=== PATIENT | female | born 1955 | race Caucasian/White ===

== ENCOUNTER → 2018-02-23 | Outpatient (CLI) | payer MEDICARE, OTHER ==
[~2018-02-23] MED LIST: ARIP1TAB12 PO; ATOR80TA45 PO; BUPR300T PO; DOCU1CAP66 PO; ESCI20TA PO; GABA300C5 PO; GLUC500T4 PO; LEVO.15 PO; LORA-650 PO; METF500T PO; MODA1TAB31 PO; OMEG1CAP53 PO; OMEP40CA2 PO; PHEN30CA2 PO; PREM0.3T2 PO; VALS1TAB64 PO
[2018-02-23 11:43] LABS: HEMATOCRIT 38.3 % (35.0-46.0); HEMOGLOBIN 12.5 GM/DL (11.6-15.3); MEAN CELL VOLUME 94.5 FL (80.0-100.0); MEAN CORPUSCULAR HGB CONC 32.8 % (32.0-36.0); MEAN PLATELET VOLUME 7.1 FL (7.0-11.0); PLATELET COUNT 260 TH/MM3 (150-450); RED BLOOD COUNT 4.05 MIL/MM3 (4.00-5.30); RED CELL DISTRIBUTION WIDTH 13.7 % (11.6-17.2); WHITE BLOOD COUNT 5.8 TH/MM3 (4.0-11.0)
[2018-02-23 12:10] LABS: BICARBONATE 29.8 MEQ/L (21.0-32.0); CALCIUM 9.2 MG/DL (8.5-10.1); CREATININE 0.95 MG/DL (0.50-1.00)
[2018-02-23 13:12] LABS: BILIRUBIN, URINE NEG (NEG); BLOOD, URINE NEG (NEG); GLUCOSE,URINE NEG (NEG); KETONE, URINE NEG (NEG); MUCUS URINE FEW /lpf (OCC); NITRITE,URINE NEG (NEG); PH, URINE 5.5 (5.0-8.5); SQUAMOUS EPITHELIAL CELL URINE 3 /hpf (0-5); URINE COLOR LIGHT-YELLOW (YELLW/STRAW); URINE LEUKOCYTE ESTERASE NEG (NEG)
--- NOTE | 2018-02-23 13:30 | EKG ---
Date Performed: 02/23/2018 Time Performed: 11:13:00 PTAGE: 62 years EKG: Sinus rhythm BORDERLINE LEFT AXIS DEVIATION LOW QRS VOLTAGE IN PRECORDIAL LEADS BORDERLINE ECG NO PREVIOUS TRACING DOCTOR: Jac Ortega Interpretating Date/Time 02/23/2018 13:26:44
== END ==
LOC: CPRE 10:51
PROVIDERS: ATTEND Thoracic Surgery (Cardiothoracic Vascular Surgery)
DX: Z01.810 Encounter for preprocedural cardiovascular examination (principal); Z01.812 Encounter for preprocedural laboratory examination; Z01.818 Encounter for other preprocedural examination; R91.8 Other nonspecific abnormal finding of lung field; R94.31 Abnormal electrocardiogram [ECG] [EKG]
CPT/HCPCS: 36415; 80048; 81001; 85027; 85610; 85730; 93005

== ENCOUNTER 2018-03-02 05:27 | Inpatient (IN) | payer MEDICARE, OTHER ==
[2018-03-02] VITALS (10 sets, daily range): BP systolic 98–123; BP diastolic 57–79; PULSE 67–77; RESP 20; TEMP 97.7–98.4; O2SAT 94–97
[~2018-03-02] VITALS: Ht 172.7 cm; Wt 139.0 kg
[2018-03-02] MEDS ORDERED: SODIUM CHLORID 0.9% 500 ML IV PRN (06:00)
[2018-03-02] MEDS ORDERED: METOPROLOL TARTRATE 25 MG TAB PO PRN (06:00)
[2018-03-02] MEDS ORDERED: POVIDONE IODINE 5% (ANTISEPSIS KIT) 4 APPLICATIONS EACH NARE PRN (06:00)
[2018-03-02] MEDS ORDERED: LACTATED RINGER'S 1000 ML IV PRN (06:00)
[2018-03-02] MEDS ORDERED: CHLORHEXIDINE GLUCONATE 2 % 1 PACK (2 CLOTHS) TOPICAL PRN (06:00)
[2018-03-02] MEDS ORDERED: ceFAZolin 2 GM PREMIX 50 ML ONE (06:48)
[2018-03-02] MEDS ORDERED: fentaNYL CITRATE 250 MCG/5 ML AMP ONE (06:58)
[2018-03-02] MEDS ORDERED: BUPIVACAINE LIPOSO PF 1.3% INJ 20 ML, DEXAMETHASONE INJ 4 MG, MORPHINE INJ 8 MG in SODI... IRRIGATION SCH (07:45)
[2018-03-02] MEDS ORDERED: SUGAMMADEX SODIUM 200 MG/2 ML VIAL IV PUSH ONE (10:49)
[2018-03-02] MEDS ORDERED: NALOXONE HCL 0.4 MG/ML AMP IV PUSH PRN (11:45)
[2018-03-02] MEDS ORDERED: Post-op Orders (for Pharmacy) OTHER ONE (11:45)
[2018-03-02] MEDS ORDERED: SODIUM CHLORIDE 0.9% FLUSH 10 ML FLUSH IV FLUSH PRN (11:45)
--- NOTE | 2018-03-02 11:49 | PD.OP ---
cc: Scot Dhillon MD; Viki Luu MD Operative Report Date of Surgery: Mar 02, 2018 Preoperative Diagnosis: Postoperative Diagnosis: Procedure: 1. Right Posterolateral Thoracotomy 2. Right Upper Lobectomy 3. Mediastinal Lymph Node Dissection 4. Intercostal Nerve Block Surgeon: Scot Dhillon Roller Machine Operator(s): Lisa Molina Operation and Findings: PREOPERATIVE DIAGNOSIS 1. Right Upper Lobe Lung Mass 2. COPD 3. Diabetes mellitus POSTOPERATIVE DIAGNOSIS same PROCEDURES 1. Right Posterolateral Thoracotomy 2. Right Upper Lobectomy 3. Mediastinal Lymph Node Dissection 4. Intercostal Nerve Block SURGEON Scot Dhillon MD YARD GENERAL CAR SUPERVISOR Krista Molina PA-C ANESTHESIA General double-lumen endotracheal. ELECTRICAL LINEWORKER PHUONG Jane MD DRAINS [address] COUNTS Needle, sponge, and instrument counts were correct. COMPLICATIONS None. INDICATION FOR PROCEDURE The patient is a 62 yo lady with PET positive RUL spiculated lung mass, presenting for surgical resection. DESCRIPTION OF PROCEDURE The patient was brought to the operating suite and placed in supine position. Following satisfactory induction of general double-lumen endotracheal anesthesia , the patient was placed in the left lateral decubitus position. The right chest and surrounding area was then prepped and draped in the usual sterile fashion. A standard muscle-sparing posterolateral thoracotomy was performed and the serratus anterior muscle spared. The pleural space was entered. Exploration of the chest revealed mass in the upper lobe. The inferior pulmonary ligament was divided. The pulmonary arterial supply to the upper lobe was identified, dissected free and divided as was the pulmonary venous supply. The bronchus was then dissected free, clamped and the remaining lung was insufflated without any difficulty. Lymph node dissections of level 4, 7, 8, 9 and 10 were performed along with the course of this removal. Some of these were retained with the specimen. Specimen was removed from the chest. The remaining lung was submerged under sterile water and inflated. No air leaks were identified. At this point the closure was undertaken. A 32-Kyrgyz chest tube was placed. Intercostal nerve block was performed at the level of the incision and 3 rib spaces above and below using Exparel with Decadron solution. The pericostal space was approximated with interrupted #1 Vicryl sutures in a pericostal fashion. The serratus fascia and Latissimus dorsi were closed with running 0-Vicryl and the remaining wounds closed with 3-0, and 4-0 Monocryl. The patient tolerated the procedure well and postoperatively went to the PACU in stable condition. Scot Dhillon MD Mar 02, 2018 11:48
[2018-03-02] MEDS ORDERED: PHENYLEPH/NS 1000 MCG/10 ML SYR IV ONE (12:00)
[2018-03-02] MEDS ORDERED: LIDOCAINE HCL 1% PF 5 ML SYRINGE OTHER ONE (12:00)
[2018-03-02] MEDS ORDERED: LABETALOL HCL 100 MG/20 ML VIAL IV ONE (12:00)
[2018-03-02] MEDS ORDERED: DEXAMETHASONE SOD PHOS 4 MG/ML VIAL IV ONE (12:00)
[2018-03-02] MEDS ORDERED: DO NOT ADM ANY ANTICOAGULANT DRUGS PRN (12:00)
[2018-03-02] MEDS ORDERED: ROCURONIUM INJ 50 MG/5 ML SYRINGE IV PUSH ONE (12:00)
[2018-03-02] MEDS ORDERED: ONDANSETRON HCL 4 MG/2 ML VIAL IV ONE (12:00)
[2018-03-02] MEDS ORDERED: VECURONIUM BROMIDE 20 MG VIAL IV ONE (12:00)
[2018-03-02] MEDS ORDERED: ePHEDrine/NS 25 MG/5 ML SYRINGE IV ONE (12:00)
[2018-03-02] MEDS ORDERED: PROPOFOL 200 MG/20 ML AMP IV ONE (12:00)
--- NOTE | 2018-03-02 12:44 | RADRPT ---
EXAM DATE/TIME: 03/02/2018 12:25 [facility] COMPARISON: No previous studies available for comparison. INDICATIONS : Post thoracotomy and right upper lobectomy, post chest tube placement MEDICAL HISTORY : lung mass SURGICAL HISTORY : thoracotomy, chest tube, lobectomy right upper lung ENCOUNTER: Initial ACUITY: 1 day PAIN SCORE: Non-responsive. LOCATION: Bilateral chest FINDINGS: A single AP portable semierect view of the chest was obtained and demonstrates a right-sided chest tu be in place with no visualized pneumothorax. There is volume loss in the right hemithorax with medias tinal shift to the right. There is mild hazy opacity in the right lung. There is streaky opacity at t he left lung base. The heart size appears mildly prominent. Mild subcutaneous emphysema is noted over lower right lateral chest wall. The patient is mildly rotated. There is no distinct effusion. CONCLUSION: 1. Postsurgical changes status post right thoracotomy with volume loss and mediastinal shift to the r ight. 2. Right-sided chest tube in place with no visualized pneumothorax. 3. Mild hazy opacity in the right lung. 4. Mild patchy opacity at the left lung base. Cisco Villa MD on March 02, 2018 at 12:41 Board Certified Radiologist. This report was verified electronically.
[2018-03-02] MEDS ORDERED: RESP: ALBUTEROL 2.5 MG/3 ML NEB (PRN) NEB (13:00)
[2018-03-02] MEDS ORDERED: ONDANSETRON HCL 4 MG/2 ML VIAL IV PUSH PRN (13:00)
[2018-03-02] MEDS ORDERED: ACETAMINOPHEN 325 MG TAB PO PRN (13:00)
[2018-03-02] MEDS ORDERED: PHENTERMINE 30 MG PO SCH (13:00)
[2018-03-02] MEDS: LACTATED RINGER'S 1000 ML INJ 1,000 ML IV SCH (13:00)
[2018-03-02] MEDS: MORPHINE SULFATE 30 MG/30 ML PCA IV SCH ×2 (13:21→21:20)
[2018-03-02] MEDS ORDERED: *PROMETHAZINE 25 MG/ML VIAL PERIprocedural use ONLY ONE (13:24)
[2018-03-02] MEDS: KETOROLAC TROMETHAMINE 30 MG/ML (IVP) VIAL IV PUSH SCH ×2 (14:00→21:05)
[2018-03-02] MEDS: PCA - TOTAL MG MORPHINE DELIVERED PER SHIFT SCH ×2 (14:00→21:41)
[2018-03-02] MEDS: ACETAMINOPHEN 1000 MG/100 ML 100 ML IV SCH ×2 (14:00→21:04)
--- NOTE | 2018-03-02 15:57 | PD.CAR.PN ---
CVT Progress Note Subjective/Hospital Course: 62/ female with recent findings of a right upper lobe lung mass / W/U demonstrated 2.1cm RUL spiculated PET positive mass electively admitted for surgery PMH: depression, HLP, HTN, obesity, VANIA surgery 03/02 Right Posterolateral Thoracotomy, Right Upper Lobectomy, Mediastinal Lymph Node Dissection Objective: Vital Signs Date Time Temp Pulse Resp B/P (MAP) Pulse Ox O2 Delivery O2 Flow Rate FiO2 03/02/18 15:00 70 03/02/18 15:00 98.4 71 20 114/59 (77) 94 03/02/18 14:30 67 03/02/18 14:30 97.9 67 20 123/79 (94) 97 03/02/18 14:00 97.6 67 16 130/71 (90) 97 Nasal Cannula 3 03/02/18 13:30 66 16 132/71 (91) 97 Nasal Cannula 3 03/02/18 13:26 15 03/02/18 13:21 15 03/02/18 13:00 97.8 68 16 129/69 (89) 96 Nasal Cannula 3 03/02/18 12:45 66 15 126/65 (85) 95 Nasal Cannula 3 03/02/18 12:30 67 15 119/69 (86) 95 Nasal Cannula 3 03/02/18 12:15 68 15 126/66 (86) 94 Nasal Cannula 3 03/02/18 12:07 98.6 69 16 117/68 (84) 95 Nasal Cannula 3 03/02/18 06:41 98.6 74 20 149/72 (97) 95 (1) Hyperlipemia (2) Hypertension (3) Depression (4) right upper lobe lung mass Sarah Espinosa Mar 02, 2018 15:57
--- NOTE | 2018-03-02 15:59 | HHI.FF ---
Face to Face Verification Diagnosis: (1) right thoracotomy (2) Depression (3) Hyperlipemia (4) Hypertension (5) right upper lobe lung mass Home Health Nursing Order: Medication education-adverse effect Wound care and dressing changes Nursing assessment with vital signs Instructions: Thoracic Surgery patients Mandatory frequency Assess and evaluation, 2-3 x a week for one week Initial visit 1. Review post chest surgery instructions chest precautions, Activity, Elastic hose, Incision care, Driving, Incentive spirometry, Smoking, [place] , Work and other) 2. Need Betadine to paint incision 3. Medication reconciliation 4. Importance of follow up care/ check on appointments 5. Make calendar record temperature daily 6. When to call Home nurse, review instructions, phone list 7. Incentive Spirometry, demonstration Visit 1- Begin discharge instruction for patient family and/ or caregiver using teach back method- 1. Signs and symptoms of infection 2. Disease characteristics 3. Medicines and side effects 4. Foods and nutrition/ appetite 5. Infection control/ hand washing/ hygiene Visit 2- Continue teaching 1. Discharge instructions- include additional information on smoking cessation , Visit 3- Continue teaching- 1. Cough and deep breathing, incision monitoring. For any questions please call : / [employer] [facility] Cardiothoracic Surgery Incentive spirometry Q1 hr x 10, while awake, also use acapella device hourly whole awake chest wall Precautions: NO pushing or pulling, ( pt must use chest pillow to support chest with all activities and with coughing Daily incision care: ok to shower daily, no tub bath. Wash all incisions with liquid dial soap, clean wash cloth to each site, rinse and pat dry. Observe for any signs of infection, such as drainage which is dark yellow, solorzano, green or foul smelling. Immediately report to the surgeon any drainage from the chest incision, or legs, and for any abnormal drainage from the chest tube sites. Notify surgeon if any temp >101.5 degrees F. When specialty dressing removed/ or if you do not have one, continue to shower daily as above, then rinse and pat incision dry and paint with betadine daily x 5 days. Allow steri strips to fall off if you have any. Avoid lotions, creams, salves, oils, etc. for the first month F/U appointment: as per [place] instructions: PCP in 2 weeks, CV surgeon 2 weeks, Manager Of Organizational Development 3-4 weeks For any questions regarding incisions/ dressing / meds / post op care or above Symptoms, Tuesday 8am-5pm Heart & Vascular Surgery Office ( Dr. Dhillon & Dr. Lorenzo), After Hours / Nights (5pm -8am) Weekends and Holidays Please call [facility] Cardiac Inter[facility] Care Unit (CIC) Charge Nurse I have seen patient Shikha Reinoso on 03/02/18. My clinical findings support the need for the requested home health care services because: Deconditioned w/ increased weakness I certify that my clinical findings support that this patient is homebound because: Post-op weakness Sarah Espinosa Mar 02, 2018 15:59
[2018-03-02] MEDS: SODIUM CHLORIDE 0.9% FLUSH 10 ML FLUSH IV FLUSH SCH (21:00)
[2018-03-02] MEDS ORDERED: OMEGA 3 ACID ETHYL ESTERS PO SCH (21:00)
[2018-03-02] MEDS: PANTOPRAZOLE SOD 40 MG DELAYED RELEASE TAB PO SCH (21:05)
[2018-03-02] MEDS: DOCUSATE CALCIUM 240 MG CAP PO SCH (21:05)
[2018-03-02] MEDS: GABAPENTIN 300 MG CAP PO SCH (21:05)
[2018-03-02] MEDS: ATORVASTATIN 80 MG TAB PO SCH (21:05)
[2018-03-02] MEDS: RESP: ALBUTEROL 2.5 MG/3 ML NEB (SCH) NEB (22:00)
[2018-03-03] VITALS (30 sets, daily range): BP systolic 93–110; BP diastolic 52–58; PULSE 68–98; RESP 18; TEMP 97.7–98.2; O2SAT 94–100
[2018-03-03] MEDS: ACETAMINOPHEN 1000 MG/100 ML 100 ML IV SCH ×2 (02:24→09:04)
[2018-03-03] MEDS: KETOROLAC TROMETHAMINE 30 MG/ML (IVP) VIAL IV PUSH SCH ×2 (02:25→08:00)
[2018-03-03] MEDS: ceFAZolin 2 GM/DEX PREMIX 50 ML IV SCH ×2 (02:45→11:00)
[2018-03-03] MEDS: RESP: ALBUTEROL 2.5 MG/3 ML NEB (SCH) NEB ×4 (03:41→20:36)
[2018-03-03 05:23] LABS: AUTOMATED NEUTROPHIL # 12.4 TH/MM3 (1.8-7.7); BASOPHIL % 0.1 % (0.0-2.0); HEMOGLOBIN 12.1 GM/DL (11.6-15.3); LYMPH % 8.5 % (9.0-44.0); LYMPHOCYTE # 1.3 TH/MM3 (1.0-4.8); MEAN CELL VOLUME 94.8 FL (80.0-100.0); MEAN CORPUSCULAR HEMOGLOBIN 30.9 PG (27.0-34.0); MEAN CORPUSCULAR HGB CONC 32.6 % (32.0-36.0); MEAN PLATELET VOLUME 7.1 FL (7.0-11.0); MONO % 9.1 % (0.0-8.0); MONOCYTE # 1.4 TH/MM3 (0-0.9); NEUT % 82.3 % (16.0-70.0); PLATELET COUNT 265 TH/MM3 (150-450); RED BLOOD COUNT 3.91 MIL/MM3 (4.00-5.30); RED CELL DISTRIBUTION WIDTH 14.2 % (11.6-17.2)
--- NOTE | 2018-03-03 05:34 | RADRPT ---
EXAM DATE/TIME: 03/03/2018 04:59 [facility] COMPARISON: CHEST SINGLE AP, March 02, 2018, 12:25. INDICATIONS : Status post thoracotomy. MEDICAL HISTORY : lung mass SURGICAL HISTORY : thoracotomy, chest tube, lobectomy right upper lung ENCOUNTER: Subsequent ACUITY: 1 day PAIN SCORE: Non-responsive. LOCATION: Bilateral chest FINDINGS: Slight decrease in the amount of volume loss in the right hemithorax. Right chest tube stable in pos ition. No evidence of pneumothorax. Mild subcutaneous emphysema in the lower right chest adjacent t o the chest tube tract. The left lung is clear. The heart is stable in configuration. CONCLUSION: Diminished volume in the right hemithorax, slightly improved from prior. Decrease in consolidation i n the right mid and lower lung. Luis Spencer MD on March 03, 2018 at 5:30 Board Certified Radiologist. This report was verified electronically.
[2018-03-03 05:49] LABS: BICARBONATE 25.3 MEQ/L (21.0-32.0); CALCIUM 8.2 MG/DL (8.5-10.1); CREATININE 1.32 MG/DL (0.50-1.00)
[2018-03-03] MEDS: PCA - TOTAL MG MORPHINE DELIVERED PER SHIFT SCH ×3 (06:00→22:00)
[2018-03-03] MEDS: LEVOTHYROXINE SODIUM 150 MCG TAB PO SCH (06:04)
[2018-03-03] MEDS ORDERED: MEDROXYPROGESTERONE PO SCH (09:00)
[2018-03-03] MEDS ORDERED: CONJUGATED ESTROGENS PO SCH (09:00)
[2018-03-03] MEDS: LORATADINE 10 MG TAB PO SCH (09:00)
[2018-03-03] MEDS: metFORMIN HCL 500 MG TAB PO SCH (09:02)
[2018-03-03] MEDS: GABAPENTIN 300 MG CAP PO SCH ×2 (09:02→20:19)
[2018-03-03] MEDS: ARIPiprazole 10 MG TAB PO SCH (09:02)
[2018-03-03] MEDS: DOCUSATE SODIUM 100 MG CAP PO SCH (09:02)
[2018-03-03] MEDS: buPROPion HCL 150 MG EXTENDED RELEASE TAB PO SCH (09:03)
[2018-03-03] MEDS: ESCITALOPRAM OXALATE 20 MG TAB PO SCH (09:03)
[2018-03-03] MEDS: VALSARTAN 80 MG TAB PO SCH (09:04)
[2018-03-03] MEDS: MODAFINIL 200 MG TAB PO SCH (11:00)
[2018-03-03] MEDS: SODIUM CHLORIDE 0.9% FLUSH 10 ML FLUSH IV FLUSH SCH ×2 (11:06→20:19)
--- NOTE | 2018-03-03 13:18 | PD.CAR.PN ---
CVT Progress Note Subjective/Hospital Course: 62/ female with recent findings of a right upper lobe lung mass / W/U demonstrated 2.1cm RUL spiculated PET positive mass electively admitted for surgery PMH: depression, HLP, HTN, obesity, VANIA surgery 03/02 Right Posterolateral Thoracotomy, Right Upper Lobectomy, Mediastinal Lymph Node Dissection 03/03 chest tube drained 120cc/ 12 hrs on nasal cannula / Home Bipap at night keep chest tube in , await path pulm toileting OOB ambulate Objective: GENERAL: A&O x 3 SKIN: Warm and dry. incision intact and well approximated right postero lateral chest wall HEAD: Normocephalic. EYES: No scleral icterus. No injection or drainage. NECK: Supple, trachea midline. No JVD or lymphadenopathy. CARDIOVASCULAR: Regular rate and rhythm without murmurs, gallops, or rubs. RESPIRATORY: Breath sounds equal bilaterally. No accessory muscle use. chest tube to wall suction, no air leak / drained 120cc/ 12hrs GASTROINTESTINAL: Abdomen soft, non-tender, nondistended. MUSCULOSKELETAL: No cyanosis, or edema. BACK: Nontender without obvious deformity. No CVA tenderness. Vital Signs Date Time Temp Pulse Resp B/P (MAP) Pulse Ox O2 Delivery O2 Flow Rate FiO2 03/03/18 08:00 98 Nasal Cannula 3.00 03/03/18 07:00 98.2 85 18 110/58 (75) 98 03/03/18 07:00 85 03/03/18 06:17 72 03/03/18 06:00 18 03/03/18 05:30 71 03/03/18 04:53 74 03/03/18 04:52 95 Bi-Pap 03/03/18 04:50 97.7 74 99/55 (70) 95 03/03/18 03:01 18 03/03/18 03:00 68 03/03/18 02:00 70 03/03/18 01:00 70 03/03/18 00:35 94 Nasal Cannula 3.00 Bi-Pap 03/03/18 00:33 97.7 77 97/52 (67) 94 03/03/18 00:00 72 03/02/18 23:00 72 03/02/18 22:00 76 03/02/18 21:41 16 4/26/18 21:20 16 03/02/18 21:00 74 03/02/18 20:00 74 03/02/18 19:00 95 Nasal Cannula 3.00 03/02/18 19:00 74 03/02/18 19:00 95 Nasal Cannula 3.00 03/02/18 19:00 97.7 72 98/57 (71) 95 03/02/18 18:00 73 03/02/18 17:00 77 03/02/18 16:00 69 03/02/18 15:00 70 03/02/18 15:00 98.4 71 20 114/59 (77) 94 03/02/18 14:30 67 03/02/18 14:30 97.9 67 20 123/79 (94) 97 03/02/18 14:00 97.6 67 16 130/71 (90) 97 Nasal Cannula 3 03/02/18 13:30 66 16 132/71 (91) 97 Nasal Cannula 3 03/02/18 13:26 15 03/02/18 13:21 15 Labs: Laboratory Tests Test 03/03/18 04:12 White Blood Count 15.0 TH/MM3 (4.0-11.0) Red Blood Count 3.91 MIL/MM3 (4.00-5.30) Hemoglobin 12.1 GM/DL (11.6-15.3) Hematocrit 37.0 % (35.0-46.0) Mean Corpuscular Volume 94.8 FL (80.0-100.0) Mean Corpuscular Hemoglobin 30.9 PG (27.0-34.0) Mean Corpuscular Hemoglobin Concent 32.6 % (32.0-36.0) Red Cell Distribution Width 14.2 % (11.6-17.2) Platelet Count 265 TH/MM3 (150-450) Mean Platelet Volume 7.1 FL (7.0-11.0) Neutrophils (%) (Auto) 82.3 % (16.0-70.0) Lymphocytes (%) (Auto) 8.5 % (9.0-44.0) Monocytes (%) (Auto) 9.1 % (0.0-8.0) Eosinophils (%) (Auto) 0.0 % (0.0-4.0) Basophils (%) (Auto) 0.1 % (0.0-2.0) Neutrophils # (Auto) 12.4 TH/MM3 (1.8-7.7) Lymphocytes # (Auto) 1.3 TH/MM3 (1.0-4.8) Monocytes # (Auto) 1.4 TH/MM3 (0-0.9) Eosinophils # (Auto) 0.0 TH/MM3 (0-0.4) Basophils # (Auto) 0.0 TH/MM3 (0-0.2) CBC Comment DIFF FINAL Differential Comment Blood Urea Nitrogen 21 MG/DL (7-18) Creatinine 1.32 MG/DL (0.50-1.00) Random Glucose 127 MG/DL (74-106) Calcium Level 8.2 MG/DL (8.5-10.1) Sodium Level 142 MEQ/L (136-145) Potassium Level 4.8 MEQ/L (3.5-5.1) Chloride Level 107 MEQ/L (98-107) Carbon Dioxide Level 25.3 MEQ/L (21.0-32.0) Anion Gap 10 MEQ/L (5-15) Estimat Glomerular Filtration Rate 41 ML/MIN (>89) Result Diagram: 03/03/18 04103/03/18 041 Telemetry: NSR (1) right thoracotomy Plan: pulm toielting , nebs ezpap OOB ambulate MANAGER 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
[2018-03-03] MEDS: DOCUSATE CALCIUM 240 MG CAP PO SCH (20:19)
[2018-03-03] MEDS: PANTOPRAZOLE SOD 40 MG DELAYED RELEASE TAB PO SCH (20:19)
[2018-03-03] MEDS: ATORVASTATIN 80 MG TAB PO SCH (20:19)
[2018-03-03] MEDS: LACTATED RINGER'S 1000 ML INJ 1,000 ML IV SCH (20:20)
[2018-03-04] VITALS (30 sets, daily range): BP systolic 91–108; BP diastolic 51–58; PULSE 78–100; RESP 18; TEMP 98.1–98.8; O2SAT 89–98
[2018-03-04] MEDS: RESP: ALBUTEROL 2.5 MG/3 ML NEB (SCH) NEB ×4 (04:01→21:24)
[2018-03-04] MEDS: PCA - TOTAL MG MORPHINE DELIVERED PER SHIFT SCH ×3 (06:00→22:00)
[2018-03-04] MEDS: LEVOTHYROXINE SODIUM 150 MCG TAB PO SCH (06:08)
[2018-03-04] MEDS: ARIPiprazole 10 MG TAB PO SCH (08:45)
[2018-03-04] MEDS: VALSARTAN 80 MG TAB PO SCH (08:45)
[2018-03-04] MEDS: buPROPion HCL 150 MG EXTENDED RELEASE TAB PO SCH (08:45)
[2018-03-04] MEDS: DOCUSATE SODIUM 100 MG CAP PO SCH (08:45)
[2018-03-04] MEDS: ESCITALOPRAM OXALATE 20 MG TAB PO SCH (08:45)
[2018-03-04] MEDS: MODAFINIL 200 MG TAB PO SCH (08:45)
[2018-03-04] MEDS: metFORMIN HCL 500 MG TAB PO SCH (08:45)
[2018-03-04] MEDS: GABAPENTIN 300 MG CAP PO SCH ×2 (08:46→20:37)
[2018-03-04] MEDS: SODIUM CHLORIDE 0.9% FLUSH 10 ML FLUSH IV FLUSH SCH ×2 (08:46→20:38)
[2018-03-04] MEDS: LORATADINE 10 MG TAB PO SCH (08:46)
[2018-03-04] MEDS: MORPHINE SULFATE 30 MG/30 ML PCA IV SCH (09:09)
--- NOTE | 2018-03-04 11:04 | PD.CAR.PN ---
CVT Progress Note CVT: POD #: 2 Subjective/Hospital Course: 62/ female with recent findings of a right upper lobe lung mass / W/U demonstrated 2.1cm RUL spiculated PET positive mass electively admitted for surgery PMH: depression, HLP, HTN, obesity, VANIA surgery 03/02 Right Posterolateral Thoracotomy, Right Upper Lobectomy, Mediastinal Lymph Node Dissection 03/03 chest tube drained 120cc/ 12 hrs on nasal cannula / Home Bipap at night keep chest tube in , await path pulm toileting OOB ambulate 03/04/18 c/o incisional pain. Objective: Vital Signs Date Time Temp Pulse Resp B/P (MAP) Pulse Ox O2 Delivery O2 Flow Rate FiO2 03/04/18 10:00 87 03/04/18 09:25 94 Nasal Cannula 2.00 03/04/18 09:09 18 03/04/18 09:00 90 03/04/18 08:00 82 03/04/18 07:23 98 Nasal Cannula 2.00 03/04/18 07:23 98.1 86 18 95/52 (66) 98 03/04/18 07:00 87 03/04/18 06:01 87 03/04/18 06:00 18 03/04/18 05:03 85 03/04/18 04:09 87 03/04/18 04:09 95 Bi-Pap 5.00 03/04/18 04:08 98.7 85 108/58 (75) 95 03/04/18 03:04 84 03/04/18 02:03 84 03/04/18 01:02 84 03/04/18 00:06 83 03/03/18 23:56 94 Bi-Pap 5.00 03/03/18 23:55 97.9 84 100/58 (72) 94 03/03/18 23:14 81 03/03/18 22:02 98 03/03/18 22:00 18 03/03/18 21:05 95 03/03/18 20:34 96 Nasal Cannula 2.00 03/03/18 20:27 79 03/03/18 19:29 97 Nasal Cannula 2.00 03/03/18 19:28 98.1 79 93/53 (66) 97 03/03/18 19:25 79 03/03/18 18:00 78 03/03/18 17:00 76 4/27/18 16:05 100 Nasal Cannula 3.00 03/03/18 16:00 72 03/03/18 15:00 98.0 85 18 97/55 (69) 95 03/03/18 15:00 72 03/03/18 15:00 95 Nasal Cannula 3.00 03/03/18 14:00 76 03/03/18 14:00 18 03/03/18 13:00 82 03/03/18 12:00 76 Result Diagram: 03/03/18 0412 03/03/18 0412 Cardiovascular: RRR Telemetry: CTA Pulmonary: CTA GI/: NABS Incision: dry and intact CT: ~50ml/12 hrs, no air leak Plan: Chest tube to water seal today Encourage ambulation Stim BM (1) right thoracotomy Plan: pulm toieldeyanira , nebs ezpap OOB ambulate APPLIED PSYCHOLOGY CHAIR for pain await path chest tube to wall suction (2) right upper lobe lung mass (3) Hyperlipemia (4) Hypertension Plan: controlled (5) Depression Plan: home Jalyn Castro MD Mar 04, 2018 11:04
[2018-03-04] MEDS: LACTATED RINGER'S 1000 ML INJ 1,000 ML IV SCH (12:07)
[2018-03-04] MEDS: ATORVASTATIN 80 MG TAB PO SCH (20:37)
[2018-03-04] MEDS: PANTOPRAZOLE SOD 40 MG DELAYED RELEASE TAB PO SCH (20:37)
[2018-03-04] MEDS: DOCUSATE CALCIUM 240 MG CAP PO SCH (20:37)
[2018-03-05] VITALS (31 sets, daily range): BP systolic 99–139; BP diastolic 52–80; PULSE 77–97; RESP 16–18; TEMP 98.2–99.5; O2SAT 93–97
[2018-03-05] MEDS: RESP: ALBUTEROL 2.5 MG/3 ML NEB (SCH) NEB ×4 (04:41→21:43)
[2018-03-05] MEDS: PCA - TOTAL MG MORPHINE DELIVERED PER SHIFT SCH (06:00)
[2018-03-05] MEDS: LEVOTHYROXINE SODIUM 150 MCG TAB PO SCH (07:14)
[2018-03-05] MEDS: MORPHINE SULFATE 30 MG/30 ML PCA IV SCH (07:14)
[2018-03-05] MEDS: VALSARTAN 80 MG TAB PO SCH (08:27)
[2018-03-05] MEDS: buPROPion HCL 150 MG EXTENDED RELEASE TAB PO SCH (08:27)
[2018-03-05] MEDS: GABAPENTIN 300 MG CAP PO SCH ×2 (08:27→20:39)
[2018-03-05] MEDS: DOCUSATE SODIUM 100 MG CAP PO SCH (08:27)
[2018-03-05] MEDS: metFORMIN HCL 500 MG TAB PO SCH (08:27)
[2018-03-05] MEDS: ARIPiprazole 10 MG TAB PO SCH (08:27)
[2018-03-05] MEDS: LORATADINE 10 MG TAB PO SCH (08:27)
[2018-03-05] MEDS: MODAFINIL 200 MG TAB PO SCH (08:27)
[2018-03-05] MEDS: ESCITALOPRAM OXALATE 20 MG TAB PO SCH (08:28)
[2018-03-05] MEDS: SODIUM CHLORIDE 0.9% FLUSH 10 ML FLUSH IV FLUSH SCH ×2 (08:28→20:40)
[2018-03-05] MEDS: MAGNESIUM HYDROXIDE SUSP 30 ML CUP PO PRN (08:31)
--- NOTE | 2018-03-05 10:18 | PD.CAR.PN ---
CVT Progress Note CVT: POD #: 3 Subjective/Hospital Course: 62/ female with recent findings of a right upper lobe lung mass / W/U demonstrated 2.1cm RUL spiculated PET positive mass electively admitted for surgery PMH: depression, HLP, HTN, obesity, VANIA surgery 03/02 Right Posterolateral Thoracotomy, Right Upper Lobectomy, Mediastinal Lymph Node Dissection 03/03 chest tube drained 120cc/ 12 hrs on nasal cannula / Home Bipap at night keep chest tube in , await path pulm toileting OOB ambulate 03/04/18 c/o incisional pain. 03/05/18 doing well. no complaints Objective: Vital Signs Date Time Temp Pulse Resp B/P (MAP) Pulse Ox O2 Delivery O2 Flow Rate FiO2 03/05/18 10:10 96 Nasal Cannula 2.00 03/05/18 10:00 77 03/05/18 09:00 80 03/05/18 08:00 84 03/05/18 07:42 98.5 83 16 99/56 (70) 96 03/05/18 07:41 96 Nasal Cannula 2.00 03/05/18 07:14 16 03/05/18 07:00 85 03/05/18 06:03 86 03/05/18 06:00 18 03/05/18 05:01 89 03/05/18 04:33 94 03/05/18 04:00 98.4 88 18 138/80 (99) 93 03/05/18 03:22 84 03/05/18 03:22 94 Nasal Cannula 2.00 03/05/18 02:00 84 03/05/18 01:00 88 03/05/18 00:00 88 03/04/18 23:40 98.1 92 18 96/54 (68) 89 03/04/18 23:15 90 03/04/18 23:14 94 Nasal Cannula 2.00 03/04/18 22:00 16 03/04/18 22:00 90 03/04/18 21:25 Nasal Cannula 2.00 03/04/18 21:00 87 03/04/18 20:00 87 03/04/18 20:00 94 Nasal Cannula 2.00 03/04/18 20:00 98.2 88 18 91/54 (66) 95 03/04/18 19:00 88 03/04/18 18:00 90 03/04/18 17:00 84 03/04/18 16:00 78 03/04/18 15:20 95 Nasal Cannula 2.00 03/04/18 15:18 98.4 83 18 98/54 (69) 95 03/04/18 15:00 88 03/04/18 14:00 85 03/04/18 14:00 18 03/04/18 13:00 83 03/04/18 12:00 96 03/04/18 11:43 93 Nasal Cannula 2.00 03/04/18 11:42 98.8 91 18 93/51 (65) 92 03/04/18 11:00 100 Result Diagram: 03/03/1841103/03/18411 Cardiovascular: RRR Telemetry: NSR Pulmonary: CTA GI/: NABS Incision: dry and intact CT: 80ml/12hrs no air leak Plan: Remove chest tube D/C 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
[2018-03-05] MEDS: ACETAMINOPHEN/HYDROcodone 325 MG/5 MG TAB PO PRN ×3 (10:31→17:57)
[2018-03-05] MEDS: PANTOPRAZOLE SOD 40 MG DELAYED RELEASE TAB PO SCH (20:39)
[2018-03-05] MEDS: ATORVASTATIN 80 MG TAB PO SCH (20:39)
[2018-03-05] MEDS: DOCUSATE CALCIUM 240 MG CAP PO SCH (20:39)
[2018-03-06] VITALS (14 sets, daily range): BP systolic 89–111; BP diastolic 49–72; PULSE 77–89; RESP 18; TEMP 98.1–98.6; O2SAT 96–100
[2018-03-06] MEDS: RESP: ALBUTEROL 2.5 MG/3 ML NEB (SCH) NEB ×2 (04:33→11:11)
[2018-03-06] MEDS: LEVOTHYROXINE SODIUM 150 MCG TAB PO SCH (06:29)
--- NOTE | 2018-03-06 08:37 | RADRPT ---
EXAM DATE/TIME: 03/06/2018 07:59 [facility] COMPARISON: CHEST SINGLE AP, March 03, 2018, 4:59. INDICATIONS : Pleural effusion. MEDICAL HISTORY : Carcinoma, lung. SURGICAL HISTORY : Lobectomy. ENCOUNTER: Subsequent ACUITY: 4 - 6 days PAIN SCORE: 5/10 LOCATION: Right chest FINDINGS: The heart size is normal. Clips are seen in the right upper chest. There does appear to be shift of t he heart and mediastinal structures towards the right from prior partial pneumonectomy. There is post surgical change at the fifth posterior right rib. The previously seen right chest tube is been remove d. There is a small pneumothorax seen over the upper right lung measure up to 1.1 cm. The left lung i s clear. CONCLUSION: 1. Status post removal of the right sided chest tube with a small right pneumothorax measuring 1.1 cm over the right apex. 2. The patient is status post right partial pneumonectomy. This information was relayed by telephone to Mana, the patient's nurse. Serjio Novak MD on March 06, 2018 at 8:27 Board Certified Radiologist. This report was verified electronically.
[2018-03-06] MEDS: VALSARTAN 80 MG TAB PO SCH (09:00)
[2018-03-06] MEDS: ESCITALOPRAM OXALATE 20 MG TAB PO SCH (09:06)
[2018-03-06] MEDS: ARIPiprazole 10 MG TAB PO SCH (09:06)
[2018-03-06] MEDS: GABAPENTIN 300 MG CAP PO SCH (09:06)
[2018-03-06] MEDS: metFORMIN HCL 500 MG TAB PO SCH (09:06)
[2018-03-06] MEDS: MODAFINIL 200 MG TAB PO SCH (09:06)
[2018-03-06] MEDS: LORATADINE 10 MG TAB PO SCH (09:06)
[2018-03-06] MEDS: buPROPion HCL 150 MG EXTENDED RELEASE TAB PO SCH (09:06)
[2018-03-06] MEDS: DOCUSATE SODIUM 100 MG CAP PO SCH (09:06)
[2018-03-06] MEDS: ACETAMINOPHEN/HYDROcodone 325 MG/5 MG TAB PO PRN ×2 (09:07→11:22)
[2018-03-06] MEDS: SODIUM CHLORIDE 0.9% FLUSH 10 ML FLUSH IV FLUSH SCH (09:07)
[2018-03-06] MEDS: MAGNESIUM HYDROXIDE SUSP 30 ML CUP PO PRN (09:09)
[2018-03-06] MEDS ORDERED: HYDR-3516 PO (10:56)
[2018-03-06] MEDS ORDERED: DIOV40TA PO (10:56)
[2018-03-06] MEDS ORDERED: BISACODYL 10 MG SUPP RECTAL ONE (11:00)
--- NOTE | 2018-03-06 11:03 | HHI.DS ---
Discharge Summary Admission Date Mar 02, 2018 at 05:27 Discharge Date: Mar 06, 2018 Admitting Diagnosis 1. Right Upper Lobe Lung Mass 2. COPD 3. Diabetes mellitus (1) Depression Diagnosis: Principal ICD Codes: F32.9 - Major depressive disorder, single episode, unspecified Status: Chronic (2) Hypertension Diagnosis: Principal ICD Codes: I10 - Essential (primary) hypertension Status: Chronic (3) Hyperlipemia Diagnosis: Principal ICD Codes: E78.5 - Hyperlipidemia, unspecified Status: Chronic (4) right upper lobe lung mass Diagnosis: Principal (5) right thoracotomy Diagnosis: Secondary Procedures 1. Right Posterolateral Thoracotomy 03/02 2. Right Upper Lobectomy 3. Mediastinal Lymph Node Dissection 4. Intercostal Nerve Block Brief History 62/ female with recent findings of a right upper lobe lung mass / W/U demonstrated 2.1cm RUL spiculated PET positive mass electively admitted for surgery PMH: depression, HLP, HTN, obesity, VANIA surgery 03/02 Right Posterolateral Thoracotomy, Right Upper Lobectomy, Mediastinal Lymph Node Dissection CBC/BMP: 03/03/18 0412 03/03/18 0412 Imaging Last Impressions Chest X-Ray 03/06/18 0600 Signed Impressions: Service Date/Time: Tuesday, March 06, 2018 07:59 - CONCLUSION: 1. Status post removal of the right sided chest tube with a small right pneumothorax measuring 1.1 cm over the right apex. 2. The patient is status post right partial pneumonectomy. This information was relayed by telephone to Mana, the patient's nurse. Serjio Novak MD PE at Discharge GENERAL: A&O x 3 SKIN: Warm and dry. 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 EYES: No scleral icterus. No injection or drainage. NECK: Supple, trachea midline. No JVD or lymphadenopathy. CARDIOVASCULAR: Regular rate and rhythm without murmurs, gallops, or rubs. RESPIRATORY: Breath sounds equal bilaterally. No accessory muscle use. GASTROINTESTINAL: Abdomen soft, non-tender, nondistended. MUSCULOSKELETAL: No cyanosis, or edema. BACK: Nontender without obvious deformity. No CVA tenderness. Hospital Course surgery 03/02 Right Posterolateral Thoracotomy, Right Upper Lobectomy, Mediastinal Lymph Node Dissection 03/03 chest tube drained 120cc/ 12 hrs on nasal cannula / Home Bipap at night keep chest tube in , await path pulm toileting OOB ambulate 03/04/18 c/o incisional pain. 03/05/18 doing well. no complaints 03/06 doing well, dc after pt has BM, wean off path still pending will dc home later today Pt Condition on Discharge: Good Discharge Disposition: Disch w/ Home Health Serv Discharge Instructions DIET: Follow Instructions for: As Tolerated, No Restrictions, Heart Healthy Diet Activities you can perform: Full Weight Bearing, Shower Only-No Bath Activities to avoid: Strenuous Activity, Driving Additional Activity Instructio: no lifting > 8 lbs or gallon of milk Follow up Referrals: PCP Follow-up Pulmonology - 4 Weeks with Viki Luu MD Surgical - 2 Weeks with Scot Dhillon MD New Orders: X-RAY CHEST PA & LAT - 1 Week New Medications: Valsartan (Diovan) 40 Mg Tab 20 MG PO BID for Blood Pressure Management, #60 TAB 2 Refills Hydrocodone/Acetaminophen (Hydrocodone-Acetamin 5-325 mg) 5 Mg-325 Mg Tablet 1 TAB PO Q4H PRN for PAIN SCALE 3 TO 5, #40 TAB 0 Refills Continued Medications: Aripiprazole (Aripiprazole) 10 Mg Tab 10 MG PO DAILY, #30 TAB 0 Refills Atorvastatin (Atorvastatin) 80 Mg Tab 80 MG PO HS for Cholesterol Management, #30 TAB 0 Refills Bupropion HCl ER 24 HR (Bupropion HCl ER 24 HR) 300 Mg Tab 300 MG PO DAILY for Control Depression, TAB 0 Refills Conjugated Estrogens-Medroxyprogesterone (Prempro Blister Pack) 0.3-1.5 Mg Tab 1 TAB PO DAILY for Estrogen Supplements, #1 PACK 0 Refills Docusate Sodium (Stool Softener) 100 Mg Cap 1 CAP PO DAILY, CAP Escitalopram (Escitalopram) 20 Mg Tab 20 MG PO DAILY, #30 TAB 0 Refills Gabapentin (Gabapentin) 300 Mg Cap 300 MG PO BID, #60 CAP 0 Refills Glucosamine-Chondroitin (Glucosamine-Chondroitin) 500-400 Mg Tab 1 TAB PO DAILY for Herbal Supplements, TAB 0 Refills Levothyroxine (Synthroid) 150 Mcg Tab 150 MCG PO DAILY for Thyroid, #30 TAB 0 Refills Loratadine (Allergy Relief) 10 Mg Tab 10 MG PO DAILY, TAB Metformin (Metformin) 500 Mg Tab 500 MG PO DAILY for Blood Sugar Management, #30 TAB 0 Refills With a meal Modafinil (Provigil) 200 Mg Tab 200 MG PO DAILY for Manage Daytime Sleepiness, TAB 0 Refills [id number] Ethyl Esters (Lovaza) 1 Gm Cap 2 GM PO BID for Manage Triglycerides, #120 CAP 0 Refills Omeprazole (Omeprazole) 40 Mg Cap 40 MG PO DAILY, #30 CAP 0 Refills Phentermine (Phentermine) 30 Mg Cap 1 CAP PO DAILY Discontinued Medications: Valsartan (Valsartan) 80 Mg Tab 80 MG PO DAILY, #30 TAB 0 Refills Sarah Espinosa Mar 06, 2018 11:03
== END 2018-03-06 12:38 | disposition home health service (06) | DRG 164 ==
LOC: HSDI 05:27 → EDUNIT# 07:30 → HSDI 12:56 → HCPC 14:10
PROVIDERS: ADMIT Thoracic Surgery (Cardiothoracic Vascular Surgery); ATTEND Thoracic Surgery (Cardiothoracic Vascular Surgery)
PROC: 07B70ZX Excision of Thorax Lymphatic, Open Approach, Diagnostic (ICD-10-PCS; 2018-03-02)
PROC: 3E0T3BZ Introduction of Anesthetic Agent into Peripheral Nerves and Plexi, Percutaneous Approach (ICD-10-PCS; 2018-03-02)
PROC: 0BTC0ZZ Resection of Right Upper Lung Lobe, Open Approach (ICD-10-PCS; principal; 2018-03-02 08:32)
DX: C34.11 Malignant neoplasm of upper lobe, right bronchus or lung (principal); Z68.42 Body mass index [BMI] 45.0-49.9, adult; J44.9 Chronic obstructive pulmonary disease, unspecified; I10 Essential (primary) hypertension; E11.9 Type 2 diabetes mellitus without complications; G47.33 Obstructive sleep apnea (adult) (pediatric); E78.5 Hyperlipidemia, unspecified; E66.9 Obesity, unspecified; F32.9 Major depressive disorder, single episode, unspecified; Z79.84 Long term (current) use of oral hypoglycemic drugs
CPT/HCPCS: 71045; 71046; 76937; 80048; 82948; 85025; 86850; 86900; 86901; 86920; 88305; 88307; 94150; 94640; 94664; 94667; 94668; C9290; J0131; J0690; J1100; J1885; J2270; J2370; J2405; J2550; J3010; J7120; J7613

== ENCOUNTER 2018-05-17 15:18 | Inpatient (IN) ==
[2018-05-17 15:28] LABS: ABG Base Excess -5.6 mmol/L (-2-2); ABG PCO2 43 mmHg (38-42); ABG PO2 132 mmHg (61-120)
[2018-05-17 15:35] LABS: Baso # (Auto) 0.1 th/mm3 (0.0-0.2); Baso % (Auto) 0.6 % (0.0-2.0); Eos # (Auto) 0.2 th/mm3 (0.0-0.4); Eos % (Auto) 1.3 % (0.0-4.0); Hematocrit 46.2 % (35.0-46.0); Hemoglobin 14.9 gm/dL (11.6-15.3); Lymph % (Auto) 20.6 % (9.0-44.0); Mean Corpuscular HGB Conc 32.3 % (32.0-36.0); Mean Corpuscular Volume 95.9 fL (80.0-100.0); Mono # (Auto) 1.1 th/mm3 (0.0-0.9); Mono % (Auto) 7.7 % (0.0-8.0); Neut # (Auto) 10.1 th/mm3 (1.8-7.7); Neut % (Auto) 69.8 % (16.0-70.0); Platelet Count 338 th/mm3 (150-450); Red Blood Count 4.82 mil/mm3 (4.00-5.30); Red Cell Distribution Width 14.1 % (11.6-17.2); White Blood Count 14.5 th/mm3 (4.0-11.0)
--- NOTE | 2018-05-17 15:35 | ED ---
HPI General Chief Complaint: Respiratory Symptoms Stated Complaint: Respiratory Distress Time Seen by Provider: 05/17/18 15:20 History of Present Illness 62-year-old female history of lung post lobectomy on February 2018 here for evaluation of shortness of breath. 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 When arrived in the ER she was using accessory muscles, sweating, unable to speak in full sentences saturating 90% on 100% nonrebreather. She denies any cough, no fever or chills or night sweats. No leg swelling. Related Data Home Medications Medication Instructions Recorded Confirmed Glucosamine Complex-MSM See Label Instructions .ROUTE 05/17/18 05/17/18 .COMPLEX albuterol sulfate [ProAir 2 puff INHALATION Q4-6H PRN 05/17/18 05/17/18 RespiClick] aripiprazole 10 mg PO DAILY 05/17/18 05/17/18 atorvastatin 80 mg PO DAILY 05/17/18 05/17/18 budesonide 0.5 mg INHALATION Q12H 05/17/18 05/17/18 bupropion HCl [Wellbutrin SR] 200 mg PO DAILY 05/17/18 05/17/18 conj estrog-medroxyprogest ciarra 1 tab PO DAILY 05/17/18 05/17/18 [Prempro] escitalopram oxalate 20 mg PO DAILY 05/17/18 05/17/18 escitalopram oxalate [Lexapro] 20 mg/day PO DAILY 05/17/18 05/17/18 formoterol fumarate [Perforomist] 20 mcg INHALATION Q12H 05/17/18 05/17/18 gabapentin 600 mg PO DAILY 05/17/18 05/17/18 levothyroxine [Synthroid] 75 mcg PO WEEKLY 05/17/18 05/17/18 levothyroxine [Synthroid] 150 mcg PO DAILY 05/17/18 05/17/18 metformin 500 mg PO DAILY 05/17/18 05/17/18 modafinil 200 mg PO DAILY 05/17/18 05/17/18 omega-3 acid ethyl esters [Lovaza] 2 cap PO BID 05/17/18 05/17/18 omeprazole 40 mg PO DAILY 05/17/18 05/17/18 phentermine 30 mg PO DAILY 05/17/18 05/17/18 valsartan 80 mg PO DAILY 05/17/18 05/17/18 Allergies Allergy/AdvReac Type Severity Reaction Status Date / Time No Known Allergies Allergy Verified 05/17/18 15:25 Review of Systems Except as stated in HPI: all other systems reviewed are negative [facility] Medical History Medical History COPD (chronic obstructive pulmonary disease) (Acute) Diabetes (Acute) Excessive daytime sleepiness (Acute) GERD (gastroesophageal reflux disease) (Acute) High cholesterol (Acute) Hypertension (Acute) Hypothyroid (Acute) Lung cancer (Acute) Restless leg syndrome (Acute) Sleep apnea (Acute) Surgical History Surgical History Status post lobectomy of lung (Acute) Social History Social History Substance History: No History of Abuse Second Hand Smoke Exposure: No Smoking Status: Former smoker How Often Do You Have a Drink Containing Alcohol: Never Recent Travel in [facility] within the Last 8 Weeks: No Recent Out of Country Travel within the Last 8 Weeks: No Exam Narrative Exam Narrative: GENERAL: Alert oriented 3, sweating, using accessory muscles, unable to speak in full sentences. SKIN: Focused skin assessment warm/dry. HEAD: Atraumatic. Normocephalic. EYES: Pupils equal and round. No scleral icterus. No injection or drainage. ENT: No nasal bleeding or discharge. Mucous membranes pink and moist. NECK: Trachea midline. No JVD. CARDIOVASCULAR: Regular rate and rhythm. No murmur appreciated. RESPIRATORY: Using accessory muscles, clear to auscultation. No wheezing or rhonchi or crackles. GASTROINTESTINAL: Abdomen soft, non-tender, nondistended. Hepatic and splenic margins not palpable. MUSCULOSKELETAL: No obvious deformities. No clubbing. No cyanosis. No edema. NEUROLOGICAL: Awake and alert. No obvious cranial nerve deficits. Motor grossly within normal limits. Normal speech. PSYCHIATRIC: Appropriate mood and affect; insight and judgment normal. Procedures Central Line Placement Right Femoral: Time Out Performed: Yes Patient Placed on Monitor/Pulse Ox: Yes MD Prep: mask, gown and gloves Central Line Prep: Povidone-Iodine 1% Local anesthesia used: lidocaine 1% Ultrasound Used for Placement: Yes Central Line Lumen Inserted: triple Post Procedure: sutured in place, good blood return and all ports aspirated, flushed, capped Course Initial Documented Vital Signs Temperature 97.4 F L 05/17/18 15:20 Pulse Rate 95 H 05/17/18 15:20 Respiratory Rate 28 H 05/17/18 15:20 Blood Pressure 92/52 L 05/17/18 15:20 Pulse Oximetry 88 L 05/17/18 15:20 Last Documented Vital Signs Temperature 97 F L 05/18/18 12:00 Pulse Rate 121 H 05/18/18 13:23 Respiratory Rate 31 H 05/18/18 13:23 Blood Pressure 105/51 L 05/18/18 13:23 Pulse Oximetry 96 05/18/18 13:23 Critical Care Time Critical Care Time: Yes Total Critical Care Time: 35 Attestation: Aggregate critical care time was 35 minutes. Time to perform other separately billable procedures was not included in the critical care time. My time did not include minutes spent treating any other patients simultaneously or on activities that did not directly contribute to the patient's treatment. The services I provided to this patient were to treat and/or prevent clinically significant deterioration that could result in: Hypotension, massive pulmonary embolism, respiratory distress. I provided critical care services requiring my management, as noted below: Chart data review, documentation time, medication orders and management, vital sign assessments/reviewing monitor data, ordering and reviewing lab tests, ordering and interpreting/reviewing x-rays and diagnostic studies, care of the patient and discussion of the patient with the admitting physicians. Medical Decision Making MDM Narrative Medical decision making narrative: 62-year-old female arrival to the ER for acute respiratory distress. Saturation is in the lower 80s even with the nonrebreather. She states her symptoms started suddenly yesterday. ABG shows respiratory acidosis with metabolic acidosis, lactic acid is elevated, patient is hypotensive and mildly tachycardic and tachypneic. Sepsis protocol was followed, d-dimer is markedly elevated and CTA shows massive PE bilaterally with right ventricular strain. Patient is a candidate for TPA and central line was placed and TPA was administered and patient reports mild to moderate improvement in her shortness of breath. CT lung shows right pleural effusion which could be another reason for her SOB, patient is hypotensive and I started dopamine to manage her blood pressure as needed. Elevated troponin which could be due to the RV strain from the PE, patient will be transferred to the main [place] ICU for further follow-up. Patient seems to be stable on BiPAP and no need for intubation for now. Lab Data Result diagrams: 05/18/18 04:06 05/18/18 04:06 Lab Results 05/17/18 05/17/18 05/17/18 Range/Units 15:20 15:20 15:20 CBC w Diff Auto diff final WBC 14.5 H (4.0-11.0) th/mm3 RBC 4.82 (4.00-5.30) mil/mm3 Hgb 14.9 (11.6-15.3) gm/dL Hct 46.2 H (35.0-46.0) % MCV 95.9 (80.0-100.0) fL MCH 31.0 (27.0-34.0) pg MCHC 32.3 (32.0-36.0) % RDW 14.1 (11.6-17.2) % Plt Count 338 (150-450) th/mm3 MPV 7.0 (7.0-11.0) fL Neut % (Auto) 69.8 (16.0-70.0) % Lymph % (Auto) 20.6 (9.0-44.0) % Cascade % (Auto) 7.7 (0.0-8.0) % Eos % (Auto) 1.3 (0.0-4.0) % Baso % (Auto) 0.6 (0.0-2.0) % Neut # (Auto) 10.1 H (1.8-7.7) th/mm3 Lymph # (Auto) 3.0 (1.0-4.8) th/mm3 Cascade # (Auto) 1.1 H (0.0-0.9) th/mm3 Eos # (Auto) 0.2 (0.0-0.4) th/mm3 Baso # (Auto) 0.1 (0.0-0.2) th/mm3 WBC Differential . Differential Comment . PT 10.3 (9.8-11.6) sec INR 1.0 Ratio APTT 26.5 (24.3-30.1) sec D-Dimer Quant (PE/DVT) 6.44 H (0.00-0.50) mg/L FEU Puncture Site Patient Temperature O2 Saturation (90-100) % ABG pH (7.380-7.420) ABG pCO2 (38-42) mmHg ABG pO2 (61-120) mmHg ABG HCO3 (22-26) mmol/L ABG O2 Content (12.0-20.0) Vol % ABG Base Excess (-2-2) mmol/L ABG Methemoglobin (0-2) % Davis Test Hemoglobin (12.0-16.0) G/DL Carboxyhemoglobin (0-4) % O2 Delivery Device Inspired O2 % Critical Value Sodium 146 H (136-145) meq/L Potassium 4.1 (3.5-5.1) meq/L Chloride 111 H (98-107) meq/L Carbon Dioxide 23.0 (21.0-32.0) meq/L Anion Gap 12 (5-15) meq/L BUN 17 (7-18) mg/dL Creatinine 1.30 H (0.50-1.00) mg/dL Estimated GFR 41 L (>89) mL/min POC Glucose (68-110) mg/dl Random Glucose 195 H (74-106) mg/dL Lactic Acid (0.4-2.0) mmol/L Calcium 9.4 (8.5-10.1) mg/dL Phosphorus (2.5-4.9) mg/dL Magnesium 2.0 (1.5-2.5) mg/dL Total Bilirubin 0.4 (0.2-1.0) mg/dL AST 43 H (15-37) U/L ALT 53 (10-53) U/L Alkaline Phosphatase 141 H (45-117) U/L Total Creatine Kinase 79 (26-192) U/L Troponin I 0.91 H* (0.02-0.05) ng/mL B-Natriuretic Peptide (0-100) pg/mL Total Protein 7.7 (6.4-8.2) g/dL Albumin 3.6 (3.4-5.0) g/dL Nasal Screen MRSA (PCR) (Negative) 05/17/18 05/17/18 05/17/18 Range/Units 15:20 15:22 15:39 CBC w Diff WBC (4.0-11.0) th/mm3 RBC (4.00-5.30) mil/mm3 Hgb (11.6-15.3) gm/dL Hct (35.0-46.0) % MCV (80.0-100.0) fL MCH (27.0-34.0) pg MCHC (32.0-36.0) % RDW (11.6-17.2) % Plt Count (150-450) th/mm3 MPV (7.0-11.0) fL Neut % (Auto) (16.0-70.0) % Lymph % (Auto) (9.0-44.0) % Cascade % (Auto) (0.0-8.0) % Eos % (Auto) (0.0-4.0) % Baso % (Auto) (0.0-2.0) % Neut # (Auto) (1.8-7.7) th/mm3 Lymph # (Auto) (1.0-4.8) th/mm3 Cascade # (Auto) (0.0-0.9) th/mm3 Eos # (Auto) (0.0-0.4) th/mm3 Baso # (Auto) (0.0-0.2) th/mm3 WBC Differential Differential Comment PT (9.8-11.6) sec INR Ratio APTT (24.3-30.1) sec D-Dimer Quant (PE/DVT) (0.00-0.50) mg/L FEU Puncture Site Right radial Patient Temperature 98.6 O2 Saturation 96 (90-100) % ABG pH 7.28 L* (7.380-7.420) ABG pCO2 43 H (38-42) mmHg ABG pO2 132 H (61-120) mmHg ABG HCO3 20 L (22-26) mmol/L ABG O2 Content 20.3 H (12.0-20.0) Vol % ABG Base Excess -5.6 L (-2-2) mmol/L ABG Methemoglobin 1.1 (0-2) % Davis Test Present Hemoglobin 14.9 (12.0-16.0) G/DL Carboxyhemoglobin 0.8 (0-4) % O2 Delivery Device Nrb Inspired O2 100 % Critical Value Yes Sodium (136-145) meq/L Potassium (3.5-5.1) meq/L Chloride (98-107) meq/L Carbon Dioxide (21.0-32.0) meq/L Anion Gap (5-15) meq/L BUN (7-18) mg/dL Creatinine (0.50-1.00) mg/dL Estimated GFR (>89) mL/min POC Glucose (68-110) mg/dl Random Glucose (74-106) mg/dL Lactic Acid 3.3 H (0.4-2.0) mmol/L Calcium (8.5-10.1) mg/dL Phosphorus (2.5-4.9) mg/dL Magnesium (1.5-2.5) mg/dL Total Bilirubin (0.2-1.0) mg/dL AST (15-37) U/L ALT (10-53) U/L Alkaline Phosphatase (45-117) U/L Total Creatine Kinase (26-192) U/L Troponin I (0.02-0.05) ng/mL B-Natriuretic Peptide 588 H (0-100) pg/mL Total Protein (6.4-8.2) g/dL Albumin (3.4-5.0) g/dL Nasal Screen MRSA (PCR) (Negative) 05/17/18 05/17/18 05/18/18 Range/Units 20:40 23:54 00:28 CBC w Diff WBC (4.0-11.0) th/mm3 RBC (4.00-5.30) mil/mm3 Hgb (11.6-15.3) gm/dL Hct (35.0-46.0) % MCV (80.0-100.0) fL MCH (27.0-34.0) pg MCHC (32.0-36.0) % RDW (11.6-17.2) % Plt Count (150-450) th/mm3 MPV (7.0-11.0) fL Neut % (Auto) (16.0-70.0) % Lymph % (Auto) (9.0-44.0) % Cascade % (Auto) (0.0-8.0) % Eos % (Auto) (0.0-4.0) % Baso % (Auto) (0.0-2.0) % Neut # (Auto) (1.8-7.7) th/mm3 Lymph # (Auto) (1.0-4.8) th/mm3 Cascade # (Auto) (0.0-0.9) th/mm3 Eos # (Auto) (0.0-0.4) th/mm3 Baso # (Auto) (0.0-0.2) th/mm3 WBC Differential Differential Comment PT (9.8-11.6) sec INR Ratio APTT (24.3-30.1) sec D-Dimer Quant (PE/DVT) (0.00-0.50) mg/L FEU Puncture Site Patient Temperature O2 Saturation (90-100) % ABG pH (7.380-7.420) ABG pCO2 (38-42) mmHg ABG pO2 (61-120) mmHg ABG HCO3 (22-26) mmol/L ABG O2 Content (12.0-20.0) Vol % ABG Base Excess (-2-2) mmol/L ABG Methemoglobin (0-2) % Davis Test Hemoglobin (12.0-16.0) G/DL Carboxyhemoglobin (0-4) % O2 Delivery Device Inspired O2 % Critical Value Sodium (136-145) meq/L Potassium (3.5-5.1) meq/L Chloride (98-107) meq/L Carbon Dioxide (21.0-32.0) meq/L Anion Gap (5-15) meq/L BUN (7-18) mg/dL Creatinine (0.50-1.00) mg/dL Estimated GFR (>89) mL/min POC Glucose 114 H (68-110) mg/dl Random Glucose (74-106) mg/dL Lactic Acid 1.3 (0.4-2.0) mmol/L Calcium (8.5-10.1) mg/dL Phosphorus (2.5-4.9) mg/dL Magnesium (1.5-2.5) mg/dL Total Bilirubin (0.2-1.0) mg/dL AST (15-37) U/L ALT (10-53) U/L Alkaline Phosphatase (45-117) U/L Total Creatine Kinase (26-192) U/L Troponin I (0.02-0.05) ng/mL B-Natriuretic Peptide (0-100) pg/mL Total Protein (6.4-8.2) g/dL Albumin (3.4-5.0) g/dL Nasal Screen MRSA (PCR) Not detected (Negative) 05/18/18 05/18/18 05/18/18 Range/Units 00:55 02:06 04:06 CBC w Diff WBC 7.2 D (4.0-11.0) th/mm3 RBC 3.90 L (4.00-5.30) mil/mm3 Hgb 11.8 D (11.6-15.3) gm/dL Hct 37.0 (35.0-46.0) % MCV 94.8 (80.0-100.0) fL MCH 30.3 (27.0-34.0) pg MCHC 31.9 L (32.0-36.0) % RDW 14.9 (11.6-17.2) % Plt Count 230 D (150-450) th/mm3 MPV 7.2 (7.0-11.0) fL Neut % (Auto) 58.1 (16.0-70.0) % Lymph % (Auto) 28.8 (9.0-44.0) % Cascade % (Auto) 11.8 H (0.0-8.0) % Eos % (Auto) 0.8 (0.0-4.0) % Baso % (Auto) 0.5 (0.0-2.0) % Neut # (Auto) 4.2 (1.8-7.7) th/mm3 Lymph # (Auto) 2.1 (1.0-4.8) th/mm3 Cascade # (Auto) 0.9 (0.0-0.9) th/mm3 Eos # (Auto) 0.1 (0.0-0.4) th/mm3 Baso # (Auto) 0.0 (0.0-0.2) th/mm3 WBC Differential . Differential Comment Auto diff final PT (9.8-11.6) sec INR Ratio APTT Greater than 277.5 H* Greater than 277.5 H* (24.3-30.1) sec D-Dimer Quant (PE/DVT) (0.00-0.50) mg/L FEU Puncture Site Patient Temperature O2 Saturation (90-100) % ABG pH (7.380-7.420) ABG pCO2 (38-42) mmHg ABG pO2 (61-120) mmHg ABG HCO3 (22-26) mmol/L ABG O2 Content (12.0-20.0) Vol % ABG Base Excess (-2-2) mmol/L ABG Methemoglobin (0-2) % Davis Test Hemoglobin (12.0-16.0) G/DL Carboxyhemoglobin (0-4) % O2 Delivery Device Inspired O2 % Critical Value Sodium (136-145) meq/L Potassium (3.5-5.1) meq/L Chloride (98-107) meq/L Carbon Dioxide (21.0-32.0) meq/L Anion Gap (5-15) meq/L BUN (7-18) mg/dL Creatinine (0.50-1.00) mg/dL Estimated GFR (>89) mL/min POC Glucose (68-110) mg/dl Random Glucose (74-106) mg/dL Lactic Acid (0.4-2.0) mmol/L Calcium (8.5-10.1) mg/dL Phosphorus (2.5-4.9) mg/dL Magnesium (1.5-2.5) mg/dL Total Bilirubin (0.2-1.0) mg/dL AST (15-37) U/L ALT (10-53) U/L Alkaline Phosphatase (45-117) U/L Total Creatine Kinase (26-192) U/L Troponin I (0.02-0.05) ng/mL B-Natriuretic Peptide (0-100) pg/mL Total Protein (6.4-8.2) g/dL Albumin (3.4-5.0) g/dL Nasal Screen MRSA (PCR) (Negative) 05/18/18 05/18/18 05/18/18 Range/Units 04:06 04:06 04:06 CBC w Diff WBC (4.0-11.0) th/mm3 RBC (4.00-5.30) mil/mm3 Hgb (11.6-15.3) gm/dL Hct (35.0-46.0) % MCV (80.0-100.0) fL MCH (27.0-34.0) pg MCHC (32.0-36.0) % RDW (11.6-17.2) % Plt Count (150-450) th/mm3 MPV (7.0-11.0) fL Neut % (Auto) (16.0-70.0) % Lymph % (Auto) (9.0-44.0) % Cascade % (Auto) (0.0-8.0) % Eos % (Auto) (0.0-4.0) % Baso % (Auto) (0.0-2.0) % Neut # (Auto) (1.8-7.7) th/mm3 Lymph # (Auto) (1.0-4.8) th/mm3 Cascade # (Auto) (0.0-0.9) th/mm3 Eos # (Auto) (0.0-0.4) th/mm3 Baso # (Auto) (0.0-0.2) th/mm3 WBC Differential Differential Comment PT (9.8-11.6) sec INR Ratio APTT 110.6 H* D (24.3-30.1) sec D-Dimer Quant (PE/DVT) (0.00-0.50) mg/L FEU Puncture Site Patient Temperature O2 Saturation (90-100) % ABG pH (7.380-7.420) ABG pCO2 (38-42) mmHg ABG pO2 (61-120) mmHg ABG HCO3 (22-26) mmol/L ABG O2 Content (12.0-20.0) Vol % ABG Base Excess (-2-2) mmol/L ABG Methemoglobin (0-2) % Davis Test Hemoglobin (12.0-16.0) G/DL Carboxyhemoglobin (0-4) % O2 Delivery Device Inspired O2 % Critical Value Sodium 150 H (136-145) meq/L Potassium 4.1 (3.5-5.1) meq/L Chloride 117 H (98-107) meq/L Carbon Dioxide 24.1 (21.0-32.0) meq/L Anion Gap 9 (5-15) meq/L BUN 17 (7-18) mg/dL Creatinine 1.07 H (0.50-1.00) mg/dL Estimated GFR 52 L (>89) mL/min POC Glucose (68-110) mg/dl Random Glucose 116 H (74-106) mg/dL Lactic Acid 1.3 (0.4-2.0) mmol/L Calcium 8.3 L D (8.5-10.1) mg/dL Phosphorus 2.6 (2.5-4.9) mg/dL Magnesium 1.7 (1.5-2.5) mg/dL Total Bilirubin 0.3 (0.2-1.0) mg/dL AST 39 H (15-37) U/L ALT 51 (10-53) U/L Alkaline Phosphatase 114 (45-117) U/L Total Creatine Kinase (26-192) U/L Troponin I (0.02-0.05) ng/mL B-Natriuretic Peptide (0-100) pg/mL Total Protein 6.1 L D (6.4-8.2) g/dL Albumin 2.8 L D (3.4-5.0) g/dL Nasal Screen MRSA (PCR) (Negative) 05/18/18 Range/Units 06:30 CBC w Diff WBC (4.0-11.0) th/mm3 RBC (4.00-5.30) mil/mm3 Hgb (11.6-15.3) gm/dL Hct (35.0-46.0) % MCV (80.0-100.0) fL MCH (27.0-34.0) pg MCHC (32.0-36.0) % RDW (11.6-17.2) % Plt Count (150-450) th/mm3 MPV (7.0-11.0) fL Neut % (Auto) (16.0-70.0) % Lymph % (Auto) (9.0-44.0) % Cascade % (Auto) (0.0-8.0) % Eos % (Auto) (0.0-4.0) % Baso % (Auto) (0.0-2.0) % Neut # (Auto) (1.8-7.7) th/mm3 Lymph # (Auto) (1.0-4.8) th/mm3 Cascade # (Auto) (0.0-0.9) th/mm3 Eos # (Auto) (0.0-0.4) th/mm3 Baso # (Auto) (0.0-0.2) th/mm3 WBC Differential Differential Comment PT (9.8-11.6) sec INR Ratio APTT 39.4 H D (24.3-30.1) sec D-Dimer Quant (PE/DVT) (0.00-0.50) mg/L FEU Puncture Site Patient Temperature O2 Saturation (90-100) % ABG pH (7.380-7.420) ABG pCO2 (38-42) mmHg ABG pO2 (61-120) mmHg ABG HCO3 (22-26) mmol/L ABG O2 Content (12.0-20.0) Vol % ABG Base Excess (-2-2) mmol/L ABG Methemoglobin (0-2) % Davis Test Hemoglobin (12.0-16.0) G/DL Carboxyhemoglobin (0-4) % O2 Delivery Device Inspired O2 % Critical Value Sodium (136-145) meq/L Potassium (3.5-5.1) meq/L Chloride (98-107) meq/L Carbon Dioxide (21.0-32.0) meq/L Anion Gap (5-15) meq/L BUN (7-18) mg/dL Creatinine (0.50-1.00) mg/dL Estimated GFR (>89) mL/min POC Glucose (68-110) mg/dl Random Glucose (74-106) mg/dL Lactic Acid (0.4-2.0) mmol/L Calcium (8.5-10.1) mg/dL Phosphorus (2.5-4.9) mg/dL Magnesium (1.5-2.5) mg/dL Total Bilirubin (0.2-1.0) mg/dL AST (15-37) U/L ALT (10-53) U/L Alkaline Phosphatase (45-117) U/L Total Creatine Kinase (26-192) U/L Troponin I (0.02-0.05) ng/mL B-Natriuretic Peptide (0-100) pg/mL Total Protein (6.4-8.2) g/dL Albumin (3.4-5.0) g/dL Nasal Screen MRSA (PCR) (Negative) Imaging Data Radiologist's impression: ITS Impressions Chest X-Ray 05/17/18 15:20 CONCLUSION: Cardiomegaly. No acute pulmonary disease. Postsurgical changes as above. Possible left lung nodule. CT scan is recommended for further evaluation if clinically indicated. Chest CTA 05/17/18 16:54 CONCLUSION: 1. Large bilateral pulmonary emboli as described above. 2. Findings have been discussed with Dr. Holliday on today's date. Discharge Plan Discharge Disposition Patient Disposition: 02 Transfer To [facility] [place] Condition Condition: Stable Physicians Team ED Provider: Adria Duran Primary Care Provider: Primary Care Saida Landrum Attending Provider: Brendon Denney Other Providers: Joseph Arias Zafar Status ED Status: Left Department Discharge Information Discharge Date/Time: 05/17/18 20:10
[2018-05-17 15:44] LABS: Chloride 111 meq/L (98-107); Potassium 4.1 meq/L (3.5-5.1); Sodium 146 meq/L (136-145)
[2018-05-17 15:48] LABS: Calcium 9.4 mg/dL (8.5-10.1)
[2018-05-17 15:49] LABS: Albumin 3.6 g/dL (3.4-5.0); Anion Gap 12 meq/L (5-15); Blood Urea Nitrogen 17 mg/dL (7-18); Glucose,Random 195 mg/dL (74-106)
[2018-05-17 15:52] LABS: Alanine Aminotransferase 53 U/L (10-53); Aspartate Aminotransferase 43 U/L (15-37); Glomerular Filtration Rate 41 mL/min (>89)
[2018-05-17 15:54] LABS: Total Protein 7.7 g/dL (6.4-8.2)
[2018-05-17 15:55] LABS: Alkaline Phosphatase 141 U/L (45-117)
[2018-05-17 15:57] LABS: Creatine Kinase 79 U/L (26-192)
[2018-05-17 16:08] LABS: Troponin I 0.91 ng/mL (0.02-0.05)
--- NOTE | 2018-05-17 16:11 | XR ---
EXAM DATE: 05/17/2018 3:57 PM EDT AGE/SEX: 62 years / Female INDICATIONS: Shortness of breath. CLINICAL DATA: This is the patient's initial encounter. Patient reports that signs and symptoms have been present for 1 day and indicates a pain score of 0/10. MEDICAL/SURGICAL HISTORY: None. . Right sided Lumpectomy. COMPARISON: [facility], XR CHEST PA AND LAT, 03/13/2018. . FINDINGS: The cardiac silhouette is enlarged in transverse diameter. The lungs are free of acute parenchymal op acity. No effusions are identified. There are surgical changes in the right lobe with volume loss. Th ere is elevation of the right hemidiaphragm. There is a possible nodule in the left lung measuring [address] scan is recommended for further evaluation if clinically indicated. CONCLUSION: Cardiomegaly. No acute pulmonary disease. Postsurgical changes as above. Possible left lung nodule. CT scan is recommended for further evaluation if clinically indicated. Electronically signed by: Arslan Mckeon MD 05/17/2018 4:10 PM EDT
[2018-05-17] MEDS ORDERED: Sod Chloride 0.9% Inj 1,000 ML IV.SIG ONE ×2 (16:20→16:25)
[2018-05-17 16:21] LABS: Activated Partial Thrombo Time 26.5 sec (24.3-30.1); Prothrombin Time 10.3 sec (9.8-11.6)
[2018-05-17] MEDS ORDERED: Vancomycin Inj 1 GM/200 ML PIGGYBACK IV.SIG ONE (16:25)
[2018-05-17] MEDS ORDERED: Piperacil/Tazo 3.375 GM Premix 50 ML IV.SIG ONE (16:25)
[2018-05-17 16:28] LABS: D-Dimer 6.44 mg/L FEU (0.00-0.50)
[2018-05-17] MEDS ORDERED: Bisacodyl 10 MG Supp RECTAL PRN (17:01)
[2018-05-17] MEDS ORDERED: Enoxaparin Inj 40 MG/0.4 ML Syringe SQ SCH (17:15)
--- NOTE | 2018-05-17 17:46 | CT ---
EXAM DATE: 05/17/2018 5:37 PM EDT AGE/SEX: 62 years / Female INDICATIONS: Shortness of breath, elevated d-dimer. CLINICAL DATA: This is the patient's initial encounter. Patient reports that signs and symptoms have been present for 2 days and indicates a pain score of 0/10. MEDICAL/SURGICAL HISTORY: Chronic obstructive pulmonary disease. Carcinoma, lung. Hypertension. L obectomy. RADIATION DOSE: 21.80 CTDI (mGy) COMPARISON: POI, CT CHEST W/O CONTRAST, 01/16/2018. . TECHNIQUE: Volumetric scanning was performed using a multi-row detector CT scanner during bolus infu emely of 65 ml Omnipaque 350 (iohexol) nonionic water-soluble contrast as a single exam dose. The ngozi a was post processed with a variety of visualization algorithms including full volume maximum intensi ty projection and sliding thin slab reformation. Using automated exposure control and adjustment of t he mA and/or kV according to patient size, radiation dose was kept as low as reasonably achievable to obtain optimal diagnostic quality images. DICOM format image data is available electronically for r eview and comparison. FINDINGS: There are large bilateral central pulmonary emboli. There is an interatrial lipoma present. There is mild reflux of contrast into the hepatic veins. This can be seen with early right heart fail ure. There is no pericardial effusion There is a small right pleural effusion Very minimal peripheral opacity is present in the left lung Portion of the upper abdomen visualized is unremarkable. CONCLUSION: 1. Large bilateral pulmonary emboli as described above. 2. Findings have been discussed with Dr. Holliday on today's date. Electronically signed by: Joseph Bernal MD 05/17/2018 5:45 PM EDT
[2018-05-17] MEDS ORDERED: Alteplase Bolus 9 MG/9 ML Syringe IV.PUSH ONE ×2 (18:06→18:15)
[2018-05-17] MEDS ORDERED: Alteplase Drip 40 MG in Syringe/Bag 1 EACH IV.SIG ONE (18:06)
[2018-05-17] MEDS ORDERED: Heparin 10,000 UNITS/10 ML Vial (for IV use) IV.PUSH STA (18:15)
[2018-05-17] MEDS ORDERED: DOPamine 800 MG/500 ML Premix 800 MG/500 ML PLAST..BAG IV.CONT PRN (18:21)
[2018-05-17] MEDS ORDERED: DOPAMINE IV.CONT PRN (18:45)
[2018-05-17] MEDS: Sod Chloride 0.9% Inj 1,000 ML IV.CONT SCH (19:45)
[2018-05-17] MEDS: Heparin Drip 25,000 UNIT/250 ML BAG IV.CONT PRN (20:03)
--- NOTE | 2018-05-17 20:21 | P.HPCC ---
History of Present Illness Service: Critical Care Medicine Primary Care Physician: No Primary Care Physician Chief Complaint: shortness of breath History of Present Illness: 62yF with history of COPD and lung adenocarcinoma s/p RUL lobectomy in 02/2018 who presented with 1 day history of acute SOB. presented to [facility] [place] with acute hypoxemia and hypotension. CT pulmonary angiogram demonstrates massive pulmonary embolism with evidence of right heart acute dysfunction and reflux of contrast into the hepatic veins suggestive of acute RV dysfunction. due to hemodynamic instability, given iv systemic TPA. placed on BiPAP and emergently transported to [facility] ICU. on my evaluation, patient remains dyspneic on BiPAP. unable to talk in full sentences. ROS limited, but negative for chest pain, fever, chills, cough, n/v/c/d/abd pain. + SOB. Inpatient Certification: I certify that the inpatient services were ordered in accordance with Medicare regulations governing the order. 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 - Medical History Medical History: Medical History (Last Updated 05/17/18 @ 15:42 by Esther Jauregui) COPD (chronic obstructive pulmonary disease) Diabetes Excessive daytime sleepiness GERD (gastroesophageal reflux disease) High cholesterol Hypertension Hypothyroid Lung cancer Restless leg syndrome Sleep apnea - Surgical History Surgical History: Surgical History (Last Updated 05/17/18 @ 15:42 by Esther Jauregui) Status post lobectomy of lung - Tobacco History Smoking Status: Former smoker - Alcohol History How Often Do You Have a Drink Containing Alcohol: Never - Substance Use History Substance History: No History of Abuse - Travel History Recent Travel in the [place] Within the Last 8 Weeks: No Recent Travel Out of the Country Within the Last 8 Weeks: No - Immunization History Tetanus Immunization: Unsure Hx Influenza Vaccine This Season: Yes Medications and Allergies Active Medications: Active Medications Acetaminophen (Tylenol) 650 mg PO Q6H PRN PRN Reason: PAIN 1-10 AND/OR FEVER >101F Al Hydroxide/Mg Hydroxide (Milk Of Magnesia Liq) 30 ml PO Q12H PRN PRN Reason: Mild Constipation Albuterol (Albuterol Neb (Prn)) 2.5 mg NEB Q2HR NEB PRN PRN Reason: SHORTNESS OF BREATH/WHEEZING Albuterol (Duoneb Neb (Jamie)) 1 ampul NEB Q4HR NEB [facility] Last Admin: 05/17/18 19:20 Dose: 1 ampul Bisacodyl (Dulcolax Supp) 10 mg RECTAL DAILY PRN PRN Reason: SEVERE CONSITIPATION Chlorhexidine Gluconate (Chlorhexidine 2% Cloth) 3 pack TOPICAL DAILY@0400 JAMIE Stop: 05/23/18 03:59 Chlorhexidine Gluconate (Chlorhexidine 2% Cloth) 3 pack TOPICAL DAILY@0400 PRN PRN Reason: Extra cloth needed Stop: 05/23/18 03:59 Sodium Chloride (Ns Inj) 1,000 mls @ 84 mls/hr IV.CONT .[id number] [facility] Last Admin: 05/17/18 19:45 Dose: 84 mls/hr Piperacillin/Tazobactam/Dextrose (Zosyn 3.375 Gm Premix) 50 mls @ 100 mls/hr IV.SIG Q6H JAMIE Dopamine HCl/Dextrose (Dopamine 400 Mg/250 Ml Premix) 800 mg in 500 mls @ 15.075 mls/hr IV.CONT TITRATE PRN; Protocol PRN Reason: Per Protocol Heparin Sodium/Dextrose (Heparin/D5w 25,000 U/250 Ml) 25,000 unit in 250 mls @ 0 mls/hr IV.CONT TITRATE PRN; Protocol PRN Reason: Per Protocol Last Admin: 05/17/18 20:03 Dose: 1,800 units/hr, 18 mls/hr Lactulose (Lactulose Liq) 30 ml PO DAILY PRN PRN Reason: SEVERE CONSITIPATION Metoclopramide HCl (Reglan Inj) 10 mg IV.PUSH Q6H PRN; Protocol PRN Reason: NAUSEA OR VOMITING Pantoprazole Sodium (Protonix Inj) 40 mg IV.PUSH DAILY [facility] Senna/Docusate Sodium (Nancy-Colace) 1 tab PO BID [facility] Sennosides (Senokot) 17.2 mg PO Q12H PRN PRN Reason: Moderate Constipation Sodium Chloride (Ns Flush) 2 ml IV.FLUSH BID JAMIE Sodium Chloride (Ns Flush) 2 ml IV.FLUSH PRN PRN PRN Reason: FLUSH AFTER USING IV ACCESS Terbutaline Sulfate (Brethine Inj) 1 mg SQ ONCE PRN PRN Reason: Extravasation Allergies Allergy/AdvReac Type Severity Reaction Status Date / Time No Known Allergies Allergy Verified 05/17/18 15:25 Home Medications Medication Instructions Recorded Confirmed Type Glucosamine Complex-MSM See Label Instructions .ROUTE 05/17/18 05/17/18 History .COMPLEX albuterol sulfate [ProAir 2 puff INHALATION Q4-6H PRN 05/17/18 05/17/18 History RespiClick] aripiprazole 10 mg PO DAILY 05/17/18 05/17/18 History atorvastatin 80 mg PO DAILY 05/17/18 05/17/18 History budesonide 0.5 mg INHALATION Q12H 05/17/18 05/17/18 History bupropion HCl [Wellbutrin SR] 200 mg PO DAILY 05/17/18 05/17/18 History conj estrog-medroxyprogest ciarra 1 tab PO DAILY 05/17/18 05/17/18 History [Prempro] escitalopram oxalate 20 mg PO DAILY 05/17/18 05/17/18 History escitalopram oxalate [Lexapro] 20 mg/day PO DAILY 05/17/18 05/17/18 History formoterol fumarate [Perforomist] 20 mcg INHALATION Q12H 05/17/18 05/17/18 History gabapentin 600 mg PO DAILY 05/17/18 05/17/18 History levothyroxine [Synthroid] 75 mcg PO WEEKLY 05/17/18 05/17/18 History levothyroxine [Synthroid] 150 mcg PO DAILY 05/17/18 05/17/18 History metformin 500 mg PO DAILY 05/17/18 05/17/18 History modafinil 200 mg PO DAILY 05/17/18 05/17/18 History omega-3 acid ethyl esters [Lovaza] 2 cap PO BID 05/17/18 05/17/18 History omeprazole 40 mg PO DAILY 05/17/18 05/17/18 History phentermine 30 mg PO DAILY 05/17/18 05/17/18 History valsartan 80 mg PO DAILY 05/17/18 05/17/18 History Results - Labs CBC & Chem 7: 05/17/18 15:20 05/17/18 15:20 Labs: Short CBC 05/17/18 Range/Units 15:20 WBC 14.5 H (4.0-11.0) th/mm3 Hgb 14.9 (11.6-15.3) gm/dL Hct 46.2 H (35.0-46.0) % Plt Count 338 (150-450) th/mm3 BMP 05/17/18 15:20 Sodium 146 H Potassium 4.1 Chloride 111 H Carbon Dioxide 23.0 BUN 17 Creatinine 1.30 H Calcium 9.4 Cardiac Enzymes 05/17/18 Range/Units 15:20 Total Creatine Kinase 79 (26-192) U/L Troponin I 0.91 H* (0.02-0.05) ng/mL Liver Function 05/17/18 Range/Units 15:20 Total Bilirubin 0.4 (0.2-1.0) mg/dL AST 43 H (15-37) U/L ALT 53 (10-53) U/L Alkaline Phosphatase 141 H (45-117) U/L Albumin 3.6 (3.4-5.0) g/dL - Imaging Impressions Chest X-Ray 05/17/18 15:20 CONCLUSION: Cardiomegaly. No acute pulmonary disease. Postsurgical changes as above. Possible left lung nodule. CT scan is recommended for further evaluation if clinically indicated. Chest CTA 05/17/18 16:54 CONCLUSION: 1. Large bilateral pulmonary emboli as described above. 2. Findings have been discussed with Dr. Holliday on today's date. Exam Vital signs: Vital Signs 05/17/18 15:20 05/17/18 15:25 05/17/18 15:45 Temperature 36.3 C L Pulse Rate 95 H 92 H Respiratory Rate 28 H 32 H Blood Pressure 92/52 L Pulse Oximetry 88 L 99 98 05/17/18 15:55 05/17/18 16:00 05/17/18 16:15 Temperature Pulse Rate 98 H 88 Respiratory Rate 32 H 33 H Blood Pressure Pulse Oximetry 99 98 96 05/17/18 16:30 05/17/18 16:40 05/17/18 17:00 Temperature Pulse Rate 97 H 94 H 108 H Respiratory Rate 28 H 28 H 28 H Blood Pressure 102/79 Pulse Oximetry 97 98 96 05/17/18 17:30 05/17/18 18:00 05/17/18 18:30 Temperature Pulse Rate 96 H 96 H 88 Respiratory Rate 29 H 28 H 26 H Blood Pressure 110/64 Pulse Oximetry 97 98 100 05/17/18 19:29 Temperature Pulse Rate 93 H Respiratory Rate 28 H Blood Pressure Pulse Oximetry 95 Intake & Output 05/17/18 05/17/18 05/18/18 06:59 18:59 06:59 Intake Total 1050 / 1050 Balance 1050 / 1050 Weight 134 kg Intake: IV 1050 / 1050 Zosyn 3.375 GM Premix 50 ML @ 50 / 50 100 mls/hr IV.SIG ONCE ONE Rx#: [id number] NS Inj 1,000 ML @ Wide Open IV. 1000 / 1000 SIG BOLUS ONE Rx#:[id number] Narrative: GENERAL: obese middle-aged female, lying in bed in respiratory distress HEENT: Normocephalic. Atraumatic. Pupils equal, round, reactive, conjugate. Mucous membranes are moist NECK: Trachea is midline. There is no JVD. CHEST: BiPAP in place. fio2 50%. tachypneic. unable to talk in full sentences. equal chest rise. CARDIOVASCULAR: tachycardic rate, regular rhythm. sinus. ABDOMEN: obese, Soft, nontender, nondistended. No guarding. MUSCULOSKELETAL: Pulses 2+. 1+ peripheral edema. NEUROLOGICAL: RASS 0. follows commands. no focal deficits. Caprini VTE Risk Assessment Caprini VTE Risk Assessment: Moderate/High Risk (score >= 2) Caprini Risk Assessment Model: Point Value = 1 Point Value = 2 Point Value = 3 Point Value = 5 Age 41-60 Minor surgery BMI > 25 kg/m2 Swollen legs Varicose veins or History of unexplained or recurrent spontaneous Oral contraceptives or hormone replacement Sepsis (< 1 month) Serious lung disease, including pneumonia (< 1 month) Abnormal pulmonary function Acute myocardial infarction Congestive heart failure (< 1 month) History of inflammatory bowel disease Medical patient at bed rest Age 61-74 Arthroscopic surgery Major open surgery (> 45 min) Laparoscopic surgery (> 45 min) Malignancy Confined to bed (> 72 hours) Immobilizing plaster cast Central venous access Age >= 75 History of VTE Family history of VTE Factor V Leiden Prothrombin [id number] Lupus anticoagulant Anticardiolipin antibodies Elevated serum homocysteine Heparin-induced thrombocytopenia Other congenital or acquired thrombophilia Stroke (< 1 month) Elective arthroplasty Hip, pelvis, or leg fracture Acute spinal cord injury (< 1 month) Prophylaxis Regimen: Total Risk Factor Score Risk Level Prophylaxis Regimen 0-1 Low Early ambulation 2 Moderate Order ONE of the following: *Sequential Compression Device (SCD) *Heparin 5000 units SQ BID 3-4 Higher Order ONE of the following medications: *Heparin 5000 units SQ TID *Enoxaparin/Lovenox 40 mg SQ daily (WT < 150 kg, CrCl > 30 mL/min) *Enoxaparin/Lovenox 30 mg SQ daily (WT < 150 kg, CrCl > 10-29 mL/min) *Enoxaparin/Lovenox 30 mg SQ BID (WT < 150 kg, CrCl > 30 mL/min) AND/OR *Sequential Compression Device (SCD) 5 or more Highest Order ONE of the following medications: *Heparin 5000 units SQ TID (Preferred with Epidurals) *Enoxaparin/Lovenox 40 mg SQ daily (WT < 150 kg, CrCl > 30 mL/min) *Enoxaparin/Lovenox 30 mg SQ daily (WT < 150 kg, CrCl > 10-29 mL/min) *Enoxaparin/Lovenox 30 mg SQ BID (WT < 150 kg, CrCl > 30 mL/min) AND *Sequential Compression Device (SCD) Assessment and Plan - Assessment and Plan Plan: Assessment: 62yF with massive pulmonary embolism with associated right ventricular failure, cardiogenic shock, multiorgan failure, acute hypoxemia. very critically ill and high risk for further decompensation and . s/p emergent systemic TPA administration. Active Problems: Massive pulmonary embolism Cardiogenic Shock Right Ventricular Failure Type II NSTEMI secondary to demand ischemia from PE RV strain Congestive Hepatopathy Acute kidney injury secondary to cardiogenic shock Hypernatremia Hyperglycemia of Critical illness Stress-induced leukocytosis Lactic Acidosis Plan: admit to ICU q1h vitals levophed for goal map > 65 mmHg. may need epinephrine for ongoing cardiogenic shock trend lactates f/u 2d echo: CT evidence of RV failure with reflux of contrast into hepatic veins and RV >> LV cavity trend daily bmp for Cr. adler. close uop monitoring bipap and wean fio2 for goal spo2 > 90%. may need intubation if hypoxia persists or worsens prn nebs mivf to prevent hypovolemia. may need to decrease rate of ivf if becomes hypervolemic. will hold all non-emergent procedures given recent TPA. will likely eventually require invasive lines for monitoring. NPO for now. trend LFTs unlikely to be infectious in etiology. trend cbc. leukocytosis likely reactive from massive PE. continue heparin drip troponins elevated from RV ischemia. no other clinical history to suggest ACS. Critical care time: 54 minutes, exclusive of separately billable procedures.
[2018-05-17] MEDS: Senna/Docusate Sodium 8.6/50 MG Tablet PO SCH (21:16)
[2018-05-17] MEDS: Piperacil/Tazo 3.375 GM Premix 50 ML IV.SIG SCH (23:42)
[2018-05-18] MEDS ORDERED: Chlorhexidine Gluconate 2% 1 Pack (2 Cloths) TOPICAL PRN (04:00)
[2018-05-18] MEDS: Chlorhexidine Gluconate 2% 1 Pack (2 Cloths) TOPICAL SCH (04:15)
[2018-05-18 04:26] LABS: Baso % (Auto) 0.5 % (0.0-2.0); Eos # (Auto) 0.1 th/mm3 (0.0-0.4); Eos % (Auto) 0.8 % (0.0-4.0); Hemoglobin 11.8 gm/dL (11.6-15.3); Lymph # (Auto) 2.1 th/mm3 (1.0-4.8); Lymph % (Auto) 28.8 % (9.0-44.0); Mean Corpuscular HGB Conc 31.9 % (32.0-36.0); Mean Corpuscular Hemoglobin 30.3 pg (27.0-34.0); Mean Corpuscular Volume 94.8 fL (80.0-100.0); Mean Platelet Volume 7.2 fL (7.0-11.0); Mono # (Auto) 0.9 th/mm3 (0.0-0.9); Mono % (Auto) 11.8 % (0.0-8.0); Neut # (Auto) 4.2 th/mm3 (1.8-7.7); Neut % (Auto) 58.1 % (16.0-70.0); Platelet Count 230 th/mm3 (150-450); Red Cell Distribution Width 14.9 % (11.6-17.2); White Blood Count 7.2 th/mm3 (4.0-11.0)
[2018-05-18] MEDS: Piperacil/Tazo 3.375 GM Premix 50 ML IV.SIG SCH ×4 (04:48→21:28)
[2018-05-18 04:57] LABS: Albumin 2.8 g/dL (3.4-5.0); Anion Gap 9 meq/L (5-15); Aspartate Aminotransferase 39 U/L (15-37); Blood Urea Nitrogen 17 mg/dL (7-18); Calcium 8.3 mg/dL (8.5-10.1); Carbon Dioxide 24.1 meq/L (21.0-32.0); Chloride 117 meq/L (98-107); Glomerular Filtration Rate 52 mL/min (>89); Glucose,Random 116 mg/dL (74-106); Magnesium 1.7 mg/dL (1.5-2.5); Potassium 4.1 meq/L (3.5-5.1); Sodium 150 meq/L (136-145)
[2018-05-18 04:58] LABS: Alanine Aminotransferase 51 U/L (10-53); Phosphorus 2.6 mg/dL (2.5-4.9)
[2018-05-18 05:00] LABS: Alkaline Phosphatase 114 U/L (45-117); Total Protein 6.1 g/dL (6.4-8.2)
[2018-05-18] MEDS: Pantoprazole Inj 40 MG Vial IV.PUSH SCH ×2 (08:20→08:34)
[2018-05-18] MEDS: Senna/Docusate Sodium 8.6/50 MG Tablet PO SCH ×2 (08:20→20:04)
[2018-05-18] MEDS: Acetaminophen 325 MG Tablet PO PRN ×2 (09:28→20:03)
[2018-05-18] MEDS: Sod Chloride 0.9% Inj 1,000 ML IV.CONT SCH ×3 (09:30→23:30)
[2018-05-18] MEDS ORDERED: Mag Sulf 1 gm/100 ml Premix 200 ML IV.SIG ONE (10:27)
[2018-05-18] MEDS ORDERED: Amiodarone Inj 150 MG in Dextrose 5% in Water Inj 97 ML IV.SIG ONE ×2 (11:00)
[2018-05-18] MEDS ORDERED: Digoxin Inj 500 MCG/2 ML Ampul IV.PUSH STA (11:05)
--- NOTE | 2018-05-18 11:15 | P.PNCC ---
Subjective Subjective Remarks/Hospital Course: 05/17: 62yF with history of COPD and lung adenocarcinoma s/p RUL lobectomy in 2017 who presented with 1 day history of acute SOB. presented to [facility] with acute hypoxemia and hypotension. CT pulmonary angiogram demonstrates massive pulmonary embolism with evidence of right heart acute dysfunction and reflux of contrast into the hepatic veins suggestive of acute RV dysfunction. due to hemodynamic instability, given iv systemic TPA. placed on BiPAP and emergently transported to [facility] ICU. on my evaluation, patient remains dyspneic on BiPAP. unable to talk in full sentences. ROS limited, but negative for chest pain, fever, chills, cough, n/v/c/d/abd pain. + SOB. 05/18: Tolerating nasal cannula since this morning. No hypotension overnight. Went into A. fib with RVR. Denies any chest pain or worsening shortness of breath. Had some palpitations earlier. Does not appear to be in any acute distress. Objective Vital Signs / I&O: Vital Signs 05/17/18 15:20 05/17/18 15:25 05/17/18 15:45 Temperature 97.4 F L Pulse Rate 95 H 92 H Respiratory Rate 28 H 32 H Blood Pressure 92/52 L Pulse Oximetry 88 L 99 98 05/17/18 15:55 05/17/18 16:00 05/17/18 16:15 Temperature Pulse Rate 98 H 88 Respiratory Rate 32 H 33 H Blood Pressure Pulse Oximetry 99 98 96 05/17/18 16:30 05/17/18 16:40 05/17/18 17:00 Temperature Pulse Rate 97 H 94 H 108 H Respiratory Rate 28 H 28 H 28 H Blood Pressure 102/79 Pulse Oximetry 97 98 96 05/17/18 17:30 05/17/18 18:00 05/17/18 18:30 Temperature Pulse Rate 96 H 96 H 88 Respiratory Rate 29 H 28 H 26 H Blood Pressure 110/64 Pulse Oximetry 97 98 100 05/17/18 19:20 05/17/18 19:25 05/17/18 19:29 Temperature Pulse Rate 98 H 93 H Respiratory Rate 27 H 28 H Blood Pressure Pulse Oximetry 95 95 05/17/18 20:00 05/17/18 20:35 05/17/18 20:38 Temperature Pulse Rate 98 H 92 H 91 H Respiratory Rate 31 H Blood Pressure 131/73 131/77 Pulse Oximetry 94 L 94 L 05/17/18 20:39 05/17/18 21:00 05/17/18 21:30 Temperature Pulse Rate 85 81 Respiratory Rate 29 H 27 H Blood Pressure 135/70 140/63 Pulse Oximetry 94 L 98 99 05/17/18 22:00 05/17/18 22:30 05/17/18 23:00 Temperature Pulse Rate 82 79 78 Respiratory Rate 25 H 19 22 Blood Pressure 145/79 H 128/68 Pulse Oximetry 96 99 99 05/17/18 23:01 05/17/18 23:30 05/18/18 00:00 Temperature Pulse Rate 78 78 76 Respiratory Rate 21 18 19 Blood Pressure 141/63 H 124/70 120/72 Pulse Oximetry 100 99 100 05/18/18 00:30 05/18/18 00:59 05/18/18 01:00 Temperature Pulse Rate 77 79 78 Respiratory Rate 24 21 23 Blood Pressure 116/77 106/68 Pulse Oximetry 99 100 100 05/18/18 01:31 05/18/18 02:00 05/18/18 02:30 Temperature Pulse Rate 80 78 78 Respiratory Rate 24 21 15 Blood Pressure 105/68 112/69 109/56 L Pulse Oximetry 99 97 98 05/18/18 03:00 05/18/18 03:30 05/18/18 04:00 Temperature Pulse Rate 77 76 76 Respiratory Rate 15 18 17 Blood Pressure 108/67 107/71 109/66 Pulse Oximetry 97 98 97 05/18/18 04:20 05/18/18 04:30 05/18/18 05:00 Temperature Pulse Rate 76 75 77 Respiratory Rate 17 15 17 Blood Pressure 118/65 107/71 Pulse Oximetry 100 99 05/18/18 05:30 05/18/18 06:00 05/18/18 06:30 Temperature Pulse Rate 77 77 80 Respiratory Rate 15 20 28 H Blood Pressure 104/67 109/68 112/68 Pulse Oximetry 98 96 99 05/18/18 07:00 05/18/18 07:30 05/18/18 08:00 Temperature 97 F L Pulse Rate 77 76 77 Respiratory Rate 19 16 16 Blood Pressure 127/58 L 110/67 112/70 Pulse Oximetry 97 99 99 05/18/18 08:26 05/18/18 08:30 05/18/18 09:00 Temperature Pulse Rate 79 77 80 Respiratory Rate 18 12 28 H Blood Pressure 107/66 99/69 L Pulse Oximetry 100 92 L 05/18/18 09:33 05/18/18 10:00 05/18/18 10:31 Temperature Pulse Rate 126 H 129 H 126 H Respiratory Rate 14 14 24 Blood Pressure 119/57 L 109/72 109/67 Pulse Oximetry 91 L 91 L 91 L Intake & Output 05/17/18 05/18/18 05/18/18 18:59 06:59 18:59 Intake Total 1050 / 1050 1340 / 1340 1000 / 1000 Output Total 375 / 375 Balance 1050 / 1050 965 / 965 1000 / 1000 Weight 134 kg 136.1 kg Intake: IV 1050 / 1050 1340 / 1340 1000 / 1000 NS Inj 1,000 ML @ 84 mls/hr IV. 1000 / 1000 CONT .[id number] ARABELLA Rx#: [id number] Activase Drip 40 MG In Bag/ 40 / 40 Syringe 1 EACH @ 20 mls/hr IV. SIG ONCE ONE Rx#:[id number] Zosyn 3.375 GM Premix 50 ML @ 50 / 50 100 / 100 100 mls/hr IV.SIG Q6H ARABELLA Rx#: [id number] NS Inj 1,000 ML @ Wide Open IV. 1000 / 1000 1000 / 1000 SIG BOLUS ONE Rx#:[id number] Vancomycin Inj 1 gm In 200 ml @ 200 / 200 200 mls/hr IV.SIG ONCE ONE Rx# :[id number] Output: Urine 375 / 375 Other: Weight On Admission 136.1 kg Result Diagrams: 05/18/18 04:06 05/18/18 04:06 Other Results: Laboratory Results - last 24 hr 05/17/18 05/17/18 05/17/18 15:20 15:20 15:20 CBC w Diff Auto diff final WBC 14.5 H RBC 4.82 Hgb 14.9 Hct 46.2 H MCV 95.9 MCH 31.0 MCHC 32.3 RDW 14.1 Plt Count 338 MPV 7.0 Neut % (Auto) 69.8 Lymph % (Auto) 20.6 Phelps % (Auto) 7.7 Eos % (Auto) 1.3 Baso % (Auto) 0.6 Neut # (Auto) 10.1 H Lymph # (Auto) 3.0 Phelps # (Auto) 1.1 H Eos # (Auto) 0.2 Baso # (Auto) 0.1 WBC Differential . Differential Comment . PT 10.3 INR 1.0 APTT 26.5 D-Dimer Quant (PE/DVT) 6.44 H Puncture Site Patient Temperature O2 Saturation ABG pH ABG pCO2 ABG pO2 ABG HCO3 ABG O2 Content ABG Base Excess ABG Methemoglobin Davis Test Hemoglobin Carboxyhemoglobin O2 Delivery Device Inspired O2 Critical Value Sodium 146 H Potassium 4.1 Chloride 111 H Carbon Dioxide 23.0 Anion Gap 12 BUN 17 Creatinine 1.30 H Estimated GFR 41 L POC Glucose Random Glucose 195 H Lactic Acid Calcium 9.4 Phosphorus Magnesium 2.0 Total Bilirubin 0.4 AST 43 H ALT 53 Alkaline Phosphatase 141 H Total Creatine Kinase 79 Troponin I 0.91 H* B-Natriuretic Peptide Total Protein 7.7 Albumin 3.6 Nasal Screen MRSA (PCR) 05/17/18 05/17/18 05/17/18 15:20 15:22 15:39 CBC w Diff WBC RBC Hgb Hct MCV MCH MCHC RDW Plt Count MPV Neut % (Auto) Lymph % (Auto) Phelps % (Auto) Eos % (Auto) Baso % (Auto) Neut # (Auto) Lymph # (Auto) Phelps # (Auto) Eos # (Auto) Baso # (Auto) WBC Differential Differential Comment PT INR APTT D-Dimer Quant (PE/DVT) Puncture Site Right radial Patient Temperature 98.6 O2 Saturation 96 ABG pH 7.28 L* ABG pCO2 43 H ABG pO2 132 H ABG HCO3 20 L ABG O2 Content 20.3 H ABG Base Excess -5.6 L ABG Methemoglobin 1.1 Davis Test Present Hemoglobin 14.9 Carboxyhemoglobin 0.8 O2 Delivery Device Nrb Inspired O2 100 Critical Value Yes Sodium Potassium Chloride Carbon Dioxide Anion Gap BUN Creatinine Estimated GFR POC Glucose Random Glucose Lactic Acid 3.3 H Calcium Phosphorus Magnesium Total Bilirubin AST ALT Alkaline Phosphatase Total Creatine Kinase Troponin I B-Natriuretic Peptide 588 H Total Protein Albumin Nasal Screen MRSA (PCR) 05/17/18 05/17/18 05/18/18 20:40 23:54 00:28 CBC w Diff WBC RBC Hgb Hct MCV MCH MCHC RDW Plt Count MPV Neut % (Auto) Lymph % (Auto) Phelps % (Auto) Eos % (Auto) Baso % (Auto) Neut # (Auto) Lymph # (Auto) Phelps # (Auto) Eos # (Auto) Baso # (Auto) WBC Differential Differential Comment PT INR APTT D-Dimer Quant (PE/DVT) Puncture Site Patient Temperature O2 Saturation ABG pH ABG pCO2 ABG pO2 ABG HCO3 ABG O2 Content ABG Base Excess ABG Methemoglobin Davis Test Hemoglobin Carboxyhemoglobin O2 Delivery Device Inspired O2 Critical Value Sodium Potassium Chloride Carbon Dioxide Anion Gap BUN Creatinine Estimated GFR POC Glucose 114 H Random Glucose Lactic Acid 1.3 Calcium Phosphorus Magnesium Total Bilirubin AST ALT Alkaline Phosphatase Total Creatine Kinase Troponin I B-Natriuretic Peptide Total Protein Albumin Nasal Screen MRSA (PCR) Not detected 05/18/18 05/18/18 05/18/18 00:55 02:06 04:06 CBC w Diff WBC 7.2 D RBC 3.90 L Hgb 11.8 D Hct 37.0 MCV 94.8 MCH 30.3 MCHC 31.9 L RDW 14.9 Plt Count 230 D MPV 7.2 Neut % (Auto) 58.1 Lymph % (Auto) 28.8 Phelps % (Auto) 11.8 H Eos % (Auto) 0.8 Baso % (Auto) 0.5 Neut # (Auto) 4.2 Lymph # (Auto) 2.1 Phelps # (Auto) 0.9 Eos # (Auto) 0.1 Baso # (Auto) 0.0 WBC Differential . Differential Comment Auto diff final PT INR APTT Greater than 277.5 H* Greater than 277.5 H* D-Dimer Quant (PE/DVT) Puncture Site Patient Temperature O2 Saturation ABG pH ABG pCO2 ABG pO2 ABG HCO3 ABG O2 Content ABG Base Excess ABG Methemoglobin Davis Test Hemoglobin Carboxyhemoglobin O2 Delivery Device Inspired O2 Critical Value Sodium Potassium Chloride Carbon Dioxide Anion Gap BUN Creatinine Estimated GFR POC Glucose Random Glucose Lactic Acid Calcium Phosphorus Magnesium Total Bilirubin AST ALT Alkaline Phosphatase Total Creatine Kinase Troponin I B-Natriuretic Peptide Total Protein Albumin Nasal Screen MRSA (PCR) 05/18/18 05/18/18 05/18/18 04:06 04:06 04:06 CBC w Diff WBC RBC Hgb Hct MCV MCH MCHC RDW Plt Count MPV Neut % (Auto) Lymph % (Auto) Phelps % (Auto) Eos % (Auto) Baso % (Auto) Neut # (Auto) Lymph # (Auto) Phelps # (Auto) Eos # (Auto) Baso # (Auto) WBC Differential Differential Comment PT INR APTT 110.6 H* D D-Dimer Quant (PE/DVT) Puncture Site Patient Temperature O2 Saturation ABG pH ABG pCO2 ABG pO2 ABG HCO3 ABG O2 Content ABG Base Excess ABG Methemoglobin Davis Test Hemoglobin Carboxyhemoglobin O2 Delivery Device Inspired O2 Critical Value Sodium 150 H Potassium 4.1 Chloride 117 H Carbon Dioxide 24.1 Anion Gap 9 BUN 17 Creatinine 1.07 H Estimated GFR 52 L POC Glucose Random Glucose 116 H Lactic Acid 1.3 Calcium 8.3 L D Phosphorus 2.6 Magnesium 1.7 Total Bilirubin 0.3 AST 39 H ALT 51 Alkaline Phosphatase 114 Total Creatine Kinase Troponin I B-Natriuretic Peptide Total Protein 6.1 L D Albumin 2.8 L D Nasal Screen MRSA (PCR) 05/18/18 06:30 CBC w Diff WBC RBC Hgb Hct MCV MCH MCHC RDW Plt Count MPV Neut % (Auto) Lymph % (Auto) Phelps % (Auto) Eos % (Auto) Baso % (Auto) Neut # (Auto) Lymph # (Auto) Phelps # (Auto) Eos # (Auto) Baso # (Auto) WBC Differential Differential Comment PT INR APTT 39.4 H D D-Dimer Quant (PE/DVT) Puncture Site Patient Temperature O2 Saturation ABG pH ABG pCO2 ABG pO2 ABG HCO3 ABG O2 Content ABG Base Excess ABG Methemoglobin Davis Test Hemoglobin Carboxyhemoglobin O2 Delivery Device Inspired O2 Critical Value Sodium Potassium Chloride Carbon Dioxide Anion Gap BUN Creatinine Estimated GFR POC Glucose Random Glucose Lactic Acid Calcium Phosphorus Magnesium Total Bilirubin AST ALT Alkaline Phosphatase Total Creatine Kinase Troponin I B-Natriuretic Peptide Total Protein Albumin Nasal Screen MRSA (PCR) Imaging: ITS Impressions Chest X-Ray 05/17/18 15:20 CONCLUSION: Cardiomegaly. No acute pulmonary disease. Postsurgical changes as above. Possible left lung nodule. CT scan is recommended for further evaluation if clinically indicated. Chest CTA 05/17/18 16:54 CONCLUSION: 1. Large bilateral pulmonary emboli as described above. 2. Findings have been discussed with Dr. Holliday on today's date. Objective Remarks: HEENT/Neuro: No pallor or icterus, tongue moist, LJ, Awake alert oriented 3 , nonfocal grossly, moving all 4 extremities Neck: No JVD Chest/pulmonary: CTA bilaterally Cardiovascular: S1-S2 irregularly irregular no gallop or murmur GI/abdomen: Soft, nontender, bowel sounds present Extremities: Warm bilaterally, no edema Assessment and Plan - Assessment and Plan Plan: Assessment: 62yF with massive pulmonary embolism with associated right ventricular failure, cardiogenic shock, multiorgan failure, acute hypoxemia. very critically ill and high risk for further decompensation and . s/p emergent systemic TPA administration. Active Problems: Massive pulmonary embolism Cardiogenic Shock Right Ventricular Failure Type II NSTEMI secondary to demand ischemia from PE RV strain Congestive Hepatopathy Acute kidney injury secondary to cardiogenic shock Hypernatremia Hyperglycemia of Critical illness Stress-induced leukocytosis Lactic Acidosis Plan: Follow neuro status Status post thrombolysis for massive PE. On full anticoagulation with heparin. Maintaining blood pressure currently. f/u 2d echo: CT evidence of RV failure with reflux of contrast into hepatic veins and RV >> LV cavity Amiodarone loading followed by IV infusion for A. fib with RVR. Digoxin 0.5 mg IV stat. Will use Lopressor if needed for rate control provided blood pressure tolerates. Continue IV fluids Pulmonary Off BiPAP since this morning. Tolerating nasal cannula. Bronchodilators as needed. GI/liver Advance p.o. diet as tolerated trend LFTs ID/ Heme: unlikely to be infectious in etiology. trend cbc. leukocytosis likely reactive from massive PE. continue heparin drip. troponins elevated from RV ischemia. no other clinical history to suggest ACS. Endocrine: Watch for hyperglycemia, SSI for glycemic control if needed Prophylaxis: PPI/SCDs. On full anticoagulation with heparin
[2018-05-18] MEDS: Mag Sulf 1 gm/100 ml Premix 100 ML IV.SIG SCH ×2 (12:24→12:25)
--- NOTE | 2018-05-18 13:21 | ECG ---
Date Performed: 05/17/2018 Time Performed: 16:21:15 PTAGE: 62 years EKG: Sinus rhythm WITH FREQUENT SUPRAVENTRICULAR PREMATURE COMPLEXES MARKED LEFT AXIS DEVIATION INCOMPLETE RIGHT BUNDL E BRANCH BLOCK ABNORMAL ECG Since the PREVIOUS TRACING , no significant change noted PREVIOUS TRACIN05/17/2018 15.45 DOCTOR: Chente Maynard Interpretating Date/Time 05/18/2018 13:16:36
--- NOTE | 2018-05-18 13:21 | ECG ---
Date Performed: 05/17/2018 Time Performed: 15:45:14 PTAGE: 62 years EKG: Sinus rhythm WITH OCCASIONAL SUPRAVENTRICULAR PREMATURE COMPLEXES MARKED LEFT AXIS DEVIATION LOW QRS VOLTAGE IN P RECORDIAL LEADS INCOMPLETE RIGHT BUNDLE BRANCH BLOCK ABNORMAL ECG Since the PREVIOUS TRACING , no significant change noted PREVIOUS TRACIN02/23/2018 11.13 DOCTOR: Chente Maynard Interpretating Date/Time 05/19/2018 07:53:24
--- NOTE | 2018-05-18 16:31 | MB ---
cc: Meron Arias MD DATE: 05/18/2018 HISTORY OF PRESENT ILLNESS: Ms. Reinoso is a 62-year-old white female who presented with shortness of breath yesterday and a CT angiogram revealed massive pulmonary embolism with right heart dysfunction identified on CT. The patient was unstable hemodynamically, was admitted to the critical care team and received IV TPA followed by heparin. Today when I saw her, she was on aerosol mask with oxygen, saturating in the mid to upper 90s, said she felt much better. 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 She was scheduled to see an oncologist, but has not yet done that, but it does appear that this was a curative resection, That full report has not yet been determined based on oncology followup. However, she was feeling quite well despite the fact she does have underlying COPD, until yesterday when she developed shortness of breath. She had had no swelling. There had been no other trauma. She was simply postoperative. She did go into atrial fibrillation last night with RVR, probably as a consequence of this same event. She has had no preceding cough or hemoptysis. No significant chest pain. No significant prior cardiovascular history, just hypertension. PAST MEDICAL HISTORY: Hyperlipidemia, obesity, sleep apnea,followed by Dr. Luu, COPD followed by Dr. Luu, previous breast surgery, but not malignancy and a previous section. ADDITIONAL PAST HISTORY: Diabetes, hypothyroidism. SOCIAL HISTORY: She is a former smoker, but did quit prior to her surgery. No alcohol use. No recent travel. MEDICATIONS: Reviewed in the EMR. REVIEW OF SYSTEMS: Other than that noted above, she has had no GI symptoms. No nausea or vomiting, no abdominal pain or diarrhea. PHYSICAL EXAMINATION: GENERAL: Obese white female, very comfortable at rest. VITAL SIGNS: Heart rates running 110-120, respirations are 22-24, O2 saturations currently 96%, blood pressure 110/60. HEENT: Sclerae are anicteric. NECK: Veins are not distended. CHEST: Somewhat diminished, but clear. No wheezes or rales. No congestion. HEART: Irregular rhythm. No harsh murmur. ABDOMEN: Obese, but soft, nontender. S EXTREMITIES: he has no calf tenderness. No cyanosis or clubbing. DISCUSSION: Ms. Reinoso presents with a massive bilateral pulmonary emboli with right ventricular failure yesterday. She has responded very well to thrombolytics and is currently on IV heparin. Also, has a known history of underlying chronic obstructive pulmonary disease, although that does not seem to be an issue with regard to dyspnea at present. She was placed on aerosolized nebulizer treatments. I would suggest we drop the albuterol just in light of the heart rate, as long as she does well on the Atrovent alone. She is followed by Dr. Luu routinely as an outpatient, which she will do when she leaves here. I explained to her today that she is going to need at least 3-6 months of anticoagulation and followup scanning will be required later to be sure that everything clears. Further diagnostic and/or therapeutic intervention during this hospitalization will depend on her ongoing clinical course, but she is significantly improved today. R. MD JESSIE Veronica/TORIE , 03:59 PM , 04:29 PM
[2018-05-18] MEDS: Heparin Drip 25,000 UNIT/250 ML BAG IV.CONT PRN (17:54)
--- NOTE | 2018-05-18 19:40 | P.CON ---
History of Present Illness Service: Hematology/oncology Consult date: 05/18/18 Primary Care Provider: Saida Primary Care Physician Family Provider: Viki Luu MD Chief Complaint: shortness of breath History of Present Illness: Ms. Reinoso is a very pleasant 62-year-old female with a greater than 70-pack- year history of tobaccoism. 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 Surgery was performed in late February 2018; she was found to have T1c N0 M0; stage I disease. 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 The patient had been gradually recovering from surgery and over the past 2 weeks had been ambulating more with assistance as well as ambulating in the pool. She reports about a month after surgery developing symptoms of difficulty breathing and cough, she was seen by her product development actuary and was assessed to have a pneumonia, she was treated with antibiotics and corticosteroids and made noticed resolution of the symptoms. 2 days ago; on the day of presentation the patient reports developing difficulty breathing "out of nowhere ". She tells me she had difficulty taking several steps and was also short of breath at rest. She scheduled an appointment to meet with her product development actuary Dr. Kelley, upon presentation to his office she was found to be tachypneic and O2 sats were noted to be less than 80%. She was sent directly to [facility] emergency department on 09/2018 via EMS. Patient underwent a CT angiogram of the thorax in the emergency department and was noted to have a large volume pulmonary embolus involving the left pulmonary artery circulation as well as smaller emboli involving the right pulmonary artery circulation. Echocardiogram revealed right heart strain, she was assessed to have a massive pulmonary embolus and was treated with thrombolytic therapy; TPA. After undergoing the procedure she has been initiated on heparin. Hematology service been asked to see her for further recommendations regarding long-term anticoagulation. Review of Systems Constitutional: Denies anorexia, Denies body ache(s), Denies chills, Denies daytime sleepiness, Denies excessive sweating, Denies fatigue, Denies fever(s), Denies headache(s), Denies increased appetite, Denies lack of energy, Denies malaise, Denies night sweats, Denies weakness, Denies weight gain, Denies weight loss, Denies other Eyes: Denies blind spots, Denies blurry vision, Denies bulging eyes, Denies change in vision, Denies double vision, Denies discharge, Denies dry eyes, Denies floaters, Denies irritation, Denies itchy eyes, Denies loss of vision, Denies pain, Denies requires corrective lenses, Denies sensitivity to light, Denies other Ears, Nose, Mouth, and Throat: Denies abnormal hearing, Denies bleeding gums, Denies bad breath, Denies change in voice, Denies dental pain, Denies difficulty swallowing, Denies dizziness, Denies dry mouth, Denies ear discharge , Denies ear pain, Denies facial pain, Denies headache(s), Denies hearing loss, Denies hoarseness, Denies lip swelling, Denies nosebleed, Denies mouth lesions, Denies mouth pain, Denies nasal congestion, Denies nasal discharge, Denies nasal obstruction, Denies nasal trauma, Denies neck lump, Denies neck pain, Denies nose pain, Denies pain with swallowing, Denies poor balance, Denies post nasal drip, Denies ringing in the ears, Denies sinus pain, Denies sinus pressure , Denies sore throat, Denies throat swelling, Denies tongue swelling, Denies other Cardiovascular: Reports fast heart rate, Reports shortness of breath, Reports shortness of breath with activity, Denies chest pain, Denies chest pain at rest , Denies chest pain with activity, Denies excessive sweating, Denies fainting, Denies foot swelling, Denies generalized swelling, Denies irregular heart rhythm , Denies leg pain with activity, Denies leg sores, Denies leg swelling, Denies lightheadedness, Denies radiating jaw, neck or arm pain, Denies rapid, pounding , or irregular heartbeat, Denies shortness of breath when lying down, Denies shortness of breath causing sudden awakening, Denies slow heart rate, Denies other Respiratory: Reports shortness of breath, Reports shortness of breath with activity, Denies change in phlegm color, Denies chest congestion, Denies cough, Denies coughing up blood, Denies excessive phlegm production, Denies pain on inspiration, Denies pain with cough, Denies snoring, Denies stridor, Denies wheezing, Denies other Gastrointestinal: Denies abdominal pain, Denies belching, Denies black, tarry stools, Denies bloating, Denies bright, red blood in stools, Denies change in bowel habits, Denies constant urge to pass stool, Denies change in stools, Denies coffee ground vomit, Denies constipation, Denies cramping, Denies difficulty swallowing, Denies excessive passing of gas, Denies feeling full early, Denies heartburn, Denies incontinent of stools, Denies loose stools, Denies nausea, Denies pain with swallowing, Denies vomiting, Denies vomiting blood, Denies other Genitourinary: Denies abnormal periods, Denies abnormal vaginal bleeding, Denies absent period, Denies bleeding between periods, Denies blood in urine, Denies difficulty starting urination, Denies difficulty urinating, Denies dribbling after urination, Denies frequent nighttime urination, Denies genital itching, Denies genital lesions, Denies heavy periods, Denies hot flashes, Denies light periods, Denies nipple discharge, Denies painful intercourse, Denies painful periods, Denies painful urination, Denies pelvic pain, Denies prolapse symptoms, Denies sexual problems, Denies side pain, Denies urinary incontinence, Denies urinary urgency, Denies vaginal discharge, Denies vaginal dryness, Denies vaginal odor, Denies vaginal itching, Denies other Musculoskeletal: Reports joint pain, Denies abnormal walking, Denies back pain, Denies body aches, Denies decreased muscle mass, Denies deformity, Denies joint swelling, Denies limited joint movement, Denies loss of height, Denies muscle cramps, Denies muscle weakness, Denies neck pain, Denies numbness, Denies radiating pain into limb, Denies stiffness, Denies tingling, Denies other Skin/Breast: Denies acne, Denies bleeding lesions, Denies boil, Denies breast swelling, Denies breast skin changes, Denies breast pain, Denies breast lump, Denies change in breast shape, Denies change in hair, Denies change in skin color, Denies changing lesions, Denies dry skin, Denies excessive hair growth, Denies hair loss, Denies itching, Denies lesions, Denies nail changes, Denies new lesions, Denies nipple discharge, Denies non-healing lesions, Denies redness , Denies sensitivity to light, Denies rash, Denies skin pain, Denies skin ulcer , Denies sores, Denies stretch britt, Denies unusual bruising, Denies wounds, Denies yellowing of the skin, Denies other Neurologic: Denies abnormal hearing, Denies abnormal movements, Denies abnormal speech, Denies tremor(s), Denies unsteadiness, Denies weakness Psychiatric: Reports anxiety, Denies abnormal sleep pattern, Denies behavioral changes, Denies change in appetite Comments: Has history of hypothyroidism Hematologic/Lymphatic: Denies easy bleeding, Denies easy bruising, Denies enlarged lymph nodes PMFSH - History 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, 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 - Medical History Medical History: Medical History (Last Updated 05/18/18 @ 19:32 by Ken Valladares MD) Adenosquamous carcinoma of right lung COPD (chronic obstructive pulmonary disease) Chronic obstructive pulmonary disease (COPD) Diabetes Excessive daytime sleepiness GERD (gastroesophageal reflux disease) HX: benign breast biopsy High cholesterol Hypertension Hypothyroid Lung cancer Morbid obesity Obstructive sleep apnea Restless leg syndrome Sleep apnea Tobacco abuse, in remission - Surgical History Surgical History: Surgical History (Last Updated 05/18/18 @ 19:32 by Ken Valladares MD) H/O section H/O left knee surgery History of cholecystectomy Status post lobectomy of lung - Family History Family History: Family History (Last Updated 05/18/18 @ 19:36 by Ken Valladares MD) Father Carcinoma, lung Mother Carcinoma, lung - Tobacco History Second Hand Smoke Exposure: No Tobacco Use In Past 30 Days: No Smoking Status: Heavy tobacco smoker (Patient smoked 2 packs a day on average for 36 years, quit 10 years ago) - Alcohol History How Often Do You Have a Drink Containing Alcohol: Never - Substance Use History Substance History: No History of Abuse - Travel History Recent Travel in the [facility] Within the Last 8 Weeks: No Recent Travel Out of the Country Within the Last 8 Weeks: No - Immunization History Tetanus Immunization: Unsure Hx Influenza Vaccine This Season: Yes Medications and Allergies Active Medications: Active Medications Acetaminophen (Tylenol) 650 mg PO Q6H PRN PRN Reason: PAIN 1-10 AND/OR FEVER >101F Last Admin: 05/18/18 09:28 Dose: 650 mg Al Hydroxide/Mg Hydroxide (Milk Of Magnesia Liq) 30 ml PO Q12H PRN PRN Reason: Mild Constipation Albuterol (Albuterol Neb (Prn)) 2.5 mg NEB Q2HR NEB PRN PRN Reason: SHORTNESS OF BREATH/WHEEZING Bisacodyl (Dulcolax Supp) 10 mg RECTAL DAILY PRN PRN Reason: SEVERE CONSITIPATION Chlorhexidine Gluconate (Chlorhexidine 2% Cloth) 3 pack TOPICAL DAILY@0400 ARABELLA Stop: 05/23/18 03:59 Last Admin: 05/18/18 04:15 Dose: 3 pack Chlorhexidine Gluconate (Chlorhexidine 2% Cloth) 3 pack TOPICAL DAILY@0400 PRN PRN Reason: Extra cloth needed Stop: 05/23/18 03:59 Sodium Chloride (Ns Inj) 1,000 mls @ 84 mls/hr IV.CONT .[id number] [facility] Last Admin: 05/18/18 17:53 Dose: Not Given Piperacillin/Tazobactam/Dextrose (Zosyn 3.375 Gm Premix) 50 mls @ 100 mls/hr IV.SIG Q6H [facility] Last Infusion: 05/18/18 17:15 Dose: Infused Dopamine HCl/Dextrose (Dopamine 400 Mg/250 Ml Premix) 800 mg in 500 mls @ 15.075 mls/hr IV.CONT TITRATE PRN; Protocol PRN Reason: Per Protocol Heparin Sodium/Dextrose (Heparin/D5w 25,000 U/250 Ml) 25,000 unit in 250 mls @ 0 mls/hr IV.CONT TITRATE PRN; Protocol PRN Reason: Per Protocol Last Admin: 05/18/18 17:54 Dose: 1,400 units/hr, 14 mls/hr Amiodarone HCl 450 mg/ (Dextrose) 250 mls @ 33.33 mls/hr IV.CONT .Q7H31M [facility]; Protocol Last Admin: 05/18/18 17:52 Dose: 0.5 mg/min, 16.66 mls/hr Ipratropium [place] (Atrovent Neb) 0.5 mg NEB Q4HR NEB ARABELLA Lactulose (Lactulose Liq) 30 ml PO DAILY PRN PRN Reason: SEVERE CONSITIPATION Metoclopramide HCl (Reglan Inj) 10 mg IV.PUSH Q6H PRN; Protocol PRN Reason: NAUSEA OR VOMITING Pantoprazole Sodium (Protonix Inj) 40 mg IV.PUSH DAILY [facility] Last Admin: 05/18/18 08:34 Dose: Not Given Senna/Docusate Sodium (Nancy-Colace) 1 tab PO BID [facility] Last Admin: 05/18/18 08:20 Dose: Not Given Sennosides (Senokot) 17.2 mg PO Q12H PRN PRN Reason: Moderate Constipation Sodium Chloride (Ns Flush) 2 ml IV.FLUSH BID [facility] Last Admin: 05/18/18 08:21 Dose: 2 ml Sodium Chloride (Ns Flush) 2 ml IV.FLUSH PRN PRN PRN Reason: FLUSH AFTER USING IV ACCESS Terbutaline Sulfate (Brethine Inj) 1 mg SQ ONCE PRN PRN Reason: Extravasation Allergies Allergy/AdvReac Type Severity Reaction Status Date / Time No Known Allergies Allergy Verified 05/17/18 15:25 Home Medications Medication Instructions Recorded Confirmed Type Glucosamine Complex-MSM See Label Instructions .ROUTE 05/17/18 05/17/18 History .COMPLEX albuterol sulfate [ProAir 2 puff INHALATION Q4-6H PRN 05/17/18 05/17/18 History RespiClick] aripiprazole 10 mg PO DAILY 05/17/18 05/17/18 History atorvastatin 80 mg PO DAILY 05/17/18 05/17/18 History budesonide 0.5 mg INHALATION Q12H 05/17/18 05/17/18 History bupropion HCl [Wellbutrin SR] 200 mg PO DAILY 05/17/18 05/17/18 History conj estrog-medroxyprogest ciarra 1 tab PO DAILY 05/17/18 05/17/18 History [Prempro] escitalopram oxalate 20 mg PO DAILY 05/17/18 05/17/18 History escitalopram oxalate [Lexapro] 20 mg/day PO DAILY 05/17/18 05/17/18 History formoterol fumarate [Perforomist] 20 mcg INHALATION Q12H 05/17/18 05/17/18 History gabapentin 600 mg PO DAILY 05/17/18 05/17/18 History levothyroxine [Synthroid] 75 mcg PO WEEKLY 05/17/18 05/17/18 History levothyroxine [Synthroid] 150 mcg PO DAILY 05/17/18 05/17/18 History metformin 500 mg PO DAILY 05/17/18 05/17/18 History modafinil 200 mg PO DAILY 05/17/18 05/17/18 History omega-3 acid ethyl esters [Lovaza] 2 cap PO BID 05/17/18 05/17/18 History omeprazole 40 mg PO DAILY 05/17/18 05/17/18 History phentermine 30 mg PO DAILY 05/17/18 05/17/18 History valsartan 80 mg PO DAILY 05/17/18 05/17/18 History Physical Exam Vital signs: Vital Signs 05/17/18 19:25 05/17/18 19:29 05/17/18 20:00 Temperature Pulse Rate 98 H 93 H 98 H Respiratory Rate 27 H 28 H Blood Pressure 131/73 Pulse Oximetry 95 94 L 05/17/18 20:35 05/17/18 20:38 05/17/18 20:39 Temperature Pulse Rate 92 H 91 H Respiratory Rate 31 H Blood Pressure 131/77 Pulse Oximetry 94 L 94 L 05/17/18 21:00 05/17/18 21:30 05/17/18 22:00 Temperature Pulse Rate 85 81 82 Respiratory Rate 29 H 27 H 25 H Blood Pressure 135/70 140/63 145/79 H Pulse Oximetry 98 99 96 05/17/18 22:30 05/17/18 23:00 05/17/18 23:01 Temperature Pulse Rate 79 78 78 Respiratory Rate 19 22 21 Blood Pressure 128/68 141/63 H Pulse Oximetry 99 99 100 05/17/18 23:30 05/18/18 00:00 05/18/18 00:30 Temperature Pulse Rate 78 76 77 Respiratory Rate 18 19 24 Blood Pressure 124/70 120/72 116/77 Pulse Oximetry 99 100 99 05/18/18 00:59 05/18/18 01:00 05/18/18 01:31 Temperature Pulse Rate 79 78 80 Respiratory Rate 21 23 24 Blood Pressure 106/68 105/68 Pulse Oximetry 100 100 99 05/18/18 02:00 05/18/18 02:30 05/18/18 03:00 Temperature Pulse Rate 78 78 77 Respiratory Rate 21 15 15 Blood Pressure 112/69 109/56 L 108/67 Pulse Oximetry 97 98 97 05/18/18 03:30 05/18/18 04:00 05/18/18 04:20 Temperature Pulse Rate 76 76 76 Respiratory Rate 18 17 17 Blood Pressure 107/71 109/66 Pulse Oximetry 98 97 05/18/18 04:30 05/18/18 05:00 05/18/18 05:30 Temperature Pulse Rate 75 77 77 Respiratory Rate 15 17 15 Blood Pressure 118/65 107/71 104/67 Pulse Oximetry 100 99 98 05/18/18 06:00 05/18/18 06:30 05/18/18 07:00 Temperature Pulse Rate 77 80 77 Respiratory Rate 20 28 H 19 Blood Pressure 109/68 112/68 127/58 L Pulse Oximetry 96 99 97 05/18/18 07:30 05/18/18 08:00 05/18/18 08:26 Temperature 97 F L Pulse Rate 76 77 79 Respiratory Rate 16 16 18 Blood Pressure 110/67 112/70 Pulse Oximetry 99 99 05/18/18 08:30 05/18/18 09:00 05/18/18 09:33 Temperature Pulse Rate 77 80 126 H Respiratory Rate 12 28 H 14 Blood Pressure 107/66 99/69 L 119/57 L Pulse Oximetry 100 92 L 91 L 05/18/18 10:00 05/18/18 10:31 05/18/18 11:00 Temperature Pulse Rate 129 H 126 H 159 H Respiratory Rate 14 24 32 H Blood Pressure 109/72 109/67 116/72 Pulse Oximetry 91 L 91 L 85 L 05/18/18 12:00 05/18/18 12:07 05/18/18 12:42 Temperature 97 F L Pulse Rate 131 H 137 H 140 H Respiratory Rate 28 H 29 H 35 H Blood Pressure 113/55 L 95/50 L Pulse Oximetry 94 L 95 93 L 05/18/18 13:00 05/18/18 13:23 05/18/18 14:00 Temperature Pulse Rate 122 H 121 H 118 H Respiratory Rate 31 H 31 H 26 H Blood Pressure 105/51 L Pulse Oximetry 94 L 96 96 05/18/18 14:38 05/18/18 15:00 05/18/18 15:53 Temperature Pulse Rate 117 H 116 H 119 H Respiratory Rate 34 H 23 23 Blood Pressure 128/65 146/69 H Pulse Oximetry 95 95 05/18/18 16:00 05/18/18 17:00 05/18/18 18:00 Temperature 98.1 F Pulse Rate 117 H 116 H 121 H Respiratory Rate 28 H 56 H 60 H Blood Pressure 123/61 132/65 Pulse Oximetry 91 L 93 L 92 L Intake & Output 05/18/18 05/18/18 05/19/18 06:59 18:59 06:59 Intake Total 1340 / 1340 2980 / 2980 Output Total 375 / 375 300 / 300 Balance 965 / 965 2680 / 2680 Weight 136.1 kg Intake: IV 1340 / 1340 1900 / 1900 Cordarone Inj 450 MG In D5W Inj 250 / 250 241 ML @ 1 MG/MIN 33.33 mls/hr IV.CONT .Q7H31M [facility] Rx#: [id number] Heparin/D5W 25,000 U/250 mL 25, 250 / 250 000 unit In 250 ml @ Per Protocol IV.CONT TITRATE PRN Rx #:[id number] NS Inj 1,000 ML @ 84 mls/hr IV. 1000 / 1000 CONT .[id number] [facility] Rx#: [id number] Activase Drip 40 MG In Bag/ 40 / 40 Syringe 1 EACH @ 20 mls/hr IV. SIG ONCE ONE Rx#:[id number] Cordarone Inj 150 MG In D5W Inj 100 / 100 97 ML @ 600 mls/hr IV.SIG ONCE ONE Rx#:[id number] Magnesium Sulfate 1 gm/D5W 100 200 / 200 ml Premix 200 ML @ 0 mls/hr IV. SIG .STK-MED ONE Rx#:[id number] Zosyn 3.375 GM Premix 50 ML @ 100 / 100 100 / 100 100 mls/hr IV.SIG Q6H [facility] Rx#: [id number] NS Inj 1,000 ML @ Wide Open IV. 1000 / 1000 SIG BOLUS ONE Rx#:[id number] Vancomycin Inj 1 gm In 200 ml @ 200 / 200 200 mls/hr IV.SIG ONCE ONE Rx# :[id number] Oral 1080 / 1080 Output: Urine 375 / 375 300 / 300 Other: Weight On Admission 136.1 kg - Constitutional mild distress, morbidly obese - Routine HEENT Exam Head: Present: normocephalic, atraumatic. Absent: cushingoid faces Eye: Present: EOMI, PERRL, normal accommodation, conjunctivae pink. Absent: conjunctival icterus, scleral injection ENT: Present: mucous membranes moist - Routine Neck Exam Present: supple, full ROM. Absent: JVD, carotid bruit, lymphadenopathy, thyromegaly - Routine Respiratory Exam Present: prolonged expiratory phase, respiratory distress, distant breath sounds. Absent: accessory muscle use, patient mechanically ventilated, rhonchi , stridor, wheezes, crackles - Routine Cardiovascular Exam Present: S1, S2, tachycardia. Absent: murmur, gallop, rubs, S3, S4 - Routine Abdominal Exam Present: soft, normoactive bowel sounds. Absent: tenderness, distended, rebound , guarding, firm, rigid, organomegaly - Routine Extremities Exam Present: full ROM, pulses intact, normal capillary refill. Absent: cyanosis, clubbing, edema, calf tenderness, palpable cord - Routine Skin Exam Present: intact - Routine Neurological Exam Present: alert, oriented X3, CN II-XII intact. Absent: sensory deficit, motor deficit - Detailed Neurological Exam: Coma Scale Eye Opening: Spontaneous Assessment and Plan - Assessment (1) Acute massive pulmonary embolism Code(s): I26.99 - Other pulmonary embolism without acute cor pulmonale Status : Acute Plan: Massive pulmonary embolism associated with right heart dysfunction. Patient was appropriate treated with thrombolytic therapy; chemical thrombolysis with TPA infusion on the day of admission. Now on heparin infusion. Clinically she feels better with decreased dyspnea and improved O2 saturations. Pulmonary embolism was probably provoked by recent surgery and postop immobility. Additional risk factors the patient include morbid obesity. She will require therapeutic anticoagulation at the time of discharge and may be transitioned to one of the novel oral factor Xa inhibitor such as Xarelto or Eliquis. I do not think a birthmark workup is required at this time. (2) Adenosquamous carcinoma of lung Code(s): C34.90 - Malignant neoplasm of unspecified part of unspecified bronchus or lung Status: Acute Plan: Pathologic stage: T1c N0 M0; stage I disease. Status post surgical resection without evidence of residual disease. She is a candidate for surveillance in the postoperative setting. Chemotherapy in the adjuvant setting is not indicated. - Plan Massive pulmonary embolism: 1. Continue therapeutic anticoagulation with heparin, the aim would be to maintain a PTT level of close to twice the upper limit of normal. 2. 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 She will be candidate for observation/surveillance going forward. Hematology service to follow along with you. Arrangements for outpatient follow -up will be made as well. (2) Adenosquamous carcinoma of lung Qualifiers: Laterality: right Qualified Code(s): C34.91 - Malignant neoplasm of unspecified part of right bronchus or lung
[2018-05-19] MEDS: Piperacil/Tazo 3.375 GM Premix 50 ML IV.SIG SCH ×4 (04:29→21:43)
[2018-05-19] MEDS: Chlorhexidine Gluconate 2% 1 Pack (2 Cloths) TOPICAL SCH (05:38)
[2018-05-19 06:00] LABS: Hematocrit 36.8 % (35.0-46.0); Mean Corpuscular HGB Conc 32.7 % (32.0-36.0); Mean Corpuscular Hemoglobin 31.2 pg (27.0-34.0); Mean Corpuscular Volume 95.6 fL (80.0-100.0); Mean Platelet Volume 7.4 fL (7.0-11.0); Platelet Count 246 th/mm3 (150-450); Red Blood Count 3.85 mil/mm3 (4.00-5.30); White Blood Count 8.5 th/mm3 (4.0-11.0)
[2018-05-19] MEDS ORDERED: Labetalol HCl Inj 100 MG/20 ML Vial ONE (09:12)
[2018-05-19] MEDS: Acetaminophen 325 MG Tablet PO PRN (09:18)
--- NOTE | 2018-05-19 09:46 | P.PNCC ---
Subjective Subjective Remarks/Hospital Course: 05/17: 62yF with history of COPD and lung adenocarcinoma s/p RUL lobectomy in 2017 who presented with 1 day history of acute SOB. presented to [facility] [facility] with acute hypoxemia and hypotension. CT pulmonary angiogram demonstrates massive pulmonary embolism with evidence of right heart acute dysfunction and reflux of contrast into the hepatic veins suggestive of acute RV dysfunction. due to hemodynamic instability, given iv systemic TPA. placed on BiPAP and emergently transported to [facility] ICU. on my evaluation, patient remains dyspneic on BiPAP. unable to talk in full sentences. ROS limited, but negative for chest pain, fever, chills, cough, n/v/c/d/abd pain. + SOB. 05/18: Tolerating nasal cannula since this morning. No hypotension overnight. Went into A. fib with RVR. Denies any chest pain or worsening shortness of breath. Had some palpitations earlier. Does not appear to be in any acute distress. 05/19: Complaining of shortness of breath and headache. Blood pressure 170 systolic currently. Ordered labetalol IV. Also initiating IV Solu-Medrol to see if her breathing response. Remains on nasal cannula. Objective Vital Signs / I&O: Vital Signs 05/18/18 10:00 05/18/18 10:31 05/18/18 11:00 Temperature Pulse Rate 129 H 126 H 159 H Respiratory Rate 14 24 32 H Blood Pressure 109/72 109/67 116/72 Pulse Oximetry 91 L 91 L 85 L 05/18/18 12:00 05/18/18 12:07 05/18/18 12:42 Temperature 97 F L Pulse Rate 131 H 137 H 140 H Respiratory Rate 28 H 29 H 35 H Blood Pressure 113/55 L 95/50 L Pulse Oximetry 94 L 95 93 L 05/18/18 13:00 05/18/18 13:23 05/18/18 14:00 Temperature Pulse Rate 122 H 121 H 118 H Respiratory Rate 31 H 31 H 26 H Blood Pressure 105/51 L Pulse Oximetry 94 L 96 96 05/18/18 14:38 05/18/18 15:00 05/18/18 15:53 Temperature Pulse Rate 117 H 116 H 119 H Respiratory Rate 34 H 23 23 Blood Pressure 128/65 146/69 H Pulse Oximetry 95 95 05/18/18 16:00 05/18/18 17:00 05/18/18 18:00 Temperature 98.1 F Pulse Rate 117 H 116 H 121 H Respiratory Rate 28 H 56 H 60 H Blood Pressure 123/61 132/65 Pulse Oximetry 91 L 93 L 92 L 05/18/18 19:00 05/18/18 19:47 05/18/18 20:00 Temperature 99.0 F Pulse Rate 127 H 108 H 122 H Respiratory Rate 64 H 18 61 H Blood Pressure 140/80 136/82 Pulse Oximetry 92 L 93 L 93 L 05/18/18 21:00 05/18/18 22:00 05/18/18 23:00 Temperature Pulse Rate 78 80 79 Respiratory Rate 25 H 27 H 24 Blood Pressure 148/71 H 146/73 H 133/72 Pulse Oximetry 95 95 93 L 05/19/18 00:00 05/19/18 00:15 05/19/18 01:00 Temperature 99.2 F Pulse Rate 79 78 81 Respiratory Rate 24 22 26 H Blood Pressure 143/76 H 148/70 H Pulse Oximetry 92 L 91 L 05/19/18 02:00 05/19/18 03:00 05/19/18 04:00 Temperature 98.0 F Pulse Rate 80 78 80 Respiratory Rate 26 H 25 H 26 H Blood Pressure 152/73 H 164/75 H 165/77 H Pulse Oximetry 91 L 94 L 92 L 05/19/18 04:17 05/19/18 05:00 05/19/18 06:00 Temperature Pulse Rate 85 84 80 Respiratory Rate 24 31 H 27 H Blood Pressure 167/74 H 164/77 H Pulse Oximetry 91 L 93 L 05/19/18 07:00 05/19/18 07:05 05/19/18 07:06 Temperature Pulse Rate 80 79 Respiratory Rate 25 H 24 Blood Pressure 173/84 H 177/83 H Pulse Oximetry 94 L 95 Intake & Output 05/18/18 05/19/18 05/19/18 18:59 06:59 18:59 Intake Total 2980 / 2980 1820 / 1820 Output Total 300 / 300 275 / 275 Balance 2680 / 2680 1545 / 1545 Weight 139.5 kg Intake: IV 1900 / 1900 1460 / 1460 Cordarone Inj 450 MG In D5W Inj 250 / 250 410 / 410 241 ML @ 1 MG/MIN 33.33 mls/hr IV.CONT .Q7H31M [facility] Rx#: [id number] Heparin/D5W 25,000 U/250 mL 25, 250 / 250 000 unit In 250 ml @ Per Protocol IV.CONT TITRATE PRN Rx #:[id number] NS Inj 1,000 ML @ 84 mls/hr IV. 1000 / 1000 1000 / 1000 CONT .[id number] [facility] Rx#: [id number] Cordarone Inj 150 MG In D5W Inj 100 / 100 97 ML @ 600 mls/hr IV.SIG ONCE ONE Rx#:[id number] Magnesium Sulfate 1 gm/D5W 100 200 / 200 ml Premix 200 ML @ 0 mls/hr IV. SIG .STK-MED ONE Rx#:[id number] Zosyn 3.375 GM Premix 50 ML @ 100 / 100 50 / 50 100 mls/hr IV.SIG Q6H [facility] Rx#: [id number] Oral 1080 / 1080 360 / 360 Output: Urine 300 / 300 275 / 275 Other: Date of Last Bowel Movement 05/17/18 # Bowel Movements 0 Result Diagrams: 05/19/18 05:02 05/18/18 04:06 Imaging: ITS Impressions Chest X-Ray 05/17/18 15:20 CONCLUSION: Cardiomegaly. No acute pulmonary disease. Postsurgical changes as above. Possible left lung nodule. CT scan is recommended for further evaluation if clinically indicated. Chest CTA 05/17/18 16:54 CONCLUSION: 1. Large bilateral pulmonary emboli as described above. 2. Findings have been discussed with Dr. Holliday on today's date. Objective Remarks: HEENT/Neuro: No pallor or icterus, tongue moist, LJ, Awake alert oriented 3 , nonfocal grossly, moving all 4 extremities Neck: No JVD Chest/pulmonary: Slightly tachypneic on nasal cannula, CTA bilaterally, scattered rhonchi Cardiovascular: S1-S2 irregularly irregular no gallop or murmur GI/abdomen: Soft, nontender, bowel sounds present Extremities: Warm bilaterally, no edema Assessment and Plan - Assessment and Plan Plan: Assessment: 62yF with massive pulmonary embolism with associated right ventricular failure, cardiogenic shock, multiorgan failure, acute hypoxemia. very critically ill and high risk for further decompensation and . s/p emergent systemic TPA administration. Active Problems: Massive pulmonary embolism Cardiogenic Shock (resolved) Right Ventricular Failure Type II NSTEMI secondary to demand ischemia from PE RV strain Congestive Hepatopathy Acute kidney injury secondary to cardiogenic shock Hypernatremia Hyperglycemia of Critical illness Stress-induced leukocytosis Lactic Acidosis Hypertension Plan: Follow neuro status CVS: Status post thrombolysis for massive PE. On full anticoagulation with heparin. Maintaining blood pressure currently. f/u 2d echo: CT evidence of RV failure with reflux of contrast into hepatic veins and RV >> LV cavity Amiodarone loading followed by IV infusion for A. fib with RVR. Digoxin 0.5 mg IV stat. Will use Lopressor if needed for rate control provided blood pressure tolerates. Restarting losartan, labetalol as needed for hypertension. Continue IV fluids. Pulmonary Off BiPAP since this morning. Tolerating nasal cannula. Bronchodilators as needed. GI/liver Advance p.o. diet as tolerated trend LFTs ID/ Heme: unlikely to be infectious in etiology. trend cbc. leukocytosis likely reactive from massive PE. continue heparin drip. troponins elevated from RV ischemia. no other clinical history to suggest ACS. Endocrine: Watch for hyperglycemia, SSI for glycemic control if needed Prophylaxis: PPI/SCDs. On full anticoagulation with heparin
[2018-05-19] MEDS ORDERED: MethylPREDNISolone Sod Succinate Inj 125 MG/2 ML Vial IV.PUSH ONE (10:00)
[2018-05-19] MEDS: Heparin Drip 25,000 UNIT/250 ML BAG IV.CONT PRN (13:40)
[2018-05-19] MEDS: Pantoprazole Inj 40 MG Vial IV.PUSH SCH (15:58)
[2018-05-19] MEDS: Senna/Docusate Sodium 8.6/50 MG Tablet PO SCH ×2 (15:58→20:43)
[2018-05-19] MEDS ORDERED: Dextrose 50% in Water 50 ML Vial IV.PUSH PRN (17:42)
[2018-05-19] MEDS: ARIPiprazole 10 MG Tablet PO SCH (18:09)
[2018-05-19] MEDS: MethylPREDNISolone Sod Succinate Inj 40 MG/ML Vial IV.PUSH SCH (20:43)
[2018-05-19] MEDS ORDERED: LOVAZA PO SCH (21:00)
[2018-05-20] MEDS: Sod Chloride 0.9% Inj 1,000 ML IV.CONT SCH ×2 (00:38→05:15)
[2018-05-20] MEDS: Insulin NovoLOG Aspart Correctional Sugar Inj SQ SCH ×3 (01:24→21:00)
[2018-05-20] MEDS: Piperacil/Tazo 3.375 GM Premix 50 ML IV.SIG SCH ×4 (04:04→22:07)
[2018-05-20] MEDS: Levothyroxine 150 MCG Tablet PO SCH (05:13)
[2018-05-20] MEDS: Chlorhexidine Gluconate 2% 1 Pack (2 Cloths) TOPICAL SCH (05:15)
[2018-05-20 05:48] LABS: Bilirubin,Urine Negative (Negative); Clarity,Urine Cloudy (Clear); Color,Urine Yellow (Yellw/Straw); Glucose,Urine (UA) Negative (Negative); Leukocyte Esterase,Urine Trace (Negative); Mucus,Urine Few /lpf (Occasional); Nitrite,Urine Negative (Negative); Specific Gravity,Urine 1.018 (1.002-1.035); Squamous Epithelial Cell,Urine 28 /hpf (0-5)
[2018-05-20] MEDS: Heparin Drip 25,000 UNIT/250 ML BAG IV.CONT PRN (06:38)
--- NOTE | 2018-05-20 08:14 | XR ---
EXAM DATE: 05/20/2018 8:01 AM EDT AGE/SEX: 62 years / Female INDICATIONS: COPD. Acute Respiratory Distress. Sepsis. CLINICAL DATA: This is the patient's subsequent encounter. Patient reports that signs and symptoms h ave been present for 4 - 6 days and indicates a pain score of 2/10. MEDICAL/SURGICAL HISTORY: Chronic obstructive pulmonary disease. . Right upper lobectomy 2018. COMPARISON: [facility], CHEST 1V SINGLE AP, 05/17/2018. . FINDINGS: AP portable semiupright view of the chest demonstrates progressive volume loss identified within the right hemithorax with obscuration of the right hemidiaphragm consistent with atelectasis versus airsp ciarra consolidation. The lungs are otherwise clear. Heart size appears mildly enlarged and the pulmonar y vasculature demonstrates increased prominence as compared to the prior exam. Surgical clips overlie the right upper chest. CONCLUSION: Progressive volume loss identified within the right hemithorax consistent with atelectasis versus pro gressive right lower lobe airspace consolidation. Interval increase size of the cardiac silhouette an d progressive engorgement of the pulmonary vessels concerning for congestive heart failure versus vol ume overload. Recommend upright PA lateral views the chest when clinically able. Electronically signed by: Sarah Sánchez MD 05/20/2018 8:12 AM EDT
[2018-05-20] MEDS: Pantoprazole Inj 40 MG Vial IV.PUSH SCH (09:08)
[2018-05-20] MEDS: ARIPiprazole 10 MG Tablet PO SCH (09:09)
[2018-05-20] MEDS: Gabapentin 300 MG Capsule PO SCH (09:09)
[2018-05-20] MEDS: buPROPion 100 MG ER 12 HR Tablet PO SCH (09:10)
[2018-05-20] MEDS: MethylPREDNISolone Sod Succinate Inj 40 MG/ML Vial IV.PUSH SCH ×2 (09:11→20:08)
[2018-05-20] MEDS: Senna/Docusate Sodium 8.6/50 MG Tablet PO SCH ×2 (09:11→20:08)
--- NOTE | 2018-05-20 13:50 | P.PNCC ---
Subjective Subjective Remarks/Hospital Course: 05/17: 62yF with history of COPD and lung adenocarcinoma s/p RUL lobectomy in 2017 who presented with 1 day history of acute SOB. presented to [facility] with acute hypoxemia and hypotension. CT pulmonary angiogram demonstrates massive pulmonary embolism with evidence of right heart acute dysfunction and reflux of contrast into the hepatic veins suggestive of acute RV dysfunction. due to hemodynamic instability, given iv systemic TPA. placed on BiPAP and emergently transported to [facility] ICU. on my evaluation, patient remains dyspneic on BiPAP. unable to talk in full sentences. ROS limited, but negative for chest pain, fever, chills, cough, n/v/c/d/abd pain. + SOB. 05/18: Tolerating nasal cannula since this morning. No hypotension overnight. Went into A. fib with RVR. Denies any chest pain or worsening shortness of breath. Had some palpitations earlier. Does not appear to be in any acute distress. 05/19: Complaining of shortness of breath and headache. Blood pressure 170 systolic currently. Ordered labetalol IV. Also initiating IV Solu-Medrol to see if her breathing response. Remains on nasal cannula. 05/20: On high flow nasal cannula. Chest x-ray this morning shows right basilar atelectasis versus consolidation and possible fluid overload. Patient remains on IV Zosyn. He is resting comfortably in bed flow O2 requirement remains high. Objective Vital Signs / I&O: Vital Signs 05/19/18 13:40 05/19/18 14:00 05/19/18 14:12 Temperature Pulse Rate 75 70 Respiratory Rate 27 H 26 H Blood Pressure 193/91 H 184/90 H 177/88 H Pulse Oximetry 98 98 05/19/18 14:20 05/19/18 14:39 05/19/18 14:40 Temperature Pulse Rate 71 72 72 Respiratory Rate 26 H 25 H 26 H Blood Pressure 187/91 H 195/85 H 196/88 H Pulse Oximetry 98 98 98 05/19/18 14:43 05/19/18 15:00 05/19/18 15:20 Temperature Pulse Rate 69 68 72 Respiratory Rate 25 H 27 H 28 H Blood Pressure 172/81 H 183/100 H 194/91 H Pulse Oximetry 97 98 98 05/19/18 15:40 05/19/18 15:42 05/19/18 15:45 Temperature Pulse Rate 74 73 72 Respiratory Rate 35 H 30 H 32 H Blood Pressure 209/100 H 192/82 H 167/75 H Pulse Oximetry 97 96 97 05/19/18 16:00 05/19/18 16:18 05/19/18 16:20 Temperature Pulse Rate 72 74 Respiratory Rate 26 H 49 H Blood Pressure 149/82 H 167/95 H Pulse Oximetry 97 96 96 05/19/18 16:24 05/19/18 16:41 05/19/18 17:00 Temperature Pulse Rate 85 74 74 Respiratory Rate 18 38 H 28 H Blood Pressure 166/89 H 152/90 H Pulse Oximetry 98 96 05/19/18 17:20 05/19/18 17:40 05/19/18 18:00 Temperature Pulse Rate 75 76 77 Respiratory Rate 24 24 39 H Blood Pressure 154/97 H 168/94 H Pulse Oximetry 95 95 94 L 05/19/18 18:20 05/19/18 18:24 05/19/18 18:41 Temperature Pulse Rate 80 79 77 Respiratory Rate 29 H 25 H 27 H Blood Pressure 181/96 H 171/90 H 147/82 H Pulse Oximetry 94 L 94 L 96 05/19/18 19:00 05/19/18 19:20 05/19/18 19:40 Temperature Pulse Rate 80 81 80 Respiratory Rate 28 H 30 H 34 H Blood Pressure 151/89 H 171/89 H 160/93 H Pulse Oximetry 96 95 96 05/19/18 20:00 05/19/18 20:20 05/19/18 20:23 Temperature 98.7 F Pulse Rate 80 79 79 Respiratory Rate 33 H 32 H 18 Blood Pressure 164/94 H 160/96 H Pulse Oximetry 94 L 98 97 05/19/18 20:40 05/19/18 21:00 05/19/18 21:20 Temperature Pulse Rate 77 78 77 Respiratory Rate 31 H 25 H 29 H Blood Pressure 148/94 H 151/76 H 144/94 H Pulse Oximetry 99 98 97 05/19/18 21:49 05/19/18 22:00 05/19/18 23:00 Temperature Pulse Rate 75 77 75 Respiratory Rate 23 28 H 23 Blood Pressure 148/94 H Pulse Oximetry 98 98 97 05/19/18 23:51 05/20/18 00:00 05/20/18 01:00 Temperature 98.1 F Pulse Rate 76 75 75 Respiratory Rate 16 20 21 Blood Pressure Pulse Oximetry 98 95 05/20/18 01:28 05/20/18 02:00 05/20/18 03:00 Temperature Pulse Rate 75 73 73 Respiratory Rate 5 L 19 20 Blood Pressure 155/75 H 148/75 H 155/74 H Pulse Oximetry 95 97 96 05/20/18 03:46 05/20/18 04:00 05/20/18 04:42 Temperature 98.4 F Pulse Rate 74 74 Respiratory Rate 20 21 Blood Pressure 155/80 H Pulse Oximetry 96 95 05/20/18 05:00 05/20/18 05:01 05/20/18 06:00 Temperature Pulse Rate 80 83 73 Respiratory Rate 40 H 34 H 23 Blood Pressure 140/87 146/84 H Pulse Oximetry 100 100 96 05/20/18 07:00 05/20/18 08:00 05/20/18 09:31 Temperature 98.2 F Pulse Rate 71 72 75 Respiratory Rate 20 19 16 Blood Pressure 139/84 152/83 H Pulse Oximetry 96 97 100 05/20/18 12:00 05/20/18 12:22 Temperature 98.4 F Pulse Rate 73 75 Respiratory Rate 21 20 Blood Pressure 159/88 H Pulse Oximetry 96 Intake & Output 05/19/18 05/20/18 05/20/18 18:59 06:59 18:59 Intake Total 990 / 990 1750 / 1750 Output Total 350 / 350 650 / 650 Balance 640 / 640 1100 / 1100 Weight 139.1 kg Intake: IV 690 / 690 1350 / 1350 Cordarone Inj 450 MG In D5W Inj 340 / 340 241 ML @ 1 MG/MIN 33.33 mls/hr IV.CONT .Q7H31M [facility] Rx#: [id number] Heparin/D5W 25,000 U/250 mL 25, 250 / 250 250 / 250 000 unit In 250 ml @ Per Protocol IV.CONT TITRATE PRN Rx #:[id number] NS Inj 1,000 ML @ 84 mls/hr IV. 1000 / 1000 CONT .[id number] [facility] Rx#: [id number] Zosyn 3.375 GM Premix 50 ML @ 100 / 100 100 / 100 100 mls/hr IV.SIG Q6H [facility] Rx#: [id number] Oral 300 / 300 400 / 400 Output: Urine 350 / 350 650 / 650 Other: # Voids 2 Date of Last Bowel Movement 05/17/18 05/17/18 # Bowel Movements 0 Result Diagrams: 05/19/18 05:02 05/18/18 04:06 Objective Remarks: HEENT/Neuro: No pallor or icterus, tongue moist, LJ, Awake alert oriented 3 , nonfocal grossly, moving all 4 extremities Neck: No JVD Chest/pulmonary: Slightly tachypneic on high flow nasal cannula, CTA bilaterally , scattered rhonchi Cardiovascular: S1-S2 irregularly irregular no gallop or murmur GI/abdomen: Soft, nontender, bowel sounds present Extremities: Warm bilaterally, no edema Assessment and Plan - Assessment and Plan Plan: Assessment: 62yF with massive pulmonary embolism with associated right ventricular failure, cardiogenic shock, multiorgan failure, acute hypoxemia. very critically ill and high risk for further decompensation and . s/p emergent systemic TPA administration. Active Problems: Massive pulmonary embolism Cardiogenic Shock (resolved) Right Ventricular Failure Type II NSTEMI secondary to demand ischemia from PE RV strain Congestive Hepatopathy Acute kidney injury secondary to cardiogenic shock Hypernatremia Hyperglycemia of Critical illness Stress-induced leukocytosis Lactic Acidosis Hypertension Acute respiratory failure Possible pneumonia Plan: Follow neuro status CVS: Status post thrombolysis for massive PE. On full anticoagulation with heparin. Maintaining blood pressure currently. f/u 2d echo: CT evidence of RV failure with reflux of contrast into hepatic veins and RV >> LV cavity Amiodarone loading followed by IV infusion for A. fib with RVR. Digoxin 0.5 mg IV x 1. Will use Lopressor if needed for rate control provided blood pressure tolerates. Restarted losartan, labetalol as needed for hypertension. Stop IV fluids. Lasix 20mg IV x 1 dose 05/20 Pulmonary Continue high flow nasal cannula. bronchodilators as needed. GI/liver Advance p.o. diet as tolerated trend LFTs ID/ Heme: Possible pneumonia on chest x-ray. remains on Zosyn for empiric antibiotic coverage Stop heparin drip because patient has been started on Eliquis for full anticoagulation. Discussed pros and cons of Coumadin versus Eliquis/ other oral anticoagulants with patient and she prefers Eliquis as she has a very difficult stick for blood draws which would be required for INR testing if Coumadin were used. Hematology consult noted troponins elevated from RV ischemia. no other clinical history to suggest ACS. Endocrine: Watch for hyperglycemia, SSI for glycemic control if needed Prophylaxis: PPI/SCDs. On full anticoagulation.
[2018-05-20 15:47] LABS: Baso % (Auto) 0.2 % (0.0-2.0); Eos % (Auto) 0.3 % (0.0-4.0); Hematocrit 35.7 % (35.0-46.0); Hemoglobin 11.6 gm/dL (11.6-15.3); Lymph # (Auto) 0.9 th/mm3 (1.0-4.8); Lymph % (Auto) 11.4 % (9.0-44.0); Mean Corpuscular HGB Conc 32.5 % (32.0-36.0); Mean Corpuscular Hemoglobin 30.8 pg (27.0-34.0); Mean Platelet Volume 7.3 fL (7.0-11.0); Mono # (Auto) 0.4 th/mm3 (0.0-0.9); Neut # (Auto) 6.7 th/mm3 (1.8-7.7); Neut % (Auto) 83.1 % (16.0-70.0); Platelet Count 272 th/mm3 (150-450); Red Blood Count 3.76 mil/mm3 (4.00-5.30); Red Cell Distribution Width 14.5 % (11.6-17.2); White Blood Count 8.1 th/mm3 (4.0-11.0)
[2018-05-20 16:09] LABS: Alanine Aminotransferase 40 U/L (10-53); Anion Gap 7 meq/L (5-15); Aspartate Aminotransferase 15 U/L (15-37); Blood Urea Nitrogen 16 mg/dL (7-18); Calcium 8.8 mg/dL (8.5-10.1); Carbon Dioxide 26.1 meq/L (21.0-32.0); Chloride 114 meq/L (98-107); Glomerular Filtration Rate 70 mL/min (>89); Glucose,Random 147 mg/dL (74-106); Sodium 147 meq/L (136-145)
[2018-05-20 16:15] LABS: Alkaline Phosphatase 106 U/L (45-117); Total Protein 6.5 g/dL (6.4-8.2)
--- NOTE | 2018-05-20 16:18 | P.PN ---
Subjective Interval history: ALERT NAD Physical Exam Vital signs: Vital Signs 05/19/18 16:18 05/19/18 16:20 05/19/18 16:24 Temperature Pulse Rate 74 85 Respiratory Rate 49 H 18 Blood Pressure 167/95 H Pulse Oximetry 96 96 05/19/18 16:41 05/19/18 17:00 05/19/18 17:20 Temperature Pulse Rate 74 74 75 Respiratory Rate 38 H 28 H 24 Blood Pressure 166/89 H 152/90 H 154/97 H Pulse Oximetry 98 96 95 05/19/18 17:40 05/19/18 18:00 05/19/18 18:20 Temperature Pulse Rate 76 77 80 Respiratory Rate 24 39 H 29 H Blood Pressure 168/94 H 181/96 H Pulse Oximetry 95 94 L 94 L 05/19/18 18:24 05/19/18 18:41 05/19/18 19:00 Temperature Pulse Rate 79 77 80 Respiratory Rate 25 H 27 H 28 H Blood Pressure 171/90 H 147/82 H 151/89 H Pulse Oximetry 94 L 96 96 05/19/18 19:20 05/19/18 19:40 05/19/18 20:00 Temperature 98.7 F Pulse Rate 81 80 80 Respiratory Rate 30 H 34 H 33 H Blood Pressure 171/89 H 160/93 H 164/94 H Pulse Oximetry 95 96 94 L 05/19/18 20:20 05/19/18 20:23 05/19/18 20:40 Temperature Pulse Rate 79 79 77 Respiratory Rate 32 H 18 31 H Blood Pressure 160/96 H 148/94 H Pulse Oximetry 98 97 99 05/19/18 21:00 05/19/18 21:20 05/19/18 21:49 Temperature Pulse Rate 78 77 75 Respiratory Rate 25 H 29 H 23 Blood Pressure 151/76 H 144/94 H 148/94 H Pulse Oximetry 98 97 98 05/19/18 22:00 05/19/18 23:00 05/19/18 23:51 Temperature Pulse Rate 77 75 76 Respiratory Rate 28 H 23 16 Blood Pressure Pulse Oximetry 98 97 05/20/18 00:00 05/20/18 01:00 05/20/18 01:28 Temperature 98.1 F Pulse Rate 75 75 75 Respiratory Rate 20 21 5 L Blood Pressure 155/75 H Pulse Oximetry 98 95 95 05/20/18 02:00 05/20/18 03:00 05/20/18 03:46 Temperature Pulse Rate 73 73 74 Respiratory Rate 19 20 20 Blood Pressure 148/75 H 155/74 H Pulse Oximetry 97 96 05/20/18 04:00 05/20/18 04:42 05/20/18 05:00 Temperature 98.4 F Pulse Rate 74 80 Respiratory Rate 21 40 H Blood Pressure 155/80 H Pulse Oximetry 96 95 100 05/20/18 05:01 05/20/18 06:00 05/20/18 07:00 Temperature Pulse Rate 83 73 71 Respiratory Rate 34 H 23 20 Blood Pressure 140/87 146/84 H 139/84 Pulse Oximetry 100 96 96 05/20/18 08:00 05/20/18 09:31 05/20/18 12:00 Temperature 98.2 F 98.4 F Pulse Rate 72 75 73 Respiratory Rate 19 16 21 Blood Pressure 152/83 H 159/88 H Pulse Oximetry 97 100 96 05/20/18 12:22 05/20/18 15:05 Temperature Pulse Rate 75 77 Respiratory Rate 20 25 H Blood Pressure Pulse Oximetry Intake & Output 05/19/18 05/20/18 05/20/18 18:59 06:59 18:59 Intake Total 990 / 990 1750 / 1750 Output Total 350 / 350 650 / 650 Balance 640 / 640 1100 / 1100 Weight 139.1 kg Intake: IV 690 / 690 1350 / 1350 Cordarone Inj 450 MG In D5W Inj 340 / 340 241 ML @ 1 MG/MIN 33.33 mls/hr IV.CONT .Q7H31M [facility] Rx#: [id number] Heparin/D5W 25,000 U/250 mL 25, 250 / 250 250 / 250 000 unit In 250 ml @ Per Protocol IV.CONT TITRATE PRN Rx #:[id number] NS Inj 1,000 ML @ 84 mls/hr IV. 1000 / 1000 CONT .[id number] [facility] Rx#: [id number] Zosyn 3.375 GM Premix 50 ML @ 100 / 100 100 / 100 100 mls/hr IV.SIG Q6H [facility] Rx#: [id number] Oral 300 / 300 400 / 400 Output: Urine 350 / 350 650 / 650 Other: # Voids 2 Date of Last Bowel Movement 05/17/18 05/17/18 # Bowel Movements 0 Results - Labs CBC & Chem 7: 05/20/18 14:40 05/20/18 14:40 Laboratory Results - last 24 hr 05/19/18 05/19/18 05/20/18 16:40 20:50 04:11 WBC RBC Hgb Hct MCV MCH MCHC RDW Plt Count MPV Neut % (Auto) Lymph % (Auto) Trigg % (Auto) Eos % (Auto) Baso % (Auto) Neut # (Auto) Lymph # (Auto) Trigg # (Auto) Eos # (Auto) Baso # (Auto) WBC Differential Differential Comment APTT 47.4 H Sodium Potassium Chloride Carbon Dioxide Anion Gap BUN Creatinine Estimated GFR POC Glucose 165 H 147 H Random Glucose Calcium Total Bilirubin AST ALT Alkaline Phosphatase Total Protein Albumin Urine Color Urine Clarity Urine pH Ur Specific [place] Urine Protein Urine Glucose (UA) Urine Ketones Urine Occult Blood Urine Nitrate Urine Bilirubin Urine Urobilinogen Ur Leukocyte Esterase Urine RBC Urine WBC Ur Squamous Epith Cells Urine Mucus Urine Yeast Micro UA Comment Urine Culture Comments 05/20/18 05/20/18 05/20/18 04:50 09:45 12:55 WBC RBC Hgb Hct MCV MCH MCHC RDW Plt Count MPV Neut % (Auto) Lymph % (Auto) Trigg % (Auto) Eos % (Auto) Baso % (Auto) Neut # (Auto) Lymph # (Auto) Trigg # (Auto) Eos # (Auto) Baso # (Auto) WBC Differential Differential Comment APTT Sodium Potassium Chloride Carbon Dioxide Anion Gap BUN Creatinine Estimated GFR POC Glucose 118 H 127 H Random Glucose Calcium Total Bilirubin AST ALT Alkaline Phosphatase Total Protein Albumin Urine Color Yellow Urine Clarity Cloudy H Urine pH 5.0 Ur Specific [place] 1.018 Urine Protein 30 H Urine Glucose (UA) Negative Urine Ketones Negative Urine Occult Blood Small H Urine Nitrate Negative Urine Bilirubin Negative Urine Urobilinogen Less than 2 Ur Leukocyte Esterase Trace H Urine RBC 111 H Urine WBC 11 H Ur Squamous Epith Cells 28 Urine Mucus Few H Urine Yeast Many H Micro UA Comment Cath-culture ind Urine Culture Comments Cath-cult indicated 05/20/18 05/20/18 14:40 14:40 WBC 8.1 RBC 3.76 L Hgb 11.6 Hct 35.7 MCV 95.0 MCH 30.8 MCHC 32.5 RDW 14.5 Plt Count 272 MPV 7.3 Neut % (Auto) 83.1 H Lymph % (Auto) 11.4 Trigg % (Auto) 5.0 Eos % (Auto) 0.3 Baso % (Auto) 0.2 Neut # (Auto) 6.7 Lymph # (Auto) 0.9 L Trigg # (Auto) 0.4 Eos # (Auto) 0.0 Baso # (Auto) 0.0 WBC Differential . Differential Comment Auto diff final APTT Sodium 147 H Potassium 4.0 Chloride 114 H Carbon Dioxide 26.1 Anion Gap 7 BUN 16 Creatinine 0.82 Estimated GFR 70 L POC Glucose Random Glucose 147 H Calcium 8.8 Total Bilirubin 0.3 AST 15 ALT 40 Alkaline Phosphatase 106 Total Protein 6.5 Albumin 3.0 L Urine Color Urine Clarity Urine pH Ur Specific [place] Urine Protein Urine Glucose (UA) Urine Ketones Urine Occult Blood Urine Nitrate Urine Bilirubin Urine Urobilinogen Ur Leukocyte Esterase Urine RBC Urine WBC Ur Squamous Epith Cells Urine Mucus Urine Yeast Micro UA Comment Urine Culture Comments Microbiology 05/17/18 16:35 Blood - Peripheral Aerobic Blood Culture - Preliminary No growth in 3 days 05/17/18 16:35 Blood - Peripheral Anaerobic Blood Culture - Preliminary No growth in 3 days 05/17/18 16:30 Blood - Peripheral Aerobic Blood Culture - Preliminary No growth in 3 days 05/17/18 16:30 Blood - Peripheral Anaerobic Blood Culture - Preliminary No growth in 3 days - Imaging Impressions Chest X-Ray 05/20/18 08:00 CONCLUSION: Progressive volume loss identified within the right hemithorax consistent with atelectasis versus progressive right lower lobe airspace consolidation. Interval increase size of the cardiac silhouette and progressive engorgement of the pulmonary vessels concerning for congestive heart failure versus volume overload. Recommend upright PA lateral views the chest when clinically able. Assessment and Plan - Assessment (1) Adenosquamous carcinoma of lung Code(s): C34.90 - Malignant neoplasm of unspecified part of unspecified bronchus or lung Status: Acute (2) Acute massive pulmonary embolism Code(s): I26.99 - Other pulmonary embolism without acute cor pulmonale Status : Acute - Attending Attestation REPIRATORY FAILURE LUNG CA MASSIVE PE PLAN O2 NEEDED ANTICOAGS PULM TOILET INCREASE ACTIVITY (1) Adenosquamous carcinoma of lung Qualifiers: Laterality: right Qualified Code(s): C34.91 - Malignant neoplasm of unspecified part of right bronchus or lung
[2018-05-20 17:20] LABS: Bilirubin,Urine Negative (Negative); Clarity,Urine Clear (Clear); Color,Urine Yellow (Yellw/Straw); Glucose,Urine (UA) Negative (Negative); Leukocyte Esterase,Urine Negative (Negative); Mucus,Urine Few /lpf (Occasional); Nitrite,Urine Negative (Negative); Specific Gravity,Urine 1.023 (1.002-1.035)
[2018-05-21] MEDS: Piperacil/Tazo 3.375 GM Premix 50 ML IV.SIG SCH ×4 (03:57→22:28)
[2018-05-21] MEDS: Labetalol HCl Inj 100 MG/20 ML Vial IV.PUSH PRN (04:10)
[2018-05-21 04:37] LABS: Baso % (Auto) 0.4 % (0.0-2.0); Eos % (Auto) 0.2 % (0.0-4.0); Hematocrit 35.4 % (35.0-46.0); Hemoglobin 11.6 gm/dL (11.6-15.3); Lymph # (Auto) 1.3 th/mm3 (1.0-4.8); Lymph % (Auto) 17.2 % (9.0-44.0); Mean Corpuscular HGB Conc 32.9 % (32.0-36.0); Mean Corpuscular Volume 94.2 fL (80.0-100.0); Mean Platelet Volume 7.3 fL (7.0-11.0); Mono # (Auto) 0.5 th/mm3 (0.0-0.9); Mono % (Auto) 6.9 % (0.0-8.0); Neut # (Auto) 5.7 th/mm3 (1.8-7.7); Neut % (Auto) 75.3 % (16.0-70.0); Platelet Count 288 th/mm3 (150-450); Red Blood Count 3.76 mil/mm3 (4.00-5.30); Red Cell Distribution Width 14.8 % (11.6-17.2); White Blood Count 7.6 th/mm3 (4.0-11.0)
[2018-05-21 05:17] LABS: Alanine Aminotransferase 40 U/L (10-53); Albumin 2.8 g/dL (3.4-5.0); Alkaline Phosphatase 106 U/L (45-117); Anion Gap 10 meq/L (5-15); Aspartate Aminotransferase 36 U/L (15-37); Blood Urea Nitrogen 20 mg/dL (7-18); Calcium 9.1 mg/dL (8.5-10.1); Carbon Dioxide 25.4 meq/L (21.0-32.0); Chloride 111 meq/L (98-107); Glomerular Filtration Rate 58 mL/min (>89); Glucose,Random 145 mg/dL (74-106); Sodium 146 meq/L (136-145); Total Protein 6.7 g/dL (6.4-8.2)
[2018-05-21 05:19] LABS: Potassium 4.7 meq/L (3.5-5.1)
[2018-05-21] MEDS: Pantoprazole Inj 40 MG Vial IV.PUSH SCH (08:06)
[2018-05-21] MEDS: ARIPiprazole 10 MG Tablet PO SCH (08:07)
[2018-05-21] MEDS: MethylPREDNISolone Sod Succinate Inj 40 MG/ML Vial IV.PUSH SCH ×2 (08:07→20:26)
[2018-05-21] MEDS: Gabapentin 300 MG Capsule PO SCH (08:07)
[2018-05-21] MEDS: buPROPion 100 MG ER 12 HR Tablet PO SCH (08:08)
--- NOTE | 2018-05-21 09:11 | P.PNCC ---
Subjective Subjective Remarks/Hospital Course: 05/17: 62yF with history of COPD and lung adenocarcinoma s/p RUL lobectomy in 2017 who presented with 1 day history of acute SOB. presented to [facility] with acute hypoxemia and hypotension. CT pulmonary angiogram demonstrates massive pulmonary embolism with evidence of right heart acute dysfunction and reflux of contrast into the hepatic veins suggestive of acute RV dysfunction. due to hemodynamic instability, given iv systemic TPA. placed on BiPAP and emergently transported to [facility] ICU. on my evaluation, patient remains dyspneic on BiPAP. unable to talk in full sentences. ROS limited, but negative for chest pain, fever, chills, cough, n/v/c/d/abd pain. + SOB. 05/18: Tolerating nasal cannula since this morning. No hypotension overnight. Went into A. fib with RVR. Denies any chest pain or worsening shortness of breath. Had some palpitations earlier. Does not appear to be in any acute distress. 05/19: Complaining of shortness of breath and headache. Blood pressure 170 systolic currently. Ordered labetalol IV. Also initiating IV Solu-Medrol to see if her breathing response. Remains on nasal cannula. 05/20: On high flow nasal cannula. Chest x-ray this morning shows right basilar atelectasis versus consolidation and possible fluid overload. Patient remains on IV Zosyn. He is resting comfortably in bed flow O2 requirement remains high. 05/21: On high flow nasal cannula. Initiated Lasix yesterday for mobilizing fluid. This morning appears comfortable on high flow nasal cannula. Denies any chest pain currently. Objective Vital Signs / I&O: Vital Signs 05/20/18 09:31 05/20/18 10:00 05/20/18 11:00 Temperature Pulse Rate 75 73 75 Respiratory Rate 16 26 H 24 Blood Pressure 152/86 H 155/80 H Pulse Oximetry 100 98 96 05/20/18 12:00 05/20/18 12:22 05/20/18 13:00 Temperature 98.4 F Pulse Rate 73 75 78 Respiratory Rate 20 20 28 H Blood Pressure 159/88 H 151/88 H Pulse Oximetry 92 L 94 L 05/20/18 14:00 05/20/18 15:00 05/20/18 15:05 Temperature Pulse Rate 80 78 77 Respiratory Rate 25 H 26 H 25 H Blood Pressure 156/83 H 151/82 H Pulse Oximetry 93 L 93 L 05/20/18 16:00 05/20/18 16:20 05/20/18 17:00 Temperature Pulse Rate 80 80 79 Respiratory Rate 35 H 29 H 29 H Blood Pressure 142/78 H Pulse Oximetry 93 L 93 L 93 L 05/20/18 17:50 05/20/18 18:00 05/20/18 19:00 Temperature Pulse Rate 76 81 78 Respiratory Rate 23 23 21 Blood Pressure 141/86 H 146/93 H 128/89 Pulse Oximetry 95 94 L 94 L 05/20/18 19:54 05/20/18 20:00 05/20/18 21:00 Temperature 98.2 F Pulse Rate 74 74 76 Respiratory Rate 16 18 25 H Blood Pressure 140/78 146/84 H Pulse Oximetry 95 98 96 05/20/18 22:00 05/20/18 23:00 05/21/18 00:00 Temperature 98.3 F Pulse Rate 75 72 71 Respiratory Rate 23 23 24 Blood Pressure 149/85 H 154/80 H 151/81 H Pulse Oximetry 96 96 94 L 05/21/18 01:00 05/21/18 02:00 05/21/18 03:00 Temperature Pulse Rate 76 69 68 Respiratory Rate 28 H 19 19 Blood Pressure 165/95 H 150/85 H 175/86 H Pulse Oximetry 95 94 L 95 05/21/18 03:28 05/21/18 04:00 05/21/18 04:30 Temperature 98.3 F Pulse Rate 72 71 60 Respiratory Rate 18 24 22 Blood Pressure 161/75 H 140/74 Pulse Oximetry 96 97 05/21/18 05:00 05/21/18 05:30 05/21/18 06:00 Temperature Pulse Rate 60 61 62 Respiratory Rate 19 19 18 Blood Pressure 137/76 137/74 148/80 H Pulse Oximetry 96 95 95 05/21/18 06:30 05/21/18 07:00 05/21/18 07:55 Temperature Pulse Rate 62 62 64 Respiratory Rate 20 20 16 Blood Pressure 143/77 H 143/77 H Pulse Oximetry 98 98 05/21/18 07:56 Temperature Pulse Rate Respiratory Rate Blood Pressure Pulse Oximetry 99 Intake & Output 05/20/18 05/21/18 05/21/18 18:59 06:59 18:59 Intake Total 50 / 50 710 / 710 Output Total 1100 / 1100 Balance 50 / 50 -390 / -390 Weight 141.1 kg Intake: IV 50 / 50 350 / 350 Cordarone Inj 450 MG In D5W Inj 250 / 250 241 ML @ 1 MG/MIN 33.33 mls/hr IV.CONT .Q7H31M ARABELLA Rx#: [id number] Zosyn 3.375 GM Premix 50 ML @ 50 / 50 100 / 100 100 mls/hr IV.SIG Q6H ARABELLA Rx#: [id number] Oral 360 / 360 Output: Urine Amount (Catheter) 1100 / 1100 Indwelling Urethral Catheter 1100 / 1100 Other: Date of Last Bowel Movement 05/17/18 05/17/18 # Bowel Movements 0 Result Diagrams: 05/21/18 04:24 05/21/18 04:24 Imaging: ITS Impressions Chest CTA 05/17/18 16:54 CONCLUSION: 1. Large bilateral pulmonary emboli as described above. 2. Findings have been discussed with Dr. Holliday on today's date. Chest X-Ray 05/20/18 08:00 CONCLUSION: Progressive volume loss identified within the right hemithorax consistent with atelectasis versus progressive right lower lobe airspace consolidation. Interval increase size of the cardiac silhouette and progressive engorgement of the pulmonary vessels concerning for congestive heart failure versus volume overload. Recommend upright PA lateral views the chest when clinically able. Objective Remarks: HEENT/Neuro: No pallor or icterus, tongue moist, LJ, Awake alert oriented 3 , nonfocal grossly, moving all 4 extremities Neck: No JVD Chest/pulmonary: On high flow nasal cannula, CTA bilaterally, scattered rhonchi Cardiovascular: S1-S2 irregularly irregular no gallop or murmur GI/abdomen: Soft, nontender, bowel sounds present Extremities: Warm bilaterally, no edema Assessment and Plan - Assessment and Plan Plan: Assessment: 62yF with massive pulmonary embolism with associated right ventricular failure, cardiogenic shock, multiorgan failure, acute hypoxemia. very critically ill and high risk for further decompensation and . s/p emergent systemic TPA administration. Active Problems: Massive pulmonary embolism Cardiogenic Shock (resolved) Right Ventricular Failure Type II NSTEMI secondary to demand ischemia from PE RV strain Congestive Hepatopathy Acute kidney injury secondary to cardiogenic shock Hypernatremia Hyperglycemia of Critical illness Stress-induced leukocytosis Lactic Acidosis Hypertension Acute respiratory failure Possible pneumonia Plan: Follow neuro status CVS: Status post thrombolysis for massive PE. On full anticoagulation with heparin. Maintaining blood pressure currently. f/u 2d echo: CT evidence of RV failure with reflux of contrast into hepatic veins and RV >> LV cavity Amiodarone loading followed by IV infusion for A. fib with RVR. Digoxin 0.5 mg IV x 1. Will use Lopressor if needed for rate control provided blood pressure tolerates. Restarted losartan, labetalol as needed for hypertension. Stopped IV fluids. Lasix 20mg IV x 1 dose 05/20, lasix 40mg IV on 05/21 Pulmonary Continue high flow nasal cannula. bronchodilators as needed. Solumedrol GI/liver Advance p.o. diet as tolerated trend LFTs ID/ Heme: Possible pneumonia on chest x-ray. remains on Zosyn for empiric antibiotic coverage Off heparin drip. Started on Eliquis for full anticoagulation on 05/20. ( Previously discussed pros and cons of Coumadin versus Eliquis/ other oral anticoagulants with patient and she prefers Eliquis as she has a very difficult stick for blood draws which would be required for INR testing if Coumadin were used.) Hematology consult noted troponins elevated from RV ischemia. no other clinical history to suggest ACS. F /U 2D echo, BNP Endocrine: Watch for hyperglycemia, SSI for glycemic control if needed Prophylaxis: PPI/SCDs. On full anticoagulation.
[2018-05-21] MEDS: Insulin NovoLOG Aspart Correctional Sugar Inj SQ SCH ×4 (11:55→20:24)
[2018-05-21] MEDS: Senna/Docusate Sodium 8.6/50 MG Tablet PO SCH ×2 (11:59→20:26)
--- NOTE | 2018-05-21 16:00 | P.PN ---
Subjective Interval history: ALERT ON O2 NO DISTRESS Physical Exam Vital signs: Vital Signs 05/20/18 16:00 05/20/18 16:20 05/20/18 17:00 Temperature Pulse Rate 80 80 79 Respiratory Rate 35 H 29 H 29 H Blood Pressure 142/78 H Pulse Oximetry 93 L 93 L 93 L 05/20/18 17:50 05/20/18 18:00 05/20/18 19:00 Temperature Pulse Rate 76 81 78 Respiratory Rate 23 23 21 Blood Pressure 141/86 H 146/93 H 128/89 Pulse Oximetry 95 94 L 94 L 05/20/18 19:54 05/20/18 20:00 05/20/18 21:00 Temperature 98.2 F Pulse Rate 74 74 76 Respiratory Rate 16 18 25 H Blood Pressure 140/78 146/84 H Pulse Oximetry 95 98 96 05/20/18 22:00 05/20/18 23:00 05/21/18 00:00 Temperature 98.3 F Pulse Rate 75 72 71 Respiratory Rate 23 23 24 Blood Pressure 149/85 H 154/80 H 151/81 H Pulse Oximetry 96 96 94 L 05/21/18 01:00 05/21/18 02:00 05/21/18 03:00 Temperature Pulse Rate 76 69 68 Respiratory Rate 28 H 19 19 Blood Pressure 165/95 H 150/85 H 175/86 H Pulse Oximetry 95 94 L 95 05/21/18 03:28 05/21/18 04:00 05/21/18 04:30 Temperature 98.3 F Pulse Rate 72 71 60 Respiratory Rate 18 24 22 Blood Pressure 161/75 H 140/74 Pulse Oximetry 96 97 05/21/18 05:00 05/21/18 05:30 05/21/18 06:00 Temperature Pulse Rate 60 61 62 Respiratory Rate 19 19 18 Blood Pressure 137/76 137/74 148/80 H Pulse Oximetry 96 95 95 05/21/18 06:30 05/21/18 07:00 05/21/18 07:55 Temperature Pulse Rate 62 62 64 Respiratory Rate 20 20 16 Blood Pressure 143/77 H 143/77 H Pulse Oximetry 98 98 05/21/18 07:56 05/21/18 08:00 05/21/18 14:16 Temperature Pulse Rate 63 70 Respiratory Rate 18 Blood Pressure Pulse Oximetry 99 93 L Intake & Output 05/20/18 05/21/1818 18:59 06:59 18:59 Intake Total 50 / 50 760 / 760 Output Total 1100 / 1100 2450 / 2450 Balance 50 / 50 -340 / -340 -2450 / -2450 Weight 141.1 kg Intake: IV 50 / 50 400 / 400 Cordarone Inj 450 MG In D5W Inj 250 / 250 241 ML @ 1 MG/MIN 33.33 mls/hr IV.CONT .Q7H31M ARABELLA Rx#: [id number] Zosyn 3.375 GM Premix 50 ML @ 50 / 50 150 / 150 100 mls/hr IV.SIG Q6H ARABELLA Rx#: [id number] Oral 360 / 360 Output: Urine Amount (Catheter) 1100 / 1100 2450 / 2450 Indwelling Urethral Catheter 1100 / 1100 2450 / 2450 Other: Date of Last Bowel Movement 05/17/18 05/17/18 # Bowel Movements 0 - Constitutional no acute distress - Routine HEENT Exam Head: Present: normocephalic Eye: Present: EOMI, PERRL ENT: Present: mucous membranes moist - Routine Neck Exam Present: supple - Routine Cardiovascular Exam Present: RRR - Routine Abdominal Exam Present: soft - Urinary Catheter Management Indwelling Urethral Catheter Cath placed during this visit: no Results - Labs CBC & Chem 7: 05/21/18 04:24 05/21/18 04:24 Laboratory Results - last 24 hr 05/20/18 05/20/18 05/20/18 14:40 15:40 20:19 WBC RBC Hgb Hct MCV MCH MCHC RDW Plt Count MPV Neut % (Auto) Lymph % (Auto) [place] % (Auto) Eos % (Auto) Baso % (Auto) Neut # (Auto) Lymph # (Auto) [place] # (Auto) Eos # (Auto) Baso # (Auto) WBC Differential Differential Comment APTT Sodium 147 H Potassium 4.0 Chloride 114 H Carbon Dioxide 26.1 Anion Gap 7 BUN 16 Creatinine 0.82 Estimated GFR 70 L POC Glucose 112 H Random Glucose 147 H Calcium 8.8 Total Bilirubin 0.3 AST 15 ALT 40 Alkaline Phosphatase 106 Troponin I B-Natriuretic Peptide Total Protein 6.5 Albumin 3.0 L Urine Color Yellow Urine Clarity Clear Urine pH 5.0 Ur Specific [place] 1.023 Urine Protein Negative Urine Glucose (UA) Negative Urine Ketones Negative Urine Occult Blood Small H Urine Nitrate Negative Urine Bilirubin Negative Urine Urobilinogen Less than 2 Ur Leukocyte Esterase Negative Urine RBC 1 Urine WBC 1 Urine Mucus Few H Urine Yeast Moderate H 05/21/18 05/21/18 05/21/18 04:24 04:24 04:24 WBC 7.6 RBC 3.76 L Hgb 11.6 Hct 35.4 MCV 94.2 MCH 31.0 MCHC 32.9 RDW 14.8 Plt Count 288 MPV 7.3 Neut % (Auto) 75.3 H Lymph % (Auto) 17.2 [place] % (Auto) 6.9 Eos % (Auto) 0.2 Baso % (Auto) 0.4 Neut # (Auto) 5.7 Lymph # (Auto) 1.3 [place] # (Auto) 0.5 Eos # (Auto) 0.0 Baso # (Auto) 0.0 WBC Differential . Differential Comment Auto diff final APTT 26.4 D Sodium 146 H Potassium 4.7 Chloride 111 H Carbon Dioxide 25.4 Anion Gap 10 BUN 20 H Creatinine 0.97 Estimated GFR 58 L POC Glucose Random Glucose 145 H Calcium 9.1 Total Bilirubin 0.3 AST 36 ALT 40 Alkaline Phosphatase 106 Troponin I B-Natriuretic Peptide Total Protein 6.7 Albumin 2.8 L Urine Color Urine Clarity Urine pH Ur Specific [place] Urine Protein Urine Glucose (UA) Urine Ketones Urine Occult Blood Urine Nitrate Urine Bilirubin Urine Urobilinogen Ur Leukocyte Esterase Urine RBC Urine WBC Urine Mucus Urine Yeast 05/21/18 05/21/18 05/21/18 04:24 04:24 11:54 WBC RBC Hgb Hct MCV MCH MCHC RDW Plt Count MPV Neut % (Auto) Lymph % (Auto) [place] % (Auto) Eos % (Auto) Baso % (Auto) Neut # (Auto) Lymph # (Auto) [place] # (Auto) Eos # (Auto) Baso # (Auto) WBC Differential Differential Comment APTT Sodium Potassium Chloride Carbon Dioxide Anion Gap BUN Creatinine Estimated GFR POC Glucose 129 H Random Glucose Calcium Total Bilirubin AST ALT Alkaline Phosphatase Troponin I 0.04 D B-Natriuretic Peptide 208 H Total Protein Albumin Urine Color Urine Clarity Urine pH Ur Specific [place] Urine Protein Urine Glucose (UA) Urine Ketones Urine Occult Blood Urine Nitrate Urine Bilirubin Urine Urobilinogen Ur Leukocyte Esterase Urine RBC Urine WBC Urine Mucus Urine Yeast Microbiology 05/20/18 04:50 Catheterized Urine Urine Culture - Preliminary Yeast species 05/17/18 16:35 Blood - Peripheral Aerobic Blood Culture - Preliminary No growth in 4 days 05/17/18 16:35 Blood - Peripheral Anaerobic Blood Culture - Preliminary No growth in 4 days 05/17/18 16:30 Blood - Peripheral Aerobic Blood Culture - Preliminary No growth in 4 days 05/17/18 16:30 Blood - Peripheral Anaerobic Blood Culture - Preliminary No growth in 4 days Assessment and Plan - Assessment (1) Adenosquamous carcinoma of lung Code(s): C34.90 - Malignant neoplasm of unspecified part of unspecified bronchus or lung Status: Acute (2) Acute massive pulmonary embolism Code(s): I26.99 - Other pulmonary embolism without acute cor pulmonale Status : Acute - Plan IMPRESSION PULMONARY EMBOLISM VANIA OBESITY PLAN O2 NEEDED ANTICOAGULATION BIPAP/SLEEP (1) Adenosquamous carcinoma of lung Qualifiers: Laterality: right Qualified Code(s): C34.91 - Malignant neoplasm of unspecified part of right bronchus or lung
[2018-05-21] MEDS: Amiodarone 200 MG Tablet PO SCH (17:33)
[2018-05-21] MEDS: Chlorhexidine Gluconate 2% 1 Pack (2 Cloths) TOPICAL SCH (20:25)
[2018-05-22] MEDS: Piperacil/Tazo 3.375 GM Premix 50 ML IV.SIG SCH ×4 (05:01→21:01)
[2018-05-22] MEDS: Chlorhexidine Gluconate 2% 1 Pack (2 Cloths) TOPICAL SCH (05:02)
[2018-05-22] MEDS: Levothyroxine 150 MCG Tablet PO SCH ×2 (05:02→20:43)
[2018-05-22 07:47] LABS: Baso % (Auto) 0.5 % (0.0-2.0); Eos # (Auto) 0.1 th/mm3 (0.0-0.4); Eos % (Auto) 1.3 % (0.0-4.0); Hematocrit 35.3 % (35.0-46.0); Hemoglobin 11.6 gm/dL (11.6-15.3); Lymph # (Auto) 1.9 th/mm3 (1.0-4.8); Lymph % (Auto) 27.8 % (9.0-44.0); Mean Corpuscular HGB Conc 32.9 % (32.0-36.0); Mean Corpuscular Hemoglobin 30.7 pg (27.0-34.0); Mean Corpuscular Volume 93.4 fL (80.0-100.0); Mean Platelet Volume 6.8 fL (7.0-11.0); Mono # (Auto) 0.5 th/mm3 (0.0-0.9); Mono % (Auto) 6.5 % (0.0-8.0); Neut # (Auto) 4.4 th/mm3 (1.8-7.7); Neut % (Auto) 63.9 % (16.0-70.0); Platelet Count 332 th/mm3 (150-450); Red Blood Count 3.78 mil/mm3 (4.00-5.30); Red Cell Distribution Width 14.6 % (11.6-17.2); White Blood Count 6.9 th/mm3 (4.0-11.0)
[2018-05-22 08:15] LABS: Alanine Aminotransferase 31 U/L (10-53); Albumin 2.8 g/dL (3.4-5.0); Alkaline Phosphatase 100 U/L (45-117); Anion Gap 9 meq/L (5-15); Aspartate Aminotransferase 14 U/L (15-37); Blood Urea Nitrogen 23 mg/dL (7-18); Calcium 9.1 mg/dL (8.5-10.1); Carbon Dioxide 28.7 meq/L (21.0-32.0); Chloride 107 meq/L (98-107); Glomerular Filtration Rate 60 mL/min (>89); Glucose,Random 127 mg/dL (74-106); Potassium 3.9 meq/L (3.5-5.1); Sodium 145 meq/L (136-145); Total Protein 6.4 g/dL (6.4-8.2)
[2018-05-22] MEDS: Insulin NovoLOG Aspart Correctional Sugar Inj SQ SCH ×3 (08:48→20:42)
[2018-05-22] MEDS: ARIPiprazole 10 MG Tablet PO SCH (08:49)
[2018-05-22] MEDS: Amiodarone 200 MG Tablet PO SCH (08:49)
[2018-05-22] MEDS: Gabapentin 300 MG Capsule PO SCH (08:50)
[2018-05-22] MEDS: Senna/Docusate Sodium 8.6/50 MG Tablet PO SCH ×2 (08:51→20:45)
[2018-05-22] MEDS: Pantoprazole Inj 40 MG Vial IV.PUSH SCH (08:51)
[2018-05-22] MEDS: buPROPion 100 MG ER 12 HR Tablet PO SCH (08:51)
[2018-05-22] MEDS: MethylPREDNISolone Sod Succinate Inj 40 MG/ML Vial IV.PUSH SCH ×2 (08:51→20:45)
[2018-05-22] MEDS: Labetalol HCl Inj 100 MG/20 ML Vial IV.PUSH PRN (09:43)
--- NOTE | 2018-05-22 11:30 | XR ---
EXAM DATE: 05/22/2018 10:43 AM EDT AGE/SEX: 62 years / Female INDICATIONS: . Short of breath CLINICAL DATA: This is the patient's subsequent encounter. Patient reports that signs and symptoms h ave been present for 4 - 6 days and indicates a pain score of 0/10. MEDICAL/SURGICAL HISTORY: . COPD, CHF . Right upper lobectomy COMPARISON: C, CHEST 1V SINGLE AP, 05/20/2018. . FINDINGS: Right lung base opacity is present may be due to a combination of consolidation and or pleural effusi on. The left lung is clear. Heart and mediastinum are unremarkable. CONCLUSION: Right lung base opacity is present may be due to a combination of consolidation and or pleural effusi on. Electronically signed by: Blank Cameron MD 05/22/2018 11:29 AM EDT
--- NOTE | 2018-05-22 12:20 | ECHRPT ---
Indication: SHORTNESS OF BREATH CONCLUSIONS The left ventricular systolic function is normal with an estimated ejection fraction in the range of 60-65%. Normal left ventricular size. Wall thickness is normal. No regional wall motion abnormalities are pr esent. There is trace tricuspid valve regurgitation. The aortic valve is not well visualized. . No aortic valve stenosis or regurgitation. BP: / HR: Rhythm: Sinus MEASUREMENTS (Male / Female) Normal Values Technical Quality:Technically difficult study 2D ECHO LVOT Diameter 1.9 cm LV Ejection Fraction MOD 4C 63.8 % LV Ejection Fraction 4C AL 64.4 % M-MODE Aortic Root Diameter MM 2.2 cm LA Systolic Diameter MM 3.8 cm LA Ao Ratio MM 1.7 AV Cusp Separation MM 1.7 cm DOPPLER AV Peak Velocity 164.0 cm/s AV Peak Gradient 10.8 mmHg LVOT Peak Velocity 143.0 cm/s LVOT Peak Gradient 8.2 mmHg AV Area Cont Eq pk 2.5 cm MV Area PHT 4.3 cm Mitral E Point Velocity 83.4 cm/s Mitral A Point Velocity 82.9 cm/s Mitral E to A Ratio 1.0 LV E' Lateral Velocity 8.7 cm/s Mitral E to LV E' Lateral Ratio 9.6 LV E' Septal Velocity 6.9 cm/s Mitral E to LV E' Septal Ratio 12.1 TR Peak Velocity 155.0 cm/s TR Peak Gradient 9.6 mmHg Right Atrial Pressure 10.0 mmHg Pulmonary Artery Systolic Pressu 19.6 mmHg Right Ventricular Systolic Press 19.6 mmHg PV Peak Velocity 93.7 cm/s PV Peak Gradient 3.5 mmHg FINDINGS LEFT VENTRICLE The left ventricular systolic function is normal with an estimated ejection fraction in the range of 60-65%. Normal left ventricular size. Wall thickness is normal. No regional wall motion abnormalities are present. RIGHT VENTRICLE Normal right ventricular size and systolic function. LEFT ATRIUM The left atrial size is normal. RIGHT ATRIUM The right atrial size is normal. ATRIAL SEPTUM Normal atrial septal thickness without atrial level shunting by limited color doppler interrogation. AORTA The aortic root and proximal ascending aorta are normal in size on limited imaging. MITRAL VALVE Structurally normal mitral valve. Trace mitral valve regurgitation. AORTIC VALVE The aortic valve is not well visualized. . No aortic valve stenosis or regurgitation. TRICUSPID VALVE Structurally normal tricuspid valve. There is trace tricuspid valve regurgitation. Normal estimated pulmonary pressures. PULMONARY VALVE No pulmonary valve regurgitation or stenosis. VESSELS The inferior vena cava is normal in size. PERICARDIUM No pericardial effusion. Quinn Harris MD (Electronically Signed) Final Date:22 May 2018 12:19
--- NOTE | 2018-05-22 14:59 | P.PNONC ---
Subjective Interval history: Patient sitting up in chair, eating lunch. Her family is at the bedside. She has no complaints at this time. She states that her breathing has improved. She denies any pain. Objective Vital Signs/Intake & Output: Vital Signs 05/21/18 15:00 05/21/18 15:30 05/21/18 16:00 Temperature Pulse Rate 71 70 70 Respiratory Rate 24 19 25 H Blood Pressure 155/86 H 157/83 H 149/88 H Pulse Oximetry 93 L 94 L 95 05/21/18 16:30 05/21/18 17:00 05/21/18 17:30 Temperature Pulse Rate 72 72 71 Respiratory Rate 24 23 23 Blood Pressure 135/79 143/88 H 158/79 H Pulse Oximetry 94 L 94 L 95 05/21/18 18:00 05/21/18 18:01 05/21/18 18:30 Temperature Pulse Rate 74 75 75 Respiratory Rate 40 H 24 26 H Blood Pressure 165/73 H 150/84 H Pulse Oximetry 93 L 94 L 95 05/21/18 19:00 05/21/18 19:30 05/21/18 20:00 Temperature 98.0 F Pulse Rate 73 72 72 Respiratory Rate 30 H 24 23 Blood Pressure 150/73 H 151/76 H 148/83 H Pulse Oximetry 95 95 95 05/21/18 20:30 05/21/18 20:40 05/21/18 21:00 Temperature Pulse Rate 69 68 69 Respiratory Rate 23 16 23 Blood Pressure 151/84 H 157/79 H Pulse Oximetry 95 96 95 05/21/18 21:30 05/21/18 22:00 05/21/18 22:30 Temperature Pulse Rate 69 69 72 Respiratory Rate 21 18 21 Blood Pressure 157/79 H 168/86 H 155/85 H Pulse Oximetry 93 L 93 L 93 L 05/21/18 23:00 05/21/18 23:30 05/21/18 23:48 Temperature Pulse Rate 73 71 71 Respiratory Rate 23 22 22 Blood Pressure 145/86 H 147/79 H Pulse Oximetry 92 L 92 L 05/22/18 00:00 05/22/18 00:01 05/22/18 00:30 Temperature 98.4 F Pulse Rate 72 69 Respiratory Rate 19 20 Blood Pressure 155/74 H 154/82 H Pulse Oximetry 100 100 100 05/22/18 01:00 05/22/18 01:30 05/22/18 02:00 Temperature Pulse Rate 66 66 65 Respiratory Rate 19 19 18 Blood Pressure 132/78 162/89 H 139/81 Pulse Oximetry 99 99 99 05/22/18 02:30 05/22/18 03:00 05/22/18 03:30 Temperature Pulse Rate 64 63 64 Respiratory Rate 18 18 16 Blood Pressure 133/72 134/77 154/86 H Pulse Oximetry 99 100 99 05/22/18 03:51 05/22/18 04:00 05/22/18 04:30 Temperature 97.8 F Pulse Rate 64 63 64 Respiratory Rate 17 18 18 Blood Pressure 153/82 H 137/75 Pulse Oximetry 98 100 100 05/22/18 05:00 05/22/18 05:30 05/22/18 06:00 Temperature Pulse Rate 62 61 66 Respiratory Rate 17 17 18 Blood Pressure 139/79 152/82 H 168/88 H Pulse Oximetry 100 100 100 05/22/18 06:30 05/22/18 07:00 05/22/18 07:01 Temperature Pulse Rate 63 73 66 Respiratory Rate 17 26 H 19 Blood Pressure 141/76 H 144/85 H Pulse Oximetry 100 100 100 05/22/18 07:30 05/22/18 08:00 05/22/18 08:04 Temperature 98.4 F Pulse Rate 66 67 67 Respiratory Rate 18 26 H 21 Blood Pressure 133/79 142/84 H Pulse Oximetry 100 98 97 05/22/18 08:30 05/22/18 08:44 05/22/18 08:45 Temperature Pulse Rate 66 66 Respiratory Rate 19 18 Blood Pressure 147/84 H Pulse Oximetry 96 95 05/22/18 09:00 05/22/18 09:29 05/22/18 09:30 Temperature Pulse Rate 73 70 69 Respiratory Rate 51 H 26 H 25 H Blood Pressure 182/91 H 171/84 H 169/84 H Pulse Oximetry 94 L 95 96 05/22/18 10:00 05/22/18 10:30 05/22/18 11:00 Temperature Pulse Rate 59 L 64 67 Respiratory Rate 23 27 H 26 H Blood Pressure 149/70 H 149/70 H 167/88 H Pulse Oximetry 92 L 91 L 90 L 05/22/18 11:30 05/22/18 11:38 07/16/18 11:59 Temperature Pulse Rate 67 65 90 Respiratory Rate 24 22 18 Blood Pressure 139/67 139/67 Pulse Oximetry 95 96 Intake & Output 05/21/18 05/22/18 05/22/18 18:59 06:59 18:59 Intake Total 50 / 50 580 / 580 100 / 100 Output Total 4900 / 4900 1600 / 1600 Balance -4850 / -4850 -1020 / -1020 100 / 100 Weight 138.2 kg Intake: IV 50 / 50 100 / 100 100 / 100 Zosyn 3.375 GM Premix 50 ML @ 50 / 50 100 / 100 100 / 100 100 mls/hr IV.SIG Q6H ARABELLA Rx#: [id number] Oral 480 / 480 Output: Urine Amount (Catheter) 4900 / 4900 1600 / 1600 Indwelling Urethral Catheter 4900 / 4900 1600 / 1600 Other: Date of Last Bowel Movement 05/17/18 05/20/18 05/20/18 Result Diagrams: 05/22/18 07:16 05/22/18 07:16 Laboratory Results: Laboratory Results - last 24 hr 05/21/18 05/21/18 05/22/18 16:32 20:23 07:16 WBC 6.9 RBC 3.78 L Hgb 11.6 Hct 35.3 MCV 93.4 MCH 30.7 MCHC 32.9 RDW 14.6 Plt Count 332 MPV 6.8 L Neut % (Auto) 63.9 Lymph % (Auto) 27.8 [place] % (Auto) 6.5 Eos % (Auto) 1.3 Baso % (Auto) 0.5 Neut # (Auto) 4.4 Lymph # (Auto) 1.9 [place] # (Auto) 0.5 Eos # (Auto) 0.1 Baso # (Auto) 0.0 WBC Differential . Differential Comment Auto diff final Sodium Potassium Chloride Carbon Dioxide Anion Gap BUN Creatinine Estimated GFR POC Glucose 146 H 111 H Random Glucose Calcium Total Bilirubin AST ALT Alkaline Phosphatase Total Protein Albumin 05/22/18 05/22/18 07:16 11:13 WBC RBC Hgb Hct MCV MCH MCHC RDW Plt Count MPV Neut % (Auto) Lymph % (Auto) [place] % (Auto) Eos % (Auto) Baso % (Auto) Neut # (Auto) Lymph # (Auto) [place] # (Auto) Eos # (Auto) Baso # (Auto) WBC Differential Differential Comment Sodium 145 Potassium 3.9 D Chloride 107 Carbon Dioxide 28.7 Anion Gap 9 BUN 23 H Creatinine 0.94 Estimated GFR 60 L POC Glucose 121 H Random Glucose 127 H Calcium 9.1 Total Bilirubin 0.2 AST 14 L ALT 31 Alkaline Phosphatase 100 Total Protein 6.4 Albumin 2.8 L Culture Results: Microbiology 05/17/18 16:35 Aerobic Blood Culture - Final Blood - Peripheral No growth in 5 days Anaerobic Blood Culture - Final No growth in 5 days 05/17/18 16:30 Aerobic Blood Culture - Final Blood - Peripheral No growth in 5 days Anaerobic Blood Culture - Final No growth in 5 days 05/20/18 04:50 Urine Culture - Final Catheterized Urine Becky glabrata Imaging Studies: Impressions Chest X-Ray 05/22/18 00:00 CONCLUSION: Right lung base opacity is present may be due to a combination of consolidation and or pleural effusion. Medications: Active Medications Generic Name Dose Route Start Last Admin Trade Name Freq PRN Reason Stop Dose Admin Acetaminophen 650 mg 05/17/18 17:01 05/19/18 09:18 Tylenol PO 650 mg Q6H PRN Administration PAIN 1-10 AND/OR FEVER >101F Amiodarone HCl 400 mg 05/21/18 15:00 05/22/18 08:49 Cordarone PO 400 mg DAILY ARABELLA Administration Apixaban 10 mg 05/20/18 13:30 05/22/18 08:50 Eliquis PO 05/26/18 21:01 10 mg BID ARABELLA Administration Aripiprazole 10 mg 05/19/18 11:00 05/22/18 08:49 Abilify PO 10 mg DAILY ARABELLA Administration Atorvastatin Calcium 80 mg 05/20/18 09:00 05/22/18 08:50 Lipitor PO 80 mg DAILY ARABELLA Administration Bupropion HCl 200 mg 05/20/18 09:00 05/22/18 08:51 Wellbutrin Sr PO 200 mg DAILY ARABELLA Administration Chlorhexidine Gluconate 3 pack 05/18/18 04:00 05/22/18 05:02 Chlorhexidine 2% Cloth TOPICAL 05/23/18 03:59 3 pack DAILY@0400 ARABELLA Administration Escitalopram Oxalate 20 mg 05/19/18 10:00 05/22/18 08:50 Lexapro PO 20 mg DAILY ARABELLA Administration Fluconazole 400 mg 05/22/18 11:00 05/22/18 11:41 Diflucan PO 05/26/18 09:01 400 mg DAILY ARABELLA Administration Gabapentin 600 mg 05/20/18 09:00 05/22/18 08:50 Neurontin PO 600 mg DAILY ARABELLA Administration Piperacillin/Tazobactam/Dextrose 50 mls @ 100 mls/hr 05/17/18 22:00 05/22/18 11:43 Zosyn 3.375 Gm Premix IV.SIG Infused Q6H ARABELLA Infusion Insulin Aspart 0 unit 05/19/18 21:00 05/22/18 11:42 Novolog Insulin Suppl Scale Inj SQ Not Given ACHS [facility] Protocol Ipratropium [place] 0.5 mg 05/18/18 16:00 05/22/18 11:59 Atrovent Neb NEB 0.5 mg Q4HR NEB ARABELLA Administration Labetalol HCl 10 mg 05/19/18 09:28 05/22/18 09:43 Trandate Inj IV.PUSH 10 mg Q2H PRN Administration SEE DOSE INSTRUCTIONS Levothyroxine Sodium 150 mcg 05/20/18 06:00 05/22/18 05:02 Synthroid PO 150 mcg DAILY@0600 ARABELLA Administration Methylprednisolone Sodium Succinate 40 mg 05/19/18 21:00 05/22/18 08:51 Solumedrol Inj IV.PUSH 40 mg Q12HR ARABELLA Administration Senna/Docusate Sodium 1 tab 05/17/18 21:00 05/22/18 08:51 Nancy-Colace PO 1 tab BID ARABELLA Administration Sodium Chloride 2 ml 05/17/18 21:00 05/22/18 08:50 Ns Flush IV.FLUSH 2 ml BID ARABELLA Administration Sodium Chloride 2 ml 05/17/18 17:01 05/22/18 08:50 Ns Flush IV.FLUSH 2 ml PRN PRN Administration FLUSH AFTER USING IV ACCESS Valsartan 80 mg 05/19/18 11:00 05/22/18 08:50 Diovan PO 80 mg DAILY ARABELLA Administration Objective Remarks: GENERAL: Well-nourished, well-developed middle-aged female patient. Sitting in chair, eating lunch in no distress. SKIN: Cheeks flushed. Warm and dry. HEAD: Normocephalic. EYES: No scleral icterus. No injection or drainage. NECK: Supple, trachea midline. CARDIOVASCULAR: Regular rate and rhythm without murmurs. RESPIRATORY: Posterior breath sounds clear, equal bilaterally. No accessory muscle use. GASTROINTESTINAL: Abdomen soft, non-tender, nondistended. EXTREMITIES: No cyanosis, or edema. MUSCULOSKELETAL: Adequate muscle tone. NEUROLOGICAL: No obvious focal deficit. Awake, alert, and oriented x3. PSYCHIATRIC: Appropriate mood and affect; insight and judgment normal. Assessment/Plan (1) Acute massive pulmonary embolism Code(s): I26.99 - Other pulmonary embolism without acute cor pulmonale Status : Acute (2) Adenosquamous carcinoma of lung Code(s): C34.90 - Malignant neoplasm of unspecified part of unspecified bronchus or lung Status: Acute - Plan This is a 62-year-old female patient who was admitted to the hospital with a massive pulmonary embolism associated with right heart dysfunction. Patient was appropriate treated with thrombolytic therapy; chemical thrombolysis with TPA infusion on the day of admission. Now on Eliquis loading dose. Pulmonary embolism was thought to be provoked by recent surgery and postop immobility. She will require therapeutic anticoagulation at the time of discharge. 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 Surgery was performed in late February 2018; she was found to have T1c N0 M0; stage I disease. 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 Plan: 1. Pulmonary embolism. Continue anticoagulation with loading doses of Eliquis. Continue to monitor for bleeding. 2. Status post right-sided thoracotomy and right upper lobectomy, February 2018, for adenosquamous carcinoma. She will be a candidate for observations/ surveillance treatment. 3. Continue supportive care. 4. Monitor for bleeding. (2) Adenosquamous carcinoma of lung Qualifiers: Laterality: right Qualified Code(s): C34.91 - Malignant neoplasm of unspecified part of right bronchus or lung
--- NOTE | 2018-05-22 17:00 | P.PNCC ---
Subjective Subjective Remarks/Hospital Course: 05/17: 62yF with history of COPD and lung adenocarcinoma s/p RUL lobectomy in 2017 who presented with 1 day history of acute SOB. presented to [facility] with acute hypoxemia and hypotension. CT pulmonary angiogram demonstrates massive pulmonary embolism with evidence of right heart acute dysfunction and reflux of contrast into the hepatic veins suggestive of acute RV dysfunction. due to hemodynamic instability, given iv systemic TPA. placed on BiPAP and emergently transported to [facility] ICU. on my evaluation, patient remains dyspneic on BiPAP. unable to talk in full sentences. ROS limited, but negative for chest pain, fever, chills, cough, n/v/c/d/abd pain. + SOB. 05/18: Tolerating nasal cannula since this morning. No hypotension overnight. Went into A. fib with RVR. Denies any chest pain or worsening shortness of breath. Had some palpitations earlier. Does not appear to be in any acute distress. 05/19: Complaining of shortness of breath and headache. Blood pressure 170 systolic currently. Ordered labetalol IV. Also initiating IV Solu-Medrol to see if her breathing response. Remains on nasal cannula. 05/20: On high flow nasal cannula. Chest x-ray this morning shows right basilar atelectasis versus consolidation and possible fluid overload. Patient remains on IV Zosyn. He is resting comfortably in bed flow O2 requirement remains high. 05/21: On high flow nasal cannula. Initiated Lasix yesterday for mobilizing fluid. This morning appears comfortable on high flow nasal cannula. Denies any chest pain currently. 05/22: Patient on 4 L nasal cannula. Resting comfortably. Objective Vital Signs / I&O: Vital Signs 05/21/18 17:00 05/21/18 17:30 05/21/18 18:00 Temperature Pulse Rate 72 71 74 Respiratory Rate 23 23 40 H Blood Pressure 143/88 H 158/79 H Pulse Oximetry 94 L 95 93 L 05/21/18 18:01 05/21/18 18:30 05/21/18 19:00 Temperature Pulse Rate 75 75 73 Respiratory Rate 24 26 H 30 H Blood Pressure 165/73 H 150/84 H 150/73 H Pulse Oximetry 94 L 95 95 05/21/18 19:30 05/21/18 20:00 05/21/18 20:30 Temperature 98.0 F Pulse Rate 72 72 69 Respiratory Rate 24 23 23 Blood Pressure 151/76 H 148/83 H 151/84 H Pulse Oximetry 95 95 95 05/21/18 20:40 05/21/18 21:00 05/21/18 21:30 Temperature Pulse Rate 68 69 69 Respiratory Rate 16 23 21 Blood Pressure 157/79 H 157/79 H Pulse Oximetry 96 95 93 L 05/21/18 22:00 05/21/18 22:30 05/21/18 23:00 Temperature Pulse Rate 69 72 73 Respiratory Rate 18 21 23 Blood Pressure 168/86 H 155/85 H 145/86 H Pulse Oximetry 93 L 93 L 92 L 05/21/18 23:30 05/21/18 23:48 05/22/18 00:00 Temperature 98.4 F Pulse Rate 71 71 72 Respiratory Rate 22 22 19 Blood Pressure 147/79 H 155/74 H Pulse Oximetry 92 L 100 05/22/18 00:01 05/22/18 00:30 05/22/18 01:00 Temperature Pulse Rate 69 66 Respiratory Rate 20 19 Blood Pressure 154/82 H 132/78 Pulse Oximetry 100 100 99 05/22/18 01:30 05/22/18 02:00 05/22/18 02:30 Temperature Pulse Rate 66 65 64 Respiratory Rate 19 18 18 Blood Pressure 162/89 H 139/81 133/72 Pulse Oximetry 99 99 99 05/22/18 03:00 05/22/18 03:30 05/22/18 03:51 Temperature Pulse Rate 63 64 64 Respiratory Rate 18 16 17 Blood Pressure 134/77 154/86 H Pulse Oximetry 100 99 98 05/22/18 04:00 05/22/18 04:30 05/22/18 05:00 Temperature 97.8 F Pulse Rate 63 64 62 Respiratory Rate 18 18 17 Blood Pressure 153/82 H 137/75 139/79 Pulse Oximetry 100 100 100 05/22/18 05:30 05/22/18 06:00 05/22/18 06:30 Temperature Pulse Rate 61 66 63 Respiratory Rate 17 18 17 Blood Pressure 152/82 H 168/88 H 141/76 H Pulse Oximetry 100 100 100 05/22/18 07:00 05/22/18 07:01 05/22/18 07:30 Temperature Pulse Rate 73 66 66 Respiratory Rate 26 H 19 18 Blood Pressure 144/85 H 133/79 Pulse Oximetry 100 100 100 05/22/18 08:00 05/22/18 08:04 05/22/18 08:30 Temperature 98.4 F Pulse Rate 67 67 66 Respiratory Rate 26 H 21 19 Blood Pressure 142/84 H 147/84 H Pulse Oximetry 98 97 96 05/22/18 08:44 05/22/18 08:45 05/22/18 09:00 Temperature Pulse Rate 66 73 Respiratory Rate 18 51 H Blood Pressure 182/91 H Pulse Oximetry 95 94 L 05/22/18 09:29 05/22/18 09:30 05/22/18 10:00 Temperature Pulse Rate 70 69 59 L Respiratory Rate 26 H 25 H 23 Blood Pressure 171/84 H 169/84 H 149/70 H Pulse Oximetry 95 96 92 L 05/22/18 10:30 05/22/18 11:00 05/22/18 11:30 Temperature Pulse Rate 64 67 67 Respiratory Rate 27 H 26 H 24 Blood Pressure 149/70 H 167/88 H 139/67 Pulse Oximetry 91 L 90 L 95 05/22/18 11:38 05/22/18 11:59 05/22/18 12:00 Temperature 98 F Pulse Rate 65 90 67 Respiratory Rate 22 18 25 H Blood Pressure 139/67 152/76 H Pulse Oximetry 96 97 05/22/18 12:30 05/22/18 13:00 05/22/18 13:30 Temperature Pulse Rate 69 68 67 Respiratory Rate 23 20 23 Blood Pressure 153/74 H 153/74 H 151/76 H Pulse Oximetry 96 96 96 05/22/18 14:00 05/22/18 14:30 05/22/18 15:00 Temperature Pulse Rate 71 69 73 Respiratory Rate 23 53 H 23 Blood Pressure 155/81 H 163/84 H 170/81 H Pulse Oximetry 94 L 94 L 91 L 05/22/18 15:30 05/22/18 16:00 05/22/18 16:01 Temperature 98 F Pulse Rate 69 67 60 Respiratory Rate 28 H 18 Blood Pressure 162/77 H 154/86 H Pulse Oximetry 93 L 94 L Intake & Output 05/21/18 05/22/18 05/22/18 18:59 06:59 18:59 Intake Total 50 / 50 580 / 580 100 / 100 Output Total 4900 / 4900 1600 / 1600 Balance -4850 / -4850 -1020 / -1020 100 / 100 Weight 138.2 kg Intake: IV 50 / 50 100 / 100 100 / 100 Zosyn 3.375 GM Premix 50 ML @ 50 / 50 100 / 100 100 / 100 100 mls/hr IV.SIG Q6H ARABELLA Rx#: [id number] Oral 480 / 480 Output: Urine Amount (Catheter) 4900 / 4900 1600 / 1600 Indwelling Urethral Catheter 4900 / 4900 1600 / 1600 Other: Date of Last Bowel Movement 05/17/18 05/20/18 05/20/18 Result Diagrams: 05/22/18 07:16 05/22/18 07:16 Imaging: Chest X-Ray 05/17/18 15:20 CONCLUSION: Cardiomegaly. No acute pulmonary disease. Postsurgical changes as above. Possible left lung nodule. CT scan is recommended for further evaluation if clinically indicated. Chest CTA 05/17/18 16:54 CONCLUSION: 1. Large bilateral pulmonary emboli as described above. 2. Findings have been discussed with Dr. Holliday on today's date. Chest X-Ray 05/20/18 08:00 CONCLUSION: Progressive volume loss identified within the right hemithorax consistent with atelectasis versus progressive right lower lobe airspace consolidation. Interval increase size of the cardiac silhouette and progressive engorgement of the pulmonary vessels concerning for congestive heart failure versus volume overload. Recommend upright PA lateral views the chest when clinically able. Chest X-Ray 05/22/18 00:00 CONCLUSION: Right lung base opacity is present may be due to a combination of consolidation and or pleural effusion. Objective Remarks: HEENT/Neuro: No pallor or icterus, tongue moist, LJ, Awake alert oriented 3 , nonfocal grossly, moving all 4 extremities Neck: No JVD Chest/pulmonary: On 4L nasal cannula, CTA bilaterally, scattered rhonchi Cardiovascular: S1-S2 irregularly irregular no gallop or murmur GI/abdomen: Soft, nontender, bowel sounds present Extremities: Warm bilaterally, no edema Assessment and Plan - Assessment and Plan Plan: Assessment: 62yF with massive pulmonary embolism with associated right ventricular failure, cardiogenic shock, multiorgan failure, acute hypoxemia. very critically ill and high risk for further decompensation and . s/p emergent systemic TPA administration. Active Problems: Massive pulmonary embolism Cardiogenic Shock (resolved) Right Ventricular Failure Type II NSTEMI secondary to demand ischemia from PE RV strain Congestive Hepatopathy Acute kidney injury secondary to cardiogenic shock Hypernatremia Hyperglycemia of Critical illness Stress-induced leukocytosis Lactic Acidosis Hypertension Acute respiratory failure Possible pneumonia Plan: Follow neuro status CVS: Status post thrombolysis for massive PE. Switch from heparin to Eliquis. Maintaining blood pressure currently. f/u 2d echo: CT evidence of RV failure with reflux of contrast into hepatic veins and RV >> LV cavity Amiodarone switched to p.o. for A. fib with RVR. Digoxin 0.5 mg IV x 1. Will use Lopressor if needed for rate control provided blood pressure tolerates. Restarted losartan, labetalol as needed for hypertension. Stopped IV fluids. Lasix 20mg IV x 1 dose 05/20, lasix 40mg IV on 05/21 2D echo with normal LV and RV function. Pulmonary Continue nasal cannula. bronchodilators as needed. Solumedrol GI/liver Advance p.o. diet as tolerated trend LFTs ID/ Heme: Possible pneumonia on chest x-ray. remains on Zosyn for empiric antibiotic coverage Off heparin drip. Started on Eliquis for full anticoagulation on 05/20. ( Previously discussed pros and cons of Coumadin versus Eliquis/ other oral anticoagulants with patient and she prefers Eliquis as she has a very difficult stick for blood draws which would be required for INR testing if Coumadin were used.) Hematology consult noted Endocrine: Watch for hyperglycemia, SSI for glycemic control if needed Prophylaxis: PPI/SCDs. On full anticoagulation. Critical care will be signing off. Transfer to hospitalist service for further medical management. Transfer out of ICU. Further recommendations per pulmonary and hematology.
--- NOTE | 2018-05-22 17:17 | P.PN ---
Subjective Interval history: ALERT NO DISTRESS READY TO GO TO [facility] Physical Exam Vital signs: Vital Signs 05/21/18 17:30 05/21/18 18:00 05/21/18 18:01 Temperature Pulse Rate 71 74 75 Respiratory Rate 23 40 H 24 Blood Pressure 158/79 H 165/73 H Pulse Oximetry 95 93 L 94 L 05/21/18 18:30 05/21/18 19:00 05/21/18 19:30 Temperature Pulse Rate 75 73 72 Respiratory Rate 26 H 30 H 24 Blood Pressure 150/84 H 150/73 H 151/76 H Pulse Oximetry 95 95 95 05/21/18 20:00 05/21/18 20:30 05/21/18 20:40 Temperature 98.0 F Pulse Rate 72 69 68 Respiratory Rate 23 23 16 Blood Pressure 148/83 H 151/84 H Pulse Oximetry 95 95 96 05/21/18 21:00 05/21/18 21:30 05/21/18 22:00 Temperature Pulse Rate 69 69 69 Respiratory Rate 23 21 18 Blood Pressure 157/79 H 157/79 H 168/86 H Pulse Oximetry 95 93 L 93 L 05/21/18 22:30 05/21/18 23:00 05/21/18 23:30 Temperature Pulse Rate 72 73 71 Respiratory Rate 21 23 22 Blood Pressure 155/85 H 145/86 H 147/79 H Pulse Oximetry 93 L 92 L 92 L 05/21/18 23:48 05/22/18 00:00 05/22/18 00:01 Temperature 98.4 F Pulse Rate 71 72 Respiratory Rate 22 19 Blood Pressure 155/74 H Pulse Oximetry 100 100 05/22/18 00:30 05/22/18 01:00 05/22/18 01:30 Temperature Pulse Rate 69 66 66 Respiratory Rate 20 19 19 Blood Pressure 154/82 H 132/78 162/89 H Pulse Oximetry 100 99 99 05/22/18 02:00 05/22/18 02:30 05/22/18 03:00 Temperature Pulse Rate 65 64 63 Respiratory Rate 18 18 18 Blood Pressure 139/81 133/72 134/77 Pulse Oximetry 99 99 100 05/22/18 03:30 05/22/18 03:51 05/22/18 04:00 Temperature 97.8 F Pulse Rate 64 64 63 Respiratory Rate 16 17 18 Blood Pressure 154/86 H 153/82 H Pulse Oximetry 99 98 100 05/22/18 04:30 05/22/18 05:00 05/22/18 05:30 Temperature Pulse Rate 64 62 61 Respiratory Rate 18 17 17 Blood Pressure 137/75 139/79 152/82 H Pulse Oximetry 100 100 100 05/22/18 06:00 05/22/18 06:30 05/22/18 07:00 Temperature Pulse Rate 66 63 73 Respiratory Rate 18 17 26 H Blood Pressure 168/88 H 141/76 H Pulse Oximetry 100 100 100 05/22/18 07:01 05/22/18 07:30 05/22/18 08:00 Temperature 98.4 F Pulse Rate 66 66 67 Respiratory Rate 19 18 26 H Blood Pressure 144/85 H 133/79 Pulse Oximetry 100 100 98 05/22/18 08:04 05/22/18 08:30 05/22/18 08:44 Temperature Pulse Rate 67 66 66 Respiratory Rate 21 19 18 Blood Pressure 142/84 H 147/84 H Pulse Oximetry 97 96 05/22/18 08:45 05/22/18 09:00 05/22/18 09:29 Temperature Pulse Rate 73 70 Respiratory Rate 51 H 26 H Blood Pressure 182/91 H 171/84 H Pulse Oximetry 95 94 L 95 05/22/18 09:30 05/22/18 10:00 05/22/18 10:30 Temperature Pulse Rate 69 59 L 64 Respiratory Rate 25 H 23 27 H Blood Pressure 169/84 H 149/70 H 149/70 H Pulse Oximetry 96 92 L 91 L 05/22/18 11:00 05/22/18 11:30 05/22/18 11:38 Temperature Pulse Rate 67 67 65 Respiratory Rate 26 H 24 22 Blood Pressure 167/88 H 139/67 139/67 Pulse Oximetry 90 L 95 96 05/22/18 11:59 05/22/18 12:00 05/22/18 12:30 Temperature 98 F Pulse Rate 90 67 69 Respiratory Rate 18 25 H 23 Blood Pressure 152/76 H 153/74 H Pulse Oximetry 97 96 05/22/18 13:00 05/22/18 13:30 05/22/18 14:00 Temperature Pulse Rate 68 67 71 Respiratory Rate 20 23 23 Blood Pressure 153/74 H 151/76 H 155/81 H Pulse Oximetry 96 96 94 L 07/16/18 14:30 05/22/18 15:00 05/22/18 15:30 Temperature Pulse Rate 69 73 69 Respiratory Rate 53 H 23 28 H Blood Pressure 163/84 H 170/81 H 162/77 H Pulse Oximetry 94 L 91 L 93 L 05/22/18 16:00 05/22/18 16:01 05/22/18 17:00 Temperature 98 F Pulse Rate 67 60 66 Respiratory Rate 18 Blood Pressure 154/86 H 171/81 H Pulse Oximetry 94 L 96 Intake & Output 05/21/18 05/22/18 05/22/18 18:59 06:59 18:59 Intake Total 50 / 50 580 / 580 100 / 100 Output Total 4900 / 4900 1600 / 1600 Balance -4850 / -4850 -1020 / -1020 100 / 100 Weight 138.2 kg Intake: IV 50 / 50 100 / 100 100 / 100 Zosyn 3.375 GM Premix 50 ML @ 50 / 50 100 / 100 100 / 100 100 mls/hr IV.SIG Q6H ARABELLA Rx#: [id number] Oral 480 / 480 Output: Urine Amount (Catheter) 4900 / 4900 1600 / 1600 Indwelling Urethral Catheter 4900 / 4900 1600 / 1600 Other: Date of Last Bowel Movement 05/17/18 05/20/18 05/20/18 - Routine HEENT Exam Head: Present: normocephalic Eye: Present: EOMI ENT: Present: mucous membranes moist - Routine Neck Exam Present: supple - Routine Cardiovascular Exam Present: RRR - Routine Abdominal Exam Present: soft - Urinary Catheter Management Indwelling Urethral Catheter Cath placed during this visit: no Results - Labs CBC & Chem 7: 05/22/18 07:16 05/22/18 07:16 Laboratory Results - last 24 hr 05/21/18 05/22/18 05/22/18 20:23 07:16 07:16 WBC 6.9 RBC 3.78 L Hgb 11.6 Hct 35.3 MCV 93.4 MCH 30.7 MCHC 32.9 RDW 14.6 Plt Count 332 MPV 6.8 L Neut % (Auto) 63.9 Lymph % (Auto) 27.8 [place] % (Auto) 6.5 Eos % (Auto) 1.3 Baso % (Auto) 0.5 Neut # (Auto) 4.4 Lymph # (Auto) 1.9 [place] # (Auto) 0.5 Eos # (Auto) 0.1 Baso # (Auto) 0.0 WBC Differential . Differential Comment Auto diff final Sodium 145 Potassium 3.9 D Chloride 107 Carbon Dioxide 28.7 Anion Gap 9 BUN 23 H Creatinine 0.94 Estimated GFR 60 L POC Glucose 111 H Random Glucose 127 H Calcium 9.1 Total Bilirubin 0.2 AST 14 L ALT 31 Alkaline Phosphatase 100 Total Protein 6.4 Albumin 2.8 L 05/22/18 05/22/18 11:13 16:15 WBC RBC Hgb Hct MCV MCH MCHC RDW Plt Count MPV Neut % (Auto) Lymph % (Auto) [place] % (Auto) Eos % (Auto) Baso % (Auto) Neut # (Auto) Lymph # (Auto) [place] # (Auto) Eos # (Auto) Baso # (Auto) WBC Differential Differential Comment Sodium Potassium Chloride Carbon Dioxide Anion Gap BUN Creatinine Estimated GFR POC Glucose 121 H 98 Random Glucose Calcium Total Bilirubin AST ALT Alkaline Phosphatase Total Protein Albumin Microbiology 05/17/18 16:35 Blood - Peripheral Aerobic Blood Culture - Final No growth in 5 days 05/17/18 16:35 Blood - Peripheral Anaerobic Blood Culture - Final No growth in 5 days 05/17/18 16:30 Blood - Peripheral Aerobic Blood Culture - Final No growth in 5 days 05/17/18 16:30 Blood - Peripheral Anaerobic Blood Culture - Final No growth in 5 days 05/20/18 04:50 Catheterized Urine Urine Culture - Final Becky glabrata - Imaging Impressions Chest X-Ray 05/22/18 00:00 CONCLUSION: Right lung base opacity is present may be due to a combination of consolidation and or pleural effusion. 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
[2018-05-23] MEDS: Piperacil/Tazo 3.375 GM Premix 50 ML IV.SIG SCH ×2 (04:38→10:04)
[2018-05-23] MEDS: Insulin NovoLOG Aspart Correctional Sugar Inj SQ SCH ×2 (04:39→10:00)
[2018-05-23] MEDS: Levothyroxine 150 MCG Tablet PO SCH (05:37)
[2018-05-23] MEDS: ARIPiprazole 10 MG Tablet PO SCH (08:48)
[2018-05-23] MEDS: buPROPion 100 MG ER 12 HR Tablet PO SCH (08:49)
[2018-05-23] MEDS: Gabapentin 300 MG Capsule PO SCH (08:51)
[2018-05-23] MEDS: Senna/Docusate Sodium 8.6/50 MG Tablet PO SCH (08:51)
[2018-05-23] MEDS: Amiodarone 200 MG Tablet PO SCH (08:51)
[2018-05-23] MEDS: MethylPREDNISolone Sod Succinate Inj 40 MG/ML Vial IV.PUSH SCH (08:52)
--- NOTE | 2018-05-23 09:03 | P.DCO ---
- Diagnosis (1) Adenosquamous carcinoma of lung - Physical Therapy Order: Evaluate and treat, Improve ambulation, Strength and gait training - Home Health Nursing Order: Medical education, Signs/symptoms of disease process, Oxygen administration education, Medication education-adverse effect, Nursing assessment with vital signs - Certification I have seen patient Shikha Reinoso on 05/23/18. My clinical findings support the need for the requested home health care services because: Limited mobility due to disease progression, Patient has SOB, Deconditioned with increased weakness, Limited ability to care for self, Need for psychosocial assistance, High risk of falls, Infection with risk of complications I certify that my clinical findings support that this patient is homebound because: Unsteady gait/balance, Unsafe to leave home unassisted, Need for psychosocial assistance, Non-ambulatory: confined to bed or chair, Unable to use public transportation (1) Adenosquamous carcinoma of lung Qualifiers: Laterality: right Qualified Code(s): C34.91 - Malignant neoplasm of unspecified part of right bronchus or lung
--- NOTE | 2018-05-23 09:23 | P.DS ---
Date of admission: 05/17/18 17:03 Primary care physician: No Primary Care Physician Brief History from admission: 62yF with history of COPD and lung adenocarcinoma s/p RUL lobectomy in 02/2018 who presented with 1 day history of acute SOB. presented to [facility] with acute hypoxemia and hypotension. CT pulmonary angiogram demonstrates massive pulmonary embolism with evidence of right heart acute dysfunction and reflux of contrast into the hepatic veins suggestive of acute RV dysfunction. due to hemodynamic instability, given iv systemic TPA. placed on BiPAP and emergently transported to [facility] ICU. on my evaluation, patient remains dyspneic on BiPAP. unable to talk in full sentences. ROS limited, but negative for chest pain, fever, chills, cough, n/v/c/d/abd pain. + SOB. DS: Diagnosis - Discharge Diagnosis (1) Adenosquamous carcinoma of lung Status: Acute (2) Acute massive pulmonary embolism Status: Acute DS: Medications - Discharge Medications Prescriptions: apixaban [Eliquis] 5 mg PO BID 30 Days #64 tab lisinopril 10 mg PO DAILY #30 tab metoprolol tartrate 12.5 mg PO BID #60 tab DS: Summary Hospital Course: Ms. 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 She was diagnosed with massive pulmonary embolism with right heart acute dysfunction. Patient received IV systemic TPA and was placed on BiPAP. Patient was managed in the ICU. During her ICU stay she went into atrial fibrillation with RVR. Patient was given amiodarone to control her atrial fibrillation. Clinically she improved in the next several days. On 05/22/2018 patient was on 3-4 L of oxygen and was subsequently transferred to the medical floor. Patient has home oxygen which she uses with BiPAP at night. Will arrange home health upon discharge. Even though patient was started on amiodarone in the ICU, she uses quite a few psychotropic medications and due to significant interaction, will not continue amiodarone. Instead we will continue beta-kurt to control heart rate as well as apixaban for anticoagulation. - Time Spent with Patient Total time spent providing and/or coordinating discharge services: Greater than 30 minutes - Quality: VTE Deep Vein Thrombosis/Pulmonary Embolism Present on Admission: No Exam Vital signs: Vital Signs 05/22/18 09:29 05/22/18 09:30 05/22/18 10:00 Temperature Pulse Rate 70 69 59 L Respiratory Rate 26 H 25 H 23 Blood Pressure 171/84 H 169/84 H 149/70 H Pulse Oximetry 95 96 92 L 05/22/18 10:30 05/22/18 11:00 05/22/18 11:30 Temperature Pulse Rate 64 67 67 Respiratory Rate 27 H 26 H 24 Blood Pressure 149/70 H 167/88 H 139/67 Pulse Oximetry 91 L 90 L 95 05/22/18 11:38 05/22/18 11:59 05/22/18 12:00 Temperature 98 F Pulse Rate 65 90 67 Respiratory Rate 22 18 25 H Blood Pressure 139/67 152/76 H Pulse Oximetry 96 97 05/22/18 12:30 05/22/18 13:00 05/22/18 13:30 Temperature Pulse Rate 69 68 67 Respiratory Rate 23 20 23 Blood Pressure 153/74 H 153/74 H 151/76 H Pulse Oximetry 96 96 96 05/22/18 14:00 05/22/18 14:30 05/22/18 15:00 Temperature Pulse Rate 71 69 73 Respiratory Rate 23 53 H 23 Blood Pressure 155/81 H 163/84 H 170/81 H Pulse Oximetry 94 L 94 L 91 L 05/22/18 15:30 05/22/18 16:00 05/22/18 16:01 Temperature 98 F Pulse Rate 69 67 60 Respiratory Rate 28 H 18 Blood Pressure 162/77 H 154/86 H Pulse Oximetry 93 L 94 L 05/22/18 17:00 05/22/18 18:00 05/22/18 19:00 Temperature Pulse Rate 66 69 63 Respiratory Rate 105 H 24 Blood Pressure 171/81 H 170/83 H Pulse Oximetry 96 94 L 96 05/22/18 19:01 05/22/18 20:00 05/22/18 20:40 Temperature 98.2 F Pulse Rate 63 66 66 Respiratory Rate 22 24 24 Blood Pressure 170/82 H 172/77 H 159/75 H Pulse Oximetry 95 95 96 05/22/18 21:00 05/22/18 22:00 05/22/18 23:21 Temperature Pulse Rate 63 61 Respiratory Rate 20 21 Blood Pressure 150/75 H 151/79 H Pulse Oximetry 96 97 96 05/22/18 23:48 05/22/18 23:56 05/22/18 23:58 Temperature Pulse Rate 59 L Respiratory Rate Blood Pressure Pulse Oximetry 99 99 05/22/18 23:59 05/23/18 00:00 05/23/18 00:10 Temperature 97.8 F Pulse Rate 62 62 59 L Respiratory Rate 16 18 Blood Pressure 146/83 H Pulse Oximetry 95 05/23/18 04:00 05/23/18 04:27 05/23/18 07:58 Temperature 98.6 F Pulse Rate 57 L 60 62 Respiratory Rate 20 16 20 Blood Pressure 124/68 Pulse Oximetry 98 98 95 Intake & Output 05/22/18 05/23/18 05/23/18 18:59 06:59 18:59 Intake Total 100 / 100 470 / 470 Output Total 850 / 850 Balance -750 / -750 470 / 470 Weight 139.3 kg Intake: IV 100 / 100 150 / 150 Zosyn 3.375 GM Premix 50 ML @ 100 / 100 150 / 150 100 mls/hr IV.SIG Q6H ARABELLA Rx#: [id number] Oral 220 / 220 Other 100 / 100 Output: Urine Amount (Catheter) 850 / 850 Indwelling Urethral Catheter 850 / 850 Other: # Voids 2 Date of Last Bowel Movement 05/20/18 05/22/18 # Bowel Movements 1 Narrative: GENERAL: Alert, NAD. SKIN: Warm and dry. HEAD: Normocephalic. EYES: No scleral icterus. No injection or drainage. NECK: Supple, trachea midline. No JVD or lymphadenopathy. CARDIOVASCULAR: Regular rate and rhythm without murmurs, gallops, or rubs. RESPIRATORY: Breath sounds equal bilaterally. No accessory muscle use. GASTROINTESTINAL: Abdomen soft, non-tender, nondistended. MUSCULOSKELETAL: No cyanosis, or edema. BACK: Nontender without obvious deformity. No CVA tenderness. Results Procedures completed during hospitalization: None. Labs on day of discharge: Labs from last 24 hours 05/23/18 05/22/18 05/22/18 07:50 20:41 16:15 POC Glucose 137 H 114 H 98 05/22/18 11:13 POC Glucose 121 H - Impressions ITS Impressions Chest CTA 05/17/18 16:54 CONCLUSION: 1. Large bilateral pulmonary emboli as described above. 2. Findings have been discussed with Dr. Holliday on today's date. Chest X-Ray 05/22/18 00:00 CONCLUSION: Right lung base opacity is present may be due to a combination of consolidation and or pleural effusion. Discharge Plan - Discharge Disposition Patient Disposition: /[facility] - Discharge Condition Condition: Stable - Discharge Order Discharge Orders: Discharge Order (Routine); Ordered 05/23/18 Ordered By: Elizabeth Gan - Discharge Details Anticipated Discharge Date: 05/23/18 - Physicians Team Primary Care Provider: Primary Care Lucita,Saida Attending Provider: Elizabeth Gan Other Providers: Joseph Arias MD ; Ken Valladares MD
== END 2018-05-23 11:13 | disposition home health service (06) ==
LOC: PHED 15:18 → PHEDA 17:03 → HIMC 20:10 → N05 05-22 22:38
PROVIDERS: ADMIT Hospitalist; ATTEND Hospitalist